=== PATIENT | female | born 1935 | race Caucasian/White ===

== ENCOUNTER 2016-11-07 12:49 | Emergency (ER) | payer OTHER, BC ==
[2016-11-07 13:05] VITALS: BMI 25.7
--- NOTE | 2016-11-07 13:07 | PDOC ---
[id number] No Limitations <Leo Gomez - Last Filed: 11/07/16 14:53> <Juli,Claudy - Last Filed: 11/12/16 16:20> - General Chief Complaint: Chest Pain Stated Complaint: CHEST PAIN Time Seen by Provider: 11/07/16 13:06 - History of Present Illness Initial Comments: 11/07/16 14:56 The patient is a 81 year old female presenting with family, with a significant past medical history of Colon CA (x2), GERD, gastritis, Colon polyp, HTN and HLD , who presents to the emergency department with chest pain for the past couple of days. She describes her chest pain as ranging from mild to moderate, with radiation to her upper back. She notes that the pain is exacerbated when she takes a deep breath. She states that she experienced the same kind of pain week or so ago while she was in [place] and was worked up by the ED there. She was given pain medication and sent home after improvement of symptoms. She states that she flew back to [place] and remained sedetary. Not getting up to use the bathroom or walk the aisles. The patient denies shortness of breath, headache and dizziness. Denies fever, chills, nausea, vomit, diarrhea and constipation. Denies dysuria, frequency, urgency and hematuria. Allergies: None Past surgical history: Colon resection, appendectomy Social history: No alcohol, tobacco or drug use reported (Leo Gomez) Past History <Leo Gomez - Last Filed: 11/07/16 14:53> - Past Medical History Anemia: No Asthma: No Cancer: Yes (COLON CA X 2) Cardiac Disorders: No CVA: No COPD: No CHF: No Dementia: No Diabetes: No GI Disorders: Yes (GERD, GASTRITIS, COLON POLYPS, GALLSTONE) Disorders: No HTN: Yes Hypercholesterolemia: Yes Liver Disease: No Seizures: No Thyroid Disease: Yes (HYPER?) - Surgical History Abdominal Surgery: Yes (colon resection x 2) Appendectomy: Yes Cardiac Surgery: No Cholecystectomy: No Lung Surgery: No Neurologic Surgery: No Orthopedic Surgery: No - Immunization History Immunization Up to Date: Yes - Psycho/Social/Smoking Cessation Hx Anxiety: No Suicidal Ideation: No Smoking Status: No Smoking History: Never smoked Have you smoked in the past 12 months: No Number of Cigarettes Smoked Daily: 0 Information on smoking cessation initiated: No Hx Alcohol Use: No Drug/Substance Use Hx: No Substance Use Type: None Hx Substance Use Treatment: No <Claudy Bustos - Last Filed: 11/12/16 16:20> - Past Medical History Allergies/Adverse Reactions: Allergies Allergy/AdvReac Type Severity Reaction Status Date / Time No Known Allergies Allergy Verified 11/07/16 13:00 Home Medications: Ambulatory Orders Amlodipine Besylate [Norvasc -] 2.5 mg PO DAILY 12/13/13 Calcium Carbonate [Calcium] 600 mg PO BID 12/13/13 Methimazole 5 mg PO DAILY 12/13/13 Escitalopram Oxalate [Lexapro -] 10 mg PO HS #0 12/16/13 Pitavastatin Calcium [Livalo] 1 mg PO DAILY 02/07/14 [place]-3 Fatty Acids [[place]-3] 1,830 mg PO DAILY 02/08/14 Multivit-Min/FA/Lycopen/Lutein [Centrum Silver Tablet] 1 each PO DAILY 04/14/16 Aspirin Coated [Ecotrin -] 81 mg PO DAILY #30 tablet.ec 04/15/16 Polyethylene Glycol 3350 [Miralax 255 gm Btl] 17 gm PO DAILY #1 bottle 04/15/16 Wheat Dextrin [Benefiber] 144 gm PO TID #0 powder 04/15/16 Cardiac Specific PMH - Complaint Specific PMHX Pacemaker: No <Claudy Bustos - Last Filed: 11/12/16 16:20> Review of Systems - Review of Systems Able to Perform ROS?: Yes <Leo Gomez - Last Filed: 11/07/16 14:53> <Claudy Bustos - Last Filed: 11/12/16 16:20> - Review of Systems Comments:: 11/07/16 14:56 CONSTITUTIONAL: No fever, no chills, no fatigue EYES: No visual changes ENT: No ear pain, no sore throat CARDIOVASCULAR: +Chest pain. No palpitations RESPIRATORY: No cough, no SOB GI: No abdominal pain, no nausea, no vomiting, no constipation, no diarrhea GENITOURINARY: No dysuria, no frequency, no hematuria MUSKULOSKELETAL: No backpain, no joint pain, no myalgias SKIN: No rash NEURO: No headache (Leo Gomez) *Physical Exam <Leo Gomez - Last Filed: 11/07/16 14:53> <Claudy Bustos - Last Filed: 11/12/16 16:20> - Vital Signs Last Vital Signs Temp Pulse Resp BP Pulse Ox 98.5 F 78 14 133/69 97 11/07/16 18:23 11/07/16 18:23 11/07/16 18:23 11/07/16 18:23 11/07/16 18:23 - Physical Exam Comments: 11/07/16 14:57 CONSTITUTIONAL: Well-appearing; well-nourished; in no apparent distress HEAD: Normocephalic; atraumatic EYES: PERRL; EOM intact ENMT: External appears normal; normal oropharynx NECK: Supple; non-tender; no cervical lymphadenopathy CARD: Normal S1, S2; no murmurs, rubs, or gallops RESP: Normal chest excursion with respiration; breath sounds clear and equal bilaterally; no wheezes, rhonchi, or rales ABD: Soft, non-distended; non-tender; no palpable organomegaly, no palpable hernias EXT: Normal ROM in all four extremities; non-tender to palpation; distal pulses intact SKIN: Warm, dry, no rash NEURO: No focal neurological deficiencies. (Leo Gomez) Heart Score/ECG Review #1 ECG reviewed & interpreted by me at: 14:09 <Leo Gomez - Last Filed: 11/07/16 14:53> <Claudy Bustos - Last Filed: 11/12/16 16:20> #1 11/07/16 14:09 Ventricular rate: 73 bpm Normal sinus rhythm Poor waves in V1, V2 and V3 (Leo Gomez) ED Treatment Course - LABORATORY CBC & Chemistry Diagram: 11/07/16 13:37 11/07/16 13:37 <Leo Gomez - Last Filed: 11/07/16 14:53> - LABORATORY CBC & Chemistry Diagram: 11/07/16 13:37 11/07/16 13:37 <Claudy Bustos - Last Filed: 11/12/16 16:20> - ADDITIONAL ORDERS Additional order review: 11/07/16 13:37 RBC 4.23 MCV 90.2 MCHC 34.1 RDW 13.3 MPV 7.0 L Neutrophils % 76.8 D Lymphocytes % 13.9 D Monocytes % 8.3 Eosinophils % 0.7 Basophils % 0.3 - RADIOLOGY Radiology Studies Ordered: Category Date Time Status CHEST X-RAY PORTABLE* [RAD] Stat Radiology 11/07/16 13:23 Completed Radiograph Interpretation: 11/07/16 14:09 Chest X-Ray Reviewed by: Dr. Frank Angel Impression; Large heart. No acute chest pathology. (Leo Gomez) - Medications Given in the ED: ED Medications Discontinued Medications Generic Name Dose Route Start Last Admin Trade Name Lucho PRN Reason Stop Dose Admin Acetaminophen 650 mg 11/07/16 15:15 11/07/16 15:26 Tylenol - PO 11/07/16 15:16 650 mg ONCE ONE Administration Al Hydroxide/Mg Hydroxide 30 ml 11/07/16 19:36 11/07/16 20:37 Mylanta Oral Suspension - PO 11/07/16 19:37 30 ml ONCE ONE Administration Famotidine/Sodium Chloride 50 mls @ 100 mls/hr 11/07/16 15:20 11/07/16 15:26 Pepcid 20 Mg Premixed Ivpb - IVPB 11/07/16 15:49 100 mls/hr ONCE ONE Administration Ibuprofen 400 mg 11/07/16 14:15 11/07/16 14:19 Motrin - PO 11/07/16 14:16 400 mg ONCE ONE Administration *DC/Admit/Observation/Transfer <Leo Gomez - Last Filed: 11/07/16 14:53> <Claudy Bustos - Last Filed: 11/12/16 16:20> Diagnosis at time of Disposition: Chest pain - Discharge Dispostion Disposition: HOME Condition at time of disposition: Stable - Referrals Referrals: Kiel Araya MD [Staff Physician] - Panda Dubois MD [Primary Care Provider] - - Patient Instructions Printed Discharge Instructions: DI for Chest Pain Additional Instructions: You have had two negative troponins. However, it is very very important that if your chest pain worsens, return to the ER. Please return to Dr. Araya's office on Wednesday. Feel better! - Attestations Scribe Attestion: 11/07/16 14:57 Documentation prepared by Leo Gomez, acting as ophthalmic medical technician for Claudy Bustos MD (Jason,Leo Floyd)
[2016-11-07 14:01] LABS: BASOPHIL 0.3 % (0-2.0); EOSINOPHIL 0.7 % (0-4.5); MCH 30.7 pg (25.7-33.7); MCHC 34.1 g/dl (32.0-36.0); MEAN CELL VOLUME 90.2 fl (80-96); NEUTROPHILS 76.8 % (42.8-82.8); PLATELET COUNT 138 K/MM3 (134-434); RDW 13.3 % (11.6-15.6); WHITE BLOOD COUNT 6.7 K/mm3 (4.0-10.0)
[2016-11-07] MEDS ORDERED: IBUPROFEN 400 MG TABLET (FP) PO ONE ×2 (14:13→14:15)
[2016-11-07 14:20] LABS: INR 1.13 (0.82-1.09); PROTHROMBIN TIME (PATIENT) 12.5 SEC (9.98-11.88)
[2016-11-07 14:25] LABS: ALBUMIN 4.1 g/dl (3.4-5.0); ANION GAP 9 (8-16); CALCIUM 9.8 mg/dL (8.5-10.1); CO2 29 mmol/L (21-32); CREATININE 0.9 mg/dL (0.55-1.02); GLUCOSE,RANDOM 94 mg/dL (74-106); SGOT/AST 22 U/L (15-37); SGPT/ALT 21 U/L (12-78)
[2016-11-07 14:28] LABS: ALK PHOS 74 U/L (45-117); BILIRUBIN,TOTAL 0.6 mg/dL (0.2-1.0); TOT PROT 7.3 g/dl (6.4-8.2); TROPONIN I < 0.02 ng/ml (0.00-0.05)
[2016-11-07] MEDS ORDERED: ACETAMINOPHEN 325 MG TABLET (FP) PO ONE (15:15)
[2016-11-07] MEDS ORDERED: ACETAMINOPHEN 325 MG TABLET (FP) ONE (15:19)
[2016-11-07] MEDS ORDERED: FAMOTIDINE 20 MG/50 ML IVPB 50 ML IVPB ONE ×2 (15:20)
[2016-11-07 18:26] VITALS: BP 133/69; PULSE 78; TEMP 98.5
[2016-11-07 19:21] LABS: TROPONIN I < 0.02 ng/ml (0.00-0.05)
[2016-11-07] MEDS ORDERED: MAG HYDROX/AL HYDROX/SIMETH 30 ML UNIT-DOSE CUP PO ONE (19:36)
[2016-11-07] MEDS ORDERED: MAG HYDROX/AL HYDROX/SIMETH 30 ML UNIT-DOSE CUP ONE (20:05)
--- NOTE | 2016-11-07 20:12 | PDOC ---
*Physical Exam - Vital Signs Last Vital Signs Temp Pulse Resp BP Pulse Ox 98.5 F 78 14 133/69 97 11/07/16 18:23 11/07/16 18:23 11/07/16 18:23 11/07/16 18:23 11/07/16 18:23 ED Treatment Course - LABORATORY CBC & Chemistry Diagram: 11/07/16 13:37 11/07/16 13:37 - ADDITIONAL ORDERS Additional order review: Laboratory Results 11/07/16 11/07/16 11/07/16 18:45 13:37 13:37 INR 1.13 D-Dimer 206 Sodium 140 Potassium 4.0 Chloride 102 Carbon Dioxide 29 Anion Gap 9 BUN 26 H D Creatinine 0.9 D Creat Clearance w eGFR > 60 Random Glucose 94 Calcium 9.8 Total Bilirubin 0.6 D AST 22 ALT 21 Alkaline Phosphatase 74 D Creatine Kinase 51 73 Troponin I < 0.02 < 0.02 Total Protein 7.3 Albumin 4.1 11/07/16 13:37 RBC 4.23 MCV 90.2 MCHC 34.1 RDW 13.3 MPV 7.0 L Neutrophils % 76.8 D Lymphocytes % 13.9 D Monocytes % 8.3 Eosinophils % 0.7 Basophils % 0.3 - Medications Given in the ED: ED Medications Discontinued Medications Generic Name Dose Route Start Last Admin Trade Name Lucho PRN Reason Stop Dose Admin Acetaminophen 650 mg 11/07/16 15:15 11/07/16 15:26 Tylenol - PO 11/07/16 15:16 650 mg ONCE ONE Administration Famotidine/Sodium Chloride 50 mls @ 100 mls/hr 11/07/16 15:20 11/07/16 15:26 Pepcid 20 Mg Premixed Ivpb - IVPB 11/07/16 15:49 100 mls/hr ONCE ONE Administration Ibuprofen 400 mg 11/07/16 14:15 11/07/16 14:19 Motrin - PO 11/07/16 14:16 400 mg ONCE ONE Administration Medical Decision Making - Medical Decision Making 11/07/16 20:12 CBC, BMP 11/07/16 13:37 11/07/16 13:37 CMP Sodium 140 mmol/L (136-145) 11/07/16 13:37 Potassium 4.0 mmol/L (3.5-5.1) 11/07/16 13:37 Chloride 102 mmol/L (98-107) 11/07/16 13:37 Carbon Dioxide 29 mmol/L (21-32) 11/07/16 13:37 Anion Gap 9 (8-16) 11/07/16 13:37 BUN 26 mg/dL (7-18) H D 11/07/16 13:37 Creatinine 0.9 mg/dL (0.55-1.02) D 11/07/16 13:37 Creat Clearance w eGFR > 60 (>60) 11/07/16 13:37 Random Glucose 94 mg/dL (74-106) 11/07/16 13:37 Calcium 9.8 mg/dL (8.5-10.1) 11/07/16 13:37 Total Bilirubin 0.6 mg/dL (0.2-1.0) D 11/07/16 13:37 AST 22 U/L (15-37) 11/07/16 13:37 ALT 21 U/L (12-78) 11/07/16 13:37 Alkaline Phosphatase 74 U/L (45-117) D 11/07/16 13:37 Creatine Kinase 51 IU/L (26-192) 11/07/16 18:45 Troponin I < 0.02 ng/ml (0.00-0.05) 11/07/16 18:45 Total Protein 7.3 g/dl (6.4-8.2) 11/07/16 13:37 Albumin 4.1 g/dl (3.4-5.0) 11/07/16 13:37 Patient has had two negative troponins. When I had re-examined the patient, the patient reported some improvement in her symptoms. She states that that she has had diarrhea in addition to feeling weak. She reports midsternal sharp chest pain, not always exertional. It does have some atypical components. I recommended admission to the hospital. I had also discussed the case with Dr. Eaton who also agrees if chest pain is not explained, that the patient would benefit from an admission. However, after talking with the patient and her son, the patient does not want to be admitted. States that she understands the risks and that there is risk of ACS. I explained that she does have atypical features, but given her age and medical history, I am unable to fully clear her from a cardiac perspective. After much discussion, the patient and her son decided to follow up with Dr. Araya in 2 days in his office. Pt is AAOx3 and has capacity. Return precautions given including worsening chest pain. I discussed the physical exam findings, ancillary test results and final diagnoses with the patient. I answered all of the patient's questions. The patient was satisfied with the care received and felt comfortable with the discharge plan and treatment plan. The patient will call their primary care physician within 24 hours to arrange follow-up and will return to the Emergency Department with any new, persistant or worsening symptoms. *DC/Admit/Observation/Transfer Diagnosis at time of Disposition: Chest pain Qualifiers: Chest pain type: unspecified Qualified Code(s): R07.9 - Chest pain, unspecified - Discharge Dispostion Disposition: HOME Condition at time of disposition: Stable Admit: No - Referrals Referrals: Panda Dubois MD [Primary Care Provider] - Kiel Araya MD [Staff Physician] - - Patient Instructions Printed Discharge Instructions: DI for Chest Pain Additional Instructions: You have had two negative troponins. However, it is very very important that if your chest pain worsens, return to the ER. Please return to Dr. Araya's office on Wednesday. Feel better! - Post Discharge Activity
--- NOTE | 2016-11-10 07:29 | EKG ---
Test Reason : Blood Pressure : / mmHG Vent. Rate : 093 BPM Atrial Rate : 093 BPM P-R Int : 198 ms QRS Dur : 080 ms QT Int : 366 ms P-R-T Axes : 062 -03 058 degrees QTc Int : 455 ms NORMAL SINUS RHYTHM SEPTAL INFARCT (CITED ON OR BEFORE 03-NOV-2011) INFERIOR INFARCT , POSSIBLY ACUTE ABNORMAL ECG WHEN COMPARED WITH ECG OF 07-NOV-2016 12:56, ST ELEVATION NOW PRESENT IN LATERAL LEADS Confirmed by ROJAS BRONSON MD ([id number]) on 11/10/2016 7:29:01 AM Referred By: Confirmed By:ROJAS BRONSON MD
--- NOTE | 2016-11-10 22:00 | EKG ---
Test Reason : Blood Pressure : / mmHG Vent. Rate : 073 BPM Atrial Rate : 073 BPM P-R Int : 204 ms QRS Dur : 086 ms QT Int : 398 ms P-R-T Axes : 011 -01 057 degrees QTc Int : 438 ms NORMAL SINUS RHYTHM POSSIBLE ANTERIOR INFARCT (CITED ON OR BEFORE 03-NOV-2011) ABNORMAL ECG WHEN COMPARED WITH ECG OF 13-DEC-2013 19:53, NO SIGNIFICANT CHANGE WAS FOUND Confirmed by AIYANA ALVAREZ, ROJAS (2016) on 11/10/2016 9:59:38 PM Referred By: Confirmed By:ROJAS BRONSON MD
== END 2016-11-07 20:38 | disposition home or self-care (01) ==
LOC: JER 12:49
PROC: 3E033GC Introduction of Other Therapeutic Substance into Peripheral Vein, Percutaneous Approach (ICD-10-PCS; principal; 2016-11-07)
DX: R07.9 Chest pain, unspecified (principal); I10 Essential (primary) hypertension; E78.00 Pure hypercholesterolemia, unspecified; K21.9 Gastro-esophageal reflux disease without esophagitis; K29.00 Acute gastritis without bleeding; Z85.038 Personal history of other malignant neoplasm of large intestine
CPT/HCPCS: 36415; 71010-TC; 80053; 82550; 84484; 85025; 85379; 85610; 93005; 93010; 96365; 99285-25

== ENCOUNTER 2016-11-08 08:51 | Emergency (ER) | payer OTHER, BC ==
[2016-11-08 08:57] VITALS: BMI 25.7
[2016-11-08] MEDS ORDERED: ASPIRIN 81 MG CHEWABLE TABLETS ONE (09:14)
[2016-11-08] MEDS ORDERED: SODIUM CHLORIDE 500 ML IV STA (09:16)
[2016-11-08] MEDS ORDERED: ASPIRIN 81 MG CHEWABLE TABLETS PO ONE (09:16)
[2016-11-08] MEDS ORDERED: NITROGLYCERIN SUBLINGUAL 1/150 0.4 MG TAB SL PRN (09:16)
--- NOTE | 2016-11-08 09:27 | PDOC ---
History of Present Illness <Berkley Quiros - Last Filed: 11/08/16 10:41> - History of Present Illness Initial Comments: 11/08/16 09:27 Patient seen immediately on arrival by me, documentation done later 81-year-old female with a past medical history of colon cancer, GERD, gastritis , colon polyps, hypertension, and hyperlipidemia She was in the emergency department yesterday with chest pain off and on for the past few days She describes her chest pain as mid to upper chest radiating to the neck and back, off and on She had 2 sets of negative cardiac enzymes yesterday, and signed out AGAINST MEDICAL ADVICE She states that she went to bed, and awakened this morning with more severe substernal and upper chest pain radiating to her neck and back She states the pain still is worse with deep inspiration She states that she was nauseated and vomited this morning She states that she had diaphoresis with the pain this morning She denies any shortness of breath She describes her chest pain is 8 on 10 at this time She has no prior history of CAD or stents Patient was seen immediately on arrival by me, as she is still actively having chest pain at this time 11/08/16 09:57 <Natalee Brito - Last Filed: 11/08/16 21:55> - General Chief Complaint: Lightheaded Stated Complaint: WEAKNESS, VOMITING Time Seen by Provider: 11/08/16 09:16 Past History <Berkley Quiros - Last Filed: 11/08/16 10:41> - Past Medical History Anemia: No Asthma: No Cancer: Yes (COLON CA X 2) Cardiac Disorders: No CVA: No COPD: No CHF: No Dementia: No Diabetes: No GI Disorders: Yes (GERD, GASTRITIS, COLON POLYPS, GALLSTONE) Disorders: No HTN: Yes Hypercholesterolemia: Yes Liver Disease: No Seizures: No Thyroid Disease: Yes (HYPER?) - Surgical History Abdominal Surgery: Yes (colon resection x 2) Appendectomy: Yes Cardiac Surgery: No Cholecystectomy: No Lung Surgery: No Neurologic Surgery: No Orthopedic Surgery: No - Immunization History Immunization Up to Date: Yes - Psycho/Social/Smoking Cessation Hx Anxiety: No Suicidal Ideation: No Smoking Status: No Smoking History: Never smoked Have you smoked in the past 12 months: No Number of Cigarettes Smoked Daily: 0 Information on smoking cessation initiated: No Hx Alcohol Use: No Drug/Substance Use Hx: No Substance Use Type: None Hx Substance Use Treatment: No <Natalee Brito - Last Filed: 11/08/16 21:55> - Past Medical History Allergies/Adverse Reactions: Allergies Allergy/AdvReac Type Severity Reaction Status Date / Time No Known Allergies Allergy Verified 11/08/16 08:53 Home Medications: Ambulatory Orders Amlodipine Besylate [Norvasc -] 2.5 mg PO DAILY 12/13/13 Calcium Carbonate [Calcium] 600 mg PO BID 12/13/13 Methimazole 5 mg PO DAILY 12/13/13 Escitalopram Oxalate [Lexapro -] 10 mg PO HS #0 12/16/13 Pitavastatin Calcium [Livalo] 1 mg PO DAILY 02/07/14 [place]-3 Fatty Acids [[place]-3] 1,830 mg PO DAILY 02/08/14 Multivit-Min/FA/Lycopen/Lutein [Centrum Silver Tablet] 1 each PO DAILY 04/14/16 Aspirin Coated [Ecotrin -] 81 mg PO DAILY #30 tablet.ec 04/15/16 Polyethylene Glycol 3350 [Miralax 255 gm Btl] 17 gm PO DAILY #1 bottle 04/15/16 Wheat Dextrin [Benefiber] 144 gm PO TID #0 powder 04/15/16 *Physical Exam - Vital Signs Last Vital Signs Temp Pulse Resp BP Pulse Ox 97.9 F 87 14 90/59 97 11/08/16 09:50 11/08/16 09:50 11/08/16 09:50 11/08/16 09:50 11/08/16 09:50 <Berkley Quiros - Last Filed: 11/08/16 10:41> - Vital Signs Last Vital Signs Temp Pulse Resp BP Pulse Ox 97.7 F 97 H 18 116/73 100 11/08/16 08:55 11/08/16 08:55 11/08/16 08:55 11/08/16 08:55 11/08/16 08:55 - Physical Exam Comments: 11/08/16 09:31 Physical exam Last Vital Signs Temp Pulse Resp BP Pulse Ox 97.7 F 97 H 18 116/73 100 11/08/16 08:55 11/08/16 08:55 11/08/16 08:55 11/08/16 09:21 11/08/16 08:55 GENERAL: The patient is awake, alert, and fully oriented, and in no apparent distress. HEAD: Normal with no signs of trauma. EYES: sclera anicteric, conjunctiva are normal. ENT: Moist mucous membranes. NECK: Normal range of motion, supple LUNGS: Breath sounds equal, clear to auscultation bilaterally. No wheezes, and no crackles. HEART: Regular rate and rhythm, normal S1 and S2 without murmur, rub or gallop. ABDOMEN: Soft, nontender, normoactive bowel sounds. No guarding, no rebound. No masses appreciated. EXTREMITIES: Normal range of motion, no edema. No clubbing or cyanosis. No cords, erythema, or tenderness. NEUROLOGICAL: Cranial nerves II through XII grossly intact. Normal speech, normal gait. PSYCH: Normal mood, normal affect. SKIN: Warm, Dry, normal turgor, no rashes or lesions noted. <Natalee Brito - Last Filed: 11/08/16 21:55> ED Treatment Course - LABORATORY CBC & Chemistry Diagram: 11/08/16 09:12 11/08/16 09:12 - ADDITIONAL ORDERS Additional order review: Laboratory Results 11/08/16 11/08/16 11/08/16 10:01 09:22 09:12 INR PTT (Actin FS) 34.2 D-Dimer 354 H Sodium Potassium Chloride Carbon Dioxide Anion Gap BUN Creatinine Creat Clearance w eGFR Random Glucose Calcium Magnesium Total Bilirubin AST ALT Alkaline Phosphatase Creatine Kinase Troponin I B-Natriuretic Peptide 412.87 Total Protein Albumin Triglycerides 78 D Cholesterol 113 D Total LDL Cholesterol 57 HDL Cholesterol 51 D 11/08/16 11/08/16 09:12 09:12 INR 1.37 H PTT (Actin FS) D-Dimer Sodium 138 Potassium 4.3 Chloride 101 Carbon Dioxide 25 Anion Gap 12 BUN 26 H Creatinine 1.0 Creat Clearance w eGFR 53.21 Random Glucose 196 H D Calcium 9.1 Magnesium 2.3 Total Bilirubin 1.0 D AST 36 D ALT 40 D Alkaline Phosphatase 68 Creatine Kinase 50 Troponin I < 0.02 B-Natriuretic Peptide Total Protein 7.0 Albumin 3.8 Triglycerides Cholesterol Total LDL Cholesterol HDL Cholesterol 11/08/16 09:12 RBC 4.20 MCV 92.3 MCHC 33.5 RDW 13.7 MPV 8.3 D Neutrophils % 79.0 Lymphocytes % 11.1 D Monocytes % 9.5 Eosinophils % 0.1 D Basophils % 0.3 - Medications Given in the ED: ED Medications Discontinued Medications Generic Name Dose Route Start Last Admin Trade Name Lucho PRN Reason Stop Dose Admin Aspirin 325 mg 11/08/16 09:16 11/08/16 09:20 Asa - PO 11/08/16 09:17 325 mg ONCE ONE Administration Atorvastatin Calcium 80 mg 11/08/16 09:45 11/08/16 10:22 Lipitor - PO 11/08/16 09:46 80 mg ONCE ONE Administration Clopidogrel Bisulfate 600 mg 11/08/16 09:45 11/08/16 10:22 Plavix - PO 11/08/16 09:46 600 mg ONCE ONE Administration Sodium Chloride 500 mls @ 500 mls/hr 11/08/16 09:16 11/08/16 09:21 Normal Saline - IV 11/08/16 10:15 500 mls/hr ASDIR STA Administration Metoprolol Tartrate 12.5 mg 11/08/16 09:45 11/08/16 10:22 Lopressor - PO 11/08/16 09:46 12.5 mg ONCE ONE Administration <Berkley Quiros - Last Filed: 11/08/16 10:41> - LABORATORY CBC & Chemistry Diagram: 11/08/16 09:12 11/08/16 09:12 - RADIOLOGY Radiology Studies Ordered: Category Date Time Status CHEST PA & LAT [RAD] Stat Radiology 11/08/16 09:16 Ordered <Natalee Brito - Last Filed: 11/08/16 21:55> Medical Decision Making - Medical Decision Making 11/08/16 10:41 Courtesy call placed to Dr. Panda Moscoso. Informed by service that Dr. Vitaly Mosley is covering. Dr. Kay Howard/Lupe Agudelo covers for Dr. Vitaly Mosley. <Berkley Quiros - Last Filed: 11/08/16 10:41> - Critical Care Time Total Critical Care Time (minutes): 45 Critical Care Statement: The care of this patient involved high complexity decision making to prevent further life threatening deterioration of the patient 's condition and/or to evalute & treat vital organ system(s) failure or risk of failure. - Medical Decision Making 11/08/16 09:31 Patient seen immediately on arrival by me documentation done later Pt with CP, STEMI on EKG EKG Normal sinus rhythm 93, left axis deviation There is ST elevation in the inferolateral leads 2, 3, F, V5, and V6 - STEMI Other nonspecific ST-T waves are noted When compared to the EKG of 11/07/16, yesterday afternoon There was a very subtle hint of possible ST elevation in the inferolateral leads , but it is certainly more pronounced on today's EKG Started with 325 of aspirin, and nitroglycerin Spoke to Dr. [id number]-she is on her way in and speaking to interventional cardiology at [facility] The EKG was sent to Dr. Beck by photograph + text message 11/08/16 09:55 EKG #2 There is slightly more pronounced ST elevation in the inferolateral leads, and now also in the septal leads of V3 V4 STEMI Patient is getting nitroglycerin drip at 3 mics per minute, heparin bolus and heparin drip, Plavix, Lipitor She states her chest pain is starting to improve, but still a 6 out of 10 Patient's son is with her, discussed potential Transfer to [facility] Dr. Beck is on the way in 11/08/16 10:12 Dr. 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 Beck, and she felt that at 4 cm, and unchanged from 201209/28/2014, that this was not an issue at this time 11/08/16 10:25 Transport team here to take patient to the cardiac Licensed Nuclear Control Room Operator at [facility] 11/08/16 10:33 Chest pain down to 3 out of 10 at time of transport First set cardiac enzymes negative Laboratory Results - last 24 hr 11/08/16 11/08/16 11/08/16 09:12 09:12 09:12 WBC 8.0 RBC 4.20 Hgb 13.0 Hct 38.8 MCV 92.3 MCHC 33.5 RDW 13.7 Plt Count 132 L MPV 8.3 D Neutrophils % 79.0 Lymphocytes % 11.1 D Monocytes % 9.5 Eosinophils % 0.1 D Basophils % 0.3 INR 1.37 H PTT (Actin FS) D-Dimer Sodium 138 Potassium 4.3 Chloride 101 Carbon Dioxide 25 Anion Gap 12 BUN 26 H Creatinine 1.0 Creat Clearance w eGFR 53.21 Random Glucose 196 H D Calcium 9.1 Magnesium 2.3 Total Bilirubin 1.0 D AST 36 D ALT 40 D Alkaline Phosphatase 68 Creatine Kinase 50 Troponin I < 0.02 B-Natriuretic Peptide Total Protein 7.0 Albumin 3.8 Triglycerides Cholesterol Total LDL Cholesterol HDL Cholesterol 11/08/16 11/08/16 11/08/16 09:12 09:22 10:01 WBC RBC Hgb Hct MCV MCHC RDW Plt Count MPV Neutrophils % Lymphocytes % Monocytes % Eosinophils % Basophils % INR PTT (Actin FS) 34.2 D-Dimer 354 H Sodium Potassium Chloride Carbon Dioxide Anion Gap BUN Creatinine Creat Clearance w eGFR Random Glucose Calcium Magnesium Total Bilirubin AST ALT Alkaline Phosphatase Creatine Kinase Troponin I B-Natriuretic Peptide 412.87 Total Protein Albumin Triglycerides 78 D Cholesterol 113 D Total LDL Cholesterol 57 HDL Cholesterol 51 D 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 Pillai Transfer comment: 11/08/16 10:34 Patient going directly to cardiac Licensed [facility] Control Room Operator at [facility] <Natalee Brito - Last Filed: 11/08/16 21:55> Diagnosis at time of Disposition: Acute VA, Chest pain, ST elevation myocardial infarction (STEMI) - Discharge Dispostion Disposition: TRANSFER ACUTE CARE/OTHER HOSP Condition at time of disposition: Fair - Referrals Referrals: Panda Dubois MD [Primary Care Provider] -
[2016-11-08] MEDS ORDERED: NITROGLYCERIN SUBLINGUAL 1/150 0.4 MG TAB ONE (09:28)
[2016-11-08] MEDS ORDERED: NITROGLYCERIN 25MG/D5W 250ML 250 ML IVPB ONE (09:28)
[2016-11-08] MEDS ORDERED: NITROGLYCERIN 25MG/D5W 250ML 250 ML IVPB SCH (09:30)
[2016-11-08 09:34] LABS: BASOPHIL 0.3 % (0-2.0); EOSINOPHIL 0.1 % (0-4.5); MCH 30.9 pg (25.7-33.7); MCHC 33.5 g/dl (32.0-36.0); MEAN CELL VOLUME 92.3 fl (80-96); MEAN PLT VOLUME 8.3 fl (7.5-11.1); PLATELET COUNT 132 K/MM3 (134-434); RDW 13.7 % (11.6-15.6)
[2016-11-08] MEDS ORDERED: HEPARIN NA (PORCINE) 5,000 UNITS/ML 1ML VIAL IVPUSH PRN (09:44)
[2016-11-08] MEDS ORDERED: CLOPIDOGREL BISULFATE 300 MG TABLET PO ONE (09:45)
[2016-11-08] MEDS ORDERED: METOPROLOL TARTRATE 25 MG TABLET (FP) PO ONE (09:45)
[2016-11-08] MEDS ORDERED: HEPARIN INFUSION - 500 ML IVPB SCH (09:45)
[2016-11-08] MEDS ORDERED: ATORVASTATIN CA 80 MG TABLET (FP) PO ONE (09:45)
[2016-11-08 09:48] LABS: INR 1.37 (0.82-1.09); PROTHROMBIN TIME (PATIENT) 15.2 SEC (9.98-11.88)
[2016-11-08] MEDS ORDERED: HEPARIN INFUSION - 500 ML IVPB ONE (10:03)
[2016-11-08] MEDS ORDERED: METOPROLOL TARTRATE 25 MG TABLET (FP) ONE (10:09)
[2016-11-08] MEDS ORDERED: CLOPIDOGREL BISULFATE 300 MG TABLET ONE (10:09)
[2016-11-08] MEDS ORDERED: ATORVASTATIN CA 80 MG TABLET (FP) ONE (10:09)
[2016-11-08 10:12] LABS: ALBUMIN 3.8 g/dl (3.4-5.0); ANION GAP 12 (8-16); CALCIUM 9.1 mg/dL (8.5-10.1); CO2 25 mmol/L (21-32); GLUCOSE,RANDOM 196 mg/dL (74-106); MAGNESIUM 2.3 mg/dL (1.8-2.4); SGOT/AST 36 U/L (15-37); SGPT/ALT 40 U/L (12-78)
[2016-11-08 10:16] LABS: ALK PHOS 68 U/L (45-117); TROPONIN I < 0.02 ng/ml (0.00-0.05)
[2016-11-08 10:41] VITALS: BP 111/70; TEMP 97.9
[2016-11-08 10:44] VITALS: PULSE 87
--- NOTE | 2016-11-10 07:36 | EKG ---
Test Reason : Blood Pressure : / mmHG Vent. Rate : 091 BPM Atrial Rate : 091 BPM P-R Int : 200 ms QRS Dur : 082 ms QT Int : 386 ms P-R-T Axes : 063 008 063 degrees QTc Int : 474 ms NORMAL SINUS RHYTHM WITH SINUS ARRHYTHMIA POSSIBLE ANTERIOR INFARCT (CITED ON OR BEFORE 03-NOV-2011) INFEROLATERAL INJURY PATTERN INFERIOR INFARCT , POSSIBLY ACUTE ABNORMAL ECG WHEN COMPARED WITH ECG OF 08-NOV-2016 09:03, NO SIGNIFICANT CHANGE WAS FOUND Confirmed by ROJAS BRONSON MD (2016) on 11/10/2016 7:35:46 AM Referred By: Confirmed By:ROJAS BRONSON MD
== END 2016-11-08 10:51 | disposition short-term general hospital (02) ==
LOC: JER 08:51
PROC: 3E0337Z Introduction of Electrolytic and Water Balance Substance into Peripheral Vein, Percutaneous Approach (ICD-10-PCS; principal; 2016-11-08)
PROC: 3E033GC Introduction of Other Therapeutic Substance into Peripheral Vein, Percutaneous Approach (ICD-10-PCS; 2016-11-08)
PROC: 3E033GC Introduction of Other Therapeutic Substance into Peripheral Vein, Percutaneous Approach (ICD-10-PCS; 2016-11-08)
DX: I21.19 ST elevation (STEMI) myocardial infarction involving other coronary artery of inferior wall (principal); I10 Essential (primary) hypertension; E78.00 Pure hypercholesterolemia, unspecified; E05.80 Other thyrotoxicosis without thyrotoxic crisis or storm; Z85.038 Personal history of other malignant neoplasm of large intestine
CPT/HCPCS: 36415; 71010-TC; 80053; 80061; 82550; 83721; 83735; 83880; 84484; 85025; 85379; 85610; 85730; 93005; 93010; 96361; 96365; 96367; 99285-25; J1644

== ENCOUNTER 2017-05-01 06:16 | Emergency (ER) | payer OTHER, BC ==
[2017-05-01] MEDS ORDERED: diphenhydrAMINE HCL 25 MG CAPSULE (FP) PO ONE ×2 (06:37→06:45)
[2017-05-01] MEDS ORDERED: predniSONE 20 MG TABLET (UD) PO ONE (06:37)
[2017-05-01 06:42] VITALS: BP 147/90; PULSE 79; TEMP 98.1; BMI 25.6
--- NOTE | 2017-05-01 06:43 | PDOC ---
History of Present Illness - General Stated Complaint: RASH Time Seen by Provider: 05/01/17 06:33 History Source: Patient, Family (Son) Exam Limitations: No Limitations - History of Present Illness Initial Comments: 05/01/17 06:37 81yo Female patient presents to ED with son c/o rash to hands, arm and face. Son state mother out in garden pulling up twigs yesterday and began developing a rash shortly after. Patient states rash worsened and she has been itching and scratching with no relief. Denies OTC medication use. Timing/Duration: reports: yesterday Severity: Yes: moderate Location: reports: extremities, face, hands Respiratory Risk Factors: reports: other Modifying Factors: improves with: scratching Associated Symptoms: reports: blisters, change in skin texture Past History - Travel Traveled outside of the country in the last 30 days: No Close contact w/someone who was outside of country & ill: No - Past Medical History Allergies/Adverse Reactions: Allergies Allergy/AdvReac Type Severity Reaction Status Date / Time No Known Allergies Allergy Verified 11/08/16 08:53 Home Medications: Ambulatory Orders Amlodipine Besylate [Norvasc -] 2.5 mg PO DAILY 12/13/13 Calcium Carbonate [Calcium] 600 mg PO BID 12/13/13 Methimazole 5 mg PO DAILY 12/13/13 Escitalopram Oxalate [Lexapro -] 10 mg PO HS #0 12/16/13 Pitavastatin Calcium [Livalo] 1 mg PO DAILY 02/07/14 [place]-3 Fatty Acids [[place]-3] 1,830 mg PO DAILY 02/08/14 Multivit-Min/FA/Lycopen/Lutein [Centrum Silver Tablet] 1 each PO DAILY 04/14/16 Aspirin Coated [Ecotrin -] 81 mg PO DAILY #30 tablet.ec 04/15/16 Polyethylene Glycol 3350 [Miralax 255 gm Btl] 17 gm PO DAILY #1 bottle 04/15/16 Wheat Dextrin [Benefiber] 144 gm PO TID #0 powder 04/15/16 Diphenhydramine HCl [Benadryl -] 25 mg PO Q8H PRN #21 capsule 05/01/17 Famotidine [Pepcid -] 20 mg PO BID #20 tablet 05/01/17 Prednisone [Deltasone -] 10 mg PO ASDIR #16 tab 05/01/17 Anemia: No Asthma: No Cancer: Yes (COLON CA X 2) Cardiac Disorders: No CVA: No COPD: No CHF: No Dementia: No Diabetes: No GI Disorders: Yes (GERD, GASTRITIS, COLON POLYPS, GALLSTONE) Disorders: No HTN: Yes Hypercholesterolemia: Yes Liver Disease: No Seizures: No Thyroid Disease: Yes (HYPER?) - Surgical History Abdominal Surgery: Yes (colon resection x 2) Appendectomy: Yes Cardiac Surgery: No Cholecystectomy: No Lung Surgery: No Neurologic Surgery: No Orthopedic Surgery: No - Immunization History Immunization Up to Date: Yes - Suicide/Smoking/Psychosocial Hx Smoking Status: No Smoking History: Never smoked Have you smoked in the past 12 months: No Number of Cigarettes Smoked Daily: 0 Hx Alcohol Use: No Drug/Substance Use Hx: No Substance Use Type: None Hx Substance Use Treatment: No Review of Systems - Review of Systems Able to Perform ROS?: Yes Is the patient limited Slovak proficient: No Integumentary: Yes: Rash All Other Systems: Reviewed and Negative *Physical Exam - Physical Exam General Appearance: Yes: Nourished, Appropriately Dressed, Mild Distress. No: Apparent Distress, Moderate Distress, Severe Distress HEENT: positive: EOMI, STEPHEN, Normal ENT Inspection, Normal Voice, Symmetrical, TMs Normal, Pharynx Normal. negative: Tonsillar Exudate, Tonsillar Erythema, Nasal Congestion, Hearing Grossly Normal, TM Bulging, TM Dull, TM Erythema Neck: positive: Trachea midline, Supple. negative: Lymphadenopathy (R), Lymphadenopathy (L) Respiratory/Chest: positive: Lungs Clear, Normal Breath Sounds. negative: Chest Tender, Respiratory Distress, Accessory Muscle Use, Labored Respiration, Rapid RR Cardiovascular: positive: Regular Rhythm, Regular Rate Gastrointestinal/Abdominal: positive: Normal Bowel Sounds, Soft. negative: Distended, Guarding, Rebound Musculoskeletal: positive: Normal Inspection. negative: CVA Tenderness, Vertebral Tenderness Extremity: positive: Normal Capillary Refill, Normal Inspection, Normal Range of Motion, Other (See Skin examination) Integumentary: positive: Normal Color, Dry, Warm, Erythema, Rash (Bilateral upper extremities, hands and face. 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, Fully Oriented, Alert, Normal Mood/ Affect, Normal Response, Motor Strength 5/5 *DC/Admit/Observation/Transfer Diagnosis at time of Disposition: Contact dermatitis Qualifiers: Contact dermatitis type: irritant Contact dermatitis trigger: non-food plants Qualified Code(s): L24.7 - Irritant contact dermatitis due to plants, except food - Discharge Dispostion Disposition: HOME Condition at time of disposition: Stable Admit: No - Prescriptions Prescriptions: Diphenhydramine HCl [Benadryl -] 25 mg PO Q8H PRN #21 capsule PRN Reason: Itching Prednisone [Deltasone -] 10 mg PO ASDIR #16 tab Famotidine [Pepcid -] 20 mg PO BID #20 tablet - Patient Instructions Printed Discharge Instructions: DI for General Allergic Reactions, DI for Contact Dermatitis Additional Instructions: Take medications as prescribed. Follow up with your primary care provider for further evaluation. Return if symptoms worsen or any concerns for further evaluation. Print Language: JAMAICAN
[2017-05-01] MEDS ORDERED: predniSONE 20 MG TABLET (UD) ONE (06:45)
== END 2017-05-01 06:52 | disposition home or self-care (01) ==
LOC: JER 06:16
DX: L24.7 Irritant contact dermatitis due to plants, except food (principal); I10 Essential (primary) hypertension; E78.00 Pure hypercholesterolemia, unspecified; E05.90 Thyrotoxicosis, unspecified without thyrotoxic crisis or storm; Z87.19 Personal history of other diseases of the digestive system; Z85.038 Personal history of other malignant neoplasm of large intestine
CPT/HCPCS: 99281-25

== ENCOUNTER 2018-05-31 02:38 | Inpatient (IN) | payer OTHER, BC ==
[2018-05-31 03:36] LABS: URINE APPEARANCE CLEAR; URINE BILIRUBIN NEGATIVE (<2.0 mg/dL); URINE COLOR YELLOW; URINE GLUCOSE (UA) NEGATIVE (NEGATIVE); URINE KETONE NEGATIVE (NEGATIVE); URINE LEUK ESTERASE 2+ (NEGATIVE); URINE NITRITE NEGATIVE (NEGATIVE); URINE PROTEIN NEGATIVE (NEGATIVE); URINE UROBILINOGEN NEGATIVE mg/dL (0.2-1.0)
[2018-05-31 03:45] LABS: EPI CELLS RARE /HPF (FEW); URINE BACTERIA FEW /hpf (NONE SEEN); URINE MUCUS RARE
--- NOTE | 2018-05-31 03:54 | PDOC ---
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 Pt states the pain is intermittent, and lasts a few seconds. The pain woke her from sleep, and is associated with nausea, but no vomiting. Pt has had regular BMs and flatulence, no blood in BM, and has been eating and drinking without difficulty. She takes "a glass" of miralax every night for constipation, which she says has helped with regular BMs. She denies any fevers , chills, headache, LOC, chest pain, reflux, SOB, urinary symptoms, diarrhea, flank pain, or joint pain. She also had a dental appointment the day of presentation at noon, and the dentist noticed more blood than usual. The pt takes 1 baby aspirin per day. She denies smoking or alcohol use. 05/31/18 04:56 Past History - Travel Traveled outside of the country in the last 30 days: No Close contact w/someone who was outside of country & ill: No - Past Medical History Allergies/Adverse Reactions: Allergies Allergy/AdvReac Type Severity Reaction Status Date / Time No Known Allergies Allergy Verified 05/31/18 03:10 Home Medications: Ambulatory Orders Amlodipine Besylate [Norvasc -] 2.5 mg PO DAILY 12/13/13 Calcium Carbonate [Calcium] 600 mg PO BID 12/13/13 Escitalopram Oxalate [Lexapro -] 10 mg PO HS #0 12/16/13 Pitavastatin Calcium [Livalo] 1 mg PO DAILY 02/07/14 [place]-3 Fatty Acids [[place]-3] 1,830 mg PO DAILY 02/08/14 Multivit-Min/FA/Lycopen/Lutein [Centrum Silver Tablet] 1 each PO DAILY 04/14/16 Aspirin Coated [Ecotrin -] 81 mg PO DAILY #30 tablet.ec 04/15/16 Diphenhydramine HCl [Benadryl -] 25 mg PO Q8H PRN #21 capsule 05/01/17 Famotidine [Pepcid -] 20 mg PO BID #20 tablet 05/01/17 Anemia: No Asthma: No Cancer: Yes (COLON CA X 2) Cardiac Disorders: No CVA: No COPD: No CHF: No Dementia: No Diabetes: No GI Disorders: Yes (GERD, GASTRITIS, COLON POLYPS, GALLSTONE) Disorders: No HTN: Yes Hypercholesterolemia: Yes Liver Disease: No Seizures: No Thyroid Disease: Yes (HYPER?) - Surgical History Abdominal Surgery: Yes (colon resection x 2) Appendectomy: Yes Cardiac Surgery: No Cholecystectomy: No Lung Surgery: No Neurologic Surgery: No Orthopedic Surgery: No - Reproductive History Is Patient Now?: No Therapeutic (s) & number: No - Immunization History Immunization Up to Date: Yes - Suicide/Smoking/Psychosocial Hx Smoking Status: No Smoking History: Never smoked Have you smoked in the past 12 months: No Number of Cigarettes Smoked Daily: 0 Information on smoking cessation initiated: No Hx Alcohol Use: No Drug/Substance Use Hx: No Substance Use Type: None Hx Substance Use Treatment: No Review of Systems - Review of Systems Able to Perform ROS?: Yes Is the patient limited Lithuanian proficient: No Constitutional: Yes: Weight Stable. No: Chills, Diaphoresis, Fever, Loss of Appetite, Night Sweats, Weakness HEENTM: No: Blurred Vision, Recent change in vision, Throat Pain, Difficulty Swallowing Respiratory: No: Cough, Orthopnea, Shortness of Breath Cardiac (ROS): No: Chest Pain, Edema, Irregular Heart Rate, Lightheadedness, Palpitations, Syncope, Chest Tightness ABD/GI: Yes: Nausea, Poor Fluid Intake ("never drinks enough water"), Abdominal cramping. No: Abdominal Distended, Constipated, Diarrhea, Difficulty Swallowing , Poor Appetite, Rectal Bleeding, Vomiting, Indigestion : Yes: Incontinence (mild night-time incontinence). No: Burning, Dysuria, Frequency, Flank Pain, Pain, Urgency Musculoskeletal: No: Back Pain, Joint Pain, Muscle Pain Integumentary: No: Bruising, Rash Neurological: No: Headache, Seizure, Weakness Psychiatric: No: Sleep Pattern Change, Change in Appetite Endocrine: No: Increased Urine, Change in Weight Hematologic/Lymphatic: No: Blood Clots, Easy Bleeding, Easy Bruising All Other Systems: Reviewed and Negative *Physical Exam - Vital Signs Last Vital Signs Temp Pulse Resp BP Pulse Ox 97.5 F L 82 20 164/91 98 05/31/18 02:40 05/31/18 02:40 05/31/18 02:40 05/31/18 02:40 05/31/18 02:40 - Physical Exam General Appearance: Yes: Nourished, Appropriately Dressed, Moderate Distress ( Pt able to lie comfortably, but has severe intermittent abdominal pain. ) HEENT: positive: EOMI, STEPHEN, Normal ENT Inspection, Normal Voice, Symmetrical, Pharynx Normal, Hearing Grossly Normal. negative: Scleral Icterus (R), Scleral Icterus (L), Tonsillar Exudate, Tonsillar Erythema Neck: positive: Trachea midline, Normal Thyroid, Supple. negative: Tender, Rigid, Lymphadenopathy (R), Lymphadenopathy (L) Respiratory/Chest: positive: Lungs Clear, Normal Breath Sounds. negative: Chest Tender, Respiratory Distress, Accessory Muscle Use Cardiovascular: positive: Regular Rhythm, Regular Rate, S1, S2. negative: Edema , JVD, Murmur Vascular Pulses: Carotid (R): 4+, Carotid (L): 4+ Gastrointestinal/Abdominal: positive: Tender (diffuse lower quadrant tenderness) , Flat, Soft, Increased Bowel Sounds. negative: Normal Bowel Sounds, Organomegaly, Pulsatile Mass, Distended, Guarding, Rebound Rectal Exam: positive: deferred Lymphatic: negative: Adenopathy, Tenderness Musculoskeletal: positive: Normal Inspection. negative: CVA Tenderness Extremity: positive: Normal Capillary Refill, Normal Inspection, Normal Range of Motion, Pelvis Stable, Other (decreased skin turgor). negative: Tender, Pedal Edema Integumentary: positive: Normal Color, Dry, Warm. 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 NML intact, Fully Oriented, Alert, Normal Mood/ Affect, Normal Response, Motor Strength 5/5 ED Treatment Course - LABORATORY CBC & Chemistry Diagram: 05/31/18 04:16 05/31/18 04:16 - ADDITIONAL ORDERS Additional order review: Laboratory Results 05/31/18 03:12 Urine Color Yellow Urine Appearance Clear Urine pH 8.0 Ur Specific [place] 1.013 Urine Protein Negative Urine Glucose (UA) Negative Urine Ketones Negative Urine Blood Negative Urine Nitrite Negative Urine Bilirubin Negative Urine Urobilinogen Negative Ur Leukocyte Esterase 2+ H Urine WBC (Auto) 16 Urine RBC (Auto) 4 Ur Epithelial Cells Rare Urine Bacteria Few Urine Mucus Rare Medical Decision Making - Medical Decision Making Pt seen at bedside, also seen by Dr. Miller. Pt presents with lower abdominal pain, intermittent, and lasts a few seconds. Pain woke her from sleep, and is associated with nausea, but no vomiting. Pt has PMH of colon CA, HTN, HLD, and volvulus that required surgical intervention in 2007. Pt has had regular BMs and flatulence, no blood in BM, and has been eating and drinking without difficulty. PE showed diffuse lower abdominal tenderness, no rebound, no guarding, with hyperactive bowel sounds. Pt appeared dry (decreased skin turgor , dry oral membranes). Considering volvulus vs UTI vs ischemic bowel. Ordered CBC, CMP, lipase, Mg, Phos, lactic acid, coags, type & screen (in case of surgical abdomen), ECG, troponin (r/o ACS), UA and urine culture. Pt provided 4 mg IV morphine for pain, 4 mg IV zofran for nausea, and 1 L NS. 05/31/18 04:47 CBC WNL. UA showed leuk est 2+, WBC 16, RBC 4. Will proceed with CT to r/o obstruction or volvulus considering pt history. Pending further labs. 05/31/18 04:55 CMP generally WNL. Lipase 48, lactic 2.5, trop <.02. Awaiting CT scan. 05/31/18 05:16 Pt states abdominal pain is improved, limited to RLQ. Hyperactive bowel sounds auscultated. Awaiting CT scan. 05/31/18 05:[address] scan. Ordered 2nd lactic to be done when pt returns from CT, alerted nurse. 05/31/18 06:15 Dr. Miller has read CT as SBO. Paged admitting team. Also calling [facility] for evaluation of pt. Answering service paged Dr. Woods. 05/31/18 06:41 Pt signed out to Dr. Knight. Awaiting pages from admitting team and Dr. Woods. Pt made aware of plan and she is understanding. Repeat lactic acid sent to lab. 05/31/18 07:04 *DC/Admit/Observation/Transfer Diagnosis at time of Disposition: SBO (small bowel obstruction) - Discharge Dispostion Condition at time of disposition: Stable Decision to Admit order: Yes - Referrals Referrals: Panda Dubois MD [Primary Care Provider] - - Patient Instructions - Post Discharge Activity
[2018-05-31] MEDS ORDERED: SODIUM CHLORIDE 1,000 ML IV STA ×2 (04:12→06:45)
[2018-05-31] MEDS ORDERED: morphine CARPU-JECT 4 MG/1 ML DISP.SYRIN IVPUSH ONE (04:12)
[2018-05-31] MEDS ORDERED: ONDANSETRON 4 MG/2 ML VIAL IVPUSH ONE (04:29)
[2018-05-31] MEDS ORDERED: morphine SULFATE 4 MG/ML VIAL ONE (04:30)
[2018-05-31] MEDS ORDERED: ONDANSETRON 4 MG/2 ML VIAL ONE (04:30)
[2018-05-31 04:34] LABS: BASO % 0.3 % (0-2.0); EOS % 0.9 % (0-4.5); HEMATOCRIT 42.2 % (32.4-45.2); HEMOGLOBIN 14.4 GM/dL (10.7-15.3); MCH 31.4 pg (25.7-33.7); MCHC 34.1 g/dl (32.0-36.0); MEAN CELL VOLUME 92.2 fl (80-96); MEAN PLT VOLUME 7.2 fl (7.5-11.1); MONO % 7.9 % (3.8-10.2); NEUT % 73.9 % (42.8-82.8); PLATELET COUNT 168 K/MM3 (134-434); RBC 4.58 M/mm3 (3.60-5.2); RDW 12.9 % (11.6-15.6); WHITE BLOOD COUNT 7.2 K/mm3 (4.0-10.0)
[2018-05-31 04:47] LABS: INR 1.05 (0.83-1.09); PROTHROMBIN TIME (PATIENT) 12.4 SEC (9.7-13.0)
[2018-05-31 04:49] LABS: ACTIVATED PTT 30.2 SECONDS (25.2-36.5)
[2018-05-31 04:58] LABS: ALBUMIN 4.2 g/dl (3.4-5.0); ALK PHOS 73 U/L (45-117); ANION GAP 8 MMOL/L (8-16); BILIRUBIN,TOTAL 0.7 mg/dL (0.2-1); BLOOD UREA NITROGEN 22 mg/dL (7-18); CALCIUM 9.5 mg/dL (8.5-10.1); CHLORIDE 104 mmol/L (98-107); CO2 26 mmol/L (21-32); CREATININE 0.9 mg/dL (0.55-1.3); GLUCOSE,RANDOM 124 mg/dL (74-106); LIPASE 48 U/L (73-393); MAGNESIUM 2.3 mg/dL (1.8-2.4); PHOSPHOROUS 3.1 mg/dL (2.5-4.9); POTASSIUM 4.5 mmol/L (3.5-5.1); SGOT/AST 22 U/L (15-37); SGPT/ALT 19 U/L (13-61); SODIUM 138 mmol/L (136-145); TOT PROT 7.6 g/dl (6.4-8.2)
--- NOTE | 2018-05-31 05:27 | PDOC ---
Attending Attestation - Resident Resident Name: Herminia Merino - ED Attending Attestation I have performed the following: I have examined & evaluated the patient, The case was reviewed & discussed with the resident, I agree w/resident's findings & plan, Exceptions are as noted - HPI HPI: 05/31/18 05:24 82yo F hx "intestinal twisting" s/p surgery 2007, colon ca s/p R hemicoloectomy , HTN, HL, CAD s/p stent 2017 presents with lower abd pain since yesterday morning a/w nausea, but no vomiting. Describes pain in band like distribution from LLQ to RLQ. Pain comes and goes and lasts a few seconds, then dissipates. Nothing makes pain better or worse. Last BM today was normal, with no blood. No fevers, chills, vomiting, urinary sxs. Denies headache, weakness/numbness, cp, sob, palpitations, dizziness. No treatments tried. +dysuria. - Physicial Exam PE: 05/31/18 05:59 GENERAL: Awake, alert, and fully oriented, in no acute distress EYES: Sclera anicteric, conjunctiva clear ENT: Oropharynx clear without exudates. Moist mucosa NECK: Normal ROM, supple, no lymphadenopathy, JVD, or masses LUNGS: Breath sounds equal, clear to auscultation bilaterally. No wheezes, and no crackles HEART: Regular rate and rhythm, normal S1 and S2, no murmurs, rubs or gallops ABDOMEN: Soft, with diffuse voluntary guarding. No distention. TTP along the lower abdomen, especially over the suprapubic area EXTREMITIES: Normal range of motion, no edema. NNo cords, erythema, or tenderness NEUROLOGICAL: Normal speech, cranial nerves intact, 5/5 strength in all 4 extremities, normal sensation to light touch in all 4 extremities SKIN: Abdominal midline vertical scar clean/dry/intact. Otherwise skin is warm, Dry, normal turgor, no rashes or lesions noted. - Medical Decision Making 05/31/18 06:09 82yo F hx colon ca s/p resection, obstruction s/p surgical intervention p/w lower abd pain and nausea. Vitals unremarkable. Exam with voluntary guarding, non focal lower abd ttp. DDx includes but not limited to obstruction vs appendicitis vs UTI vs colitis vs diverticulitis. 10/23/18 06:42 CTAP reveals SBO surgery c/s sent out will admit NPO IVF Heart Score/ECG Review #1 05/31/18 06:06 Twelve-lead EKG was performed and reviewed by me. Sinus rhythm, rate 82. Normal axis. No ST elevations. Q waves in anterior and inferior leads. Compared to EKG from 11/2016, there is resolution of diffuse WANDA's
--- NOTE | 2018-05-31 07:23 | PDOC ---
*Physical Exam - Vital Signs Last Vital Signs Temp Pulse Resp BP Pulse Ox 97.5 F L 77 20 148/95 99 05/31/18 02:40 05/31/18 07:04 05/31/18 07:04 05/31/18 07:04 05/31/18 07:04 - Physical Exam Comments: 05/31/18 07:29 GENERAL: Awake, alert, and fully oriented, in no acute distress HEAD: No signs of trauma, normocephalic, atraumatic EYES: EOMI, sclera anicteric, conjunctiva clear ENT: oropharynx clear without exudates. Moist mucosa NECK: Normal ROM, supple LUNGS: No distress, speaks full sentences, clear to auscultation bilaterally HEART: Regular rate and rhythm, normal S1 and S2, no murmurs, rubs or gallops, peripheral pulses normal and equal bilaterally. ABDOMEN: Soft, RLQ tenderness, hypoactive bowel sounds, normoactive bowel sounds. No guarding, no rebound. No masses EXTREMITIES : Normal inspection, Normal range of motion, no edema. No clubbing or cyanosis. NEUROLOGICAL: Cranial nerves II through XII grossly intact. Normal speech, no focal sensorimotor deficits SKIN: Warm, Dry, normal turgor, no rashes or lesions noted ED Treatment Course - LABORATORY CBC & Chemistry Diagram: 05/31/18 04:16 05/31/18 04:16 - ADDITIONAL ORDERS Additional order review: Laboratory Results 05/31/18 05/31/18 05/31/18 04:16 04:16 04:16 PT with INR INR PTT (Actin FS) Sodium 138 Potassium 4.5 Chloride 104 Carbon Dioxide 26 Anion Gap 8 BUN 22 H Creatinine 0.9 Creat Clearance w eGFR 59.94 Random Glucose 124 H Lactic Acid 2.5 H* Calcium 9.5 Phosphorus 3.1 Magnesium 2.3 Total Bilirubin 0.7 AST 22 ALT 19 Alkaline Phosphatase 73 Troponin I < 0.02 Total Protein 7.6 Albumin 4.2 Lipase 48 L Urine Color Urine Appearance Urine pH Ur Specific [place] Urine Protein Urine Glucose (UA) Urine Ketones Urine Blood Urine Nitrite Urine Bilirubin Urine Urobilinogen Ur Leukocyte Esterase Urine WBC (Auto) Urine RBC (Auto) Ur Epithelial Cells Urine Bacteria Urine Mucus Blood Type O POSITIVE Antibody Screen Negative 05/31/18 05/31/18 04:16 03:12 PT with INR 12.40 INR 1.05 PTT (Actin FS) 30.2 Sodium Potassium Chloride Carbon Dioxide Anion Gap BUN Creatinine Creat Clearance w eGFR Random Glucose Lactic Acid Calcium Phosphorus Magnesium Total Bilirubin AST ALT Alkaline Phosphatase Troponin I Total Protein Albumin Lipase Urine Color Yellow Urine Appearance Clear Urine pH 8.0 Ur Specific [place] 1.013 Urine Protein Negative Urine Glucose (UA) Negative Urine Ketones Negative Urine Blood Negative Urine Nitrite Negative Urine Bilirubin Negative Urine Urobilinogen Negative Ur Leukocyte Esterase 2+ H Urine WBC (Auto) 16 Urine RBC (Auto) 4 Ur Epithelial Cells Rare Urine Bacteria Few Urine Mucus Rare Blood Type Antibody Screen 05/31/18 04:16 RBC 4.58 MCV 92.2 MCHC 34.1 RDW 12.9 MPV 7.2 L Neutrophils % 73.9 D Lymphocytes % 17.0 D Monocytes % 7.9 Eosinophils % 0.9 Basophils % 0.3 - Medications Given in the ED: ED Medications Discontinued Medications Generic Name Dose Route Start Last Admin Trade Name Freq PRN Reason Stop Dose Admin Sodium Chloride 1,000 mls @ 1,000 mls/hr 05/31/18 04:12 05/31/18 04:34 Normal Saline - IV 05/31/18 05:11 1,000 mls/hr ASDIR STA Administration Morphine Sulfate 4 mg 05/31/18 04:12 05/31/18 04:34 Morphine Injection - IVPUSH 05/31/18 04:13 4 mg ONCE ONE Administration Ondansetron HCl 4 mg 05/31/18 04:29 05/31/18 04:34 Zofran Injection IVPUSH 05/31/18 04:30 4 mg ONCE ONE Administration Medical Decision Making - Medical Decision Making 05/31/18 07:23 Pt signed out by Dr. Merino. In short this is a patient with a history of colon CA (s/p hemicolectomy), HTN, HLD, cardiac stent (2017), and possible SBO who presents with lower abdominal pain since 0 yesterday. Pain is intermittent associated with nausea and wakes her up from sleep. Patient has had 5 prior abdominal surgeries and is passing flatus. ED Course: Surgery paged. Pending call back. 05/31/18 07:36 Dr. Woods (surgery) contacted. Will come see patient. 05/31/18 10:13 Patient feels somewhat improved, still complains of abdominal pain. 05/31/18 10:[address]: R sided partial SBO, cholelithiasis. Medicine team contacted. Pending admission. *DC/Admit/Observation/Transfer Diagnosis at time of Disposition: SBO (small bowel obstruction) - Discharge Dispostion Condition at time of disposition: Stable - Referrals Referrals: Panda Dubois MD [Primary Care Provider] - - Patient Instructions - Post Discharge Activity
[2018-05-31] MEDS: SODIUM CHLORIDE 1,000 ML IV SCH (08:40)
[2018-05-31 08:50] LABS: INR 1.08 (0.83-1.09); PROTHROMBIN TIME (PATIENT) 12.8 SEC (9.7-13.0)
[2018-05-31 08:53] LABS: ACTIVATED PTT 31.7 SECONDS (25.2-36.5)
--- NOTE | 2018-05-31 10:00 | CON.CARD ---
Consult Consult Specialty:: Cardiology Referred by:: Pepe Reason for Consultation:: CAD - History of Present Illness Chief Complaint: abd pain History of Present Illness: 82M h/o colon CA s/p hemicolectomy, HTN, HLD, CAD s/p stent 2017, pericarditis, prior abd surgeries p/w abd pain, nausea. CT abd showed SBO. trop neg x 1. Pain started a couple of days ago and had been getting worse, improved now. Prior to coming to ER no chest pain, dyspnea, palps, dizziness, lightheadedness. Walks often and does work around the house including climbing up and down two flights of stairs a few times a day to do laundry. Sees Dr. Araya in clinic. - History Source History Provided By: Patient Limitations to Obtaining History: No Limitations - Past Medical History Cardio/Vascular: Yes: HTN, Hyperlipdemia Gastrointestinal: Yes: Cancer (Hx of colon CA) ...: No Psych: Yes: Depression Endocrine: Yes: Hyperthyroidism - Past Surgical History Past Surgical History: Yes: Colectomy - Alcohol/Substance Use Hx Alcohol Use: No - Smoking History Smoking history: Never smoked Have you smoked in the past 12 months: No Aproximately how many cigarettes per day: 0 Home Medications - Allergies Allergies/Adverse Reactions: Allergies Allergy/AdvReac Type Severity Reaction Status Date / Time No Known Allergies Allergy Verified 05/31/18 03:10 - Home Medications Home Medications: Ambulatory Orders Amlodipine Besylate [Norvasc -] 2.5 mg PO DAILY 12/13/13 Calcium Carbonate [Calcium] 600 mg PO BID 12/13/13 Escitalopram Oxalate [Lexapro -] 10 mg PO HS #0 12/16/13 Pitavastatin Calcium [Livalo] 1 mg PO DAILY 02/07/14 [place]-3 Fatty Acids [[place]-3] 1,830 mg PO DAILY 02/08/14 Multivit-Min/FA/Lycopen/Lutein [Centrum Silver Tablet] 1 each PO DAILY 04/14/16 Aspirin Coated [Ecotrin -] 81 mg PO DAILY #30 tablet.ec 04/15/16 Diphenhydramine HCl [Benadryl -] 25 mg PO Q8H PRN #21 capsule 05/01/17 Famotidine [Pepcid -] 20 mg PO BID #20 tablet 05/01/17 Family Disease History - Family Disease History Family History: Unremarkable Review of Systems - Review of Systems Constitutional: reports: No Symptoms Eyes: reports: No Symptoms HENT: reports: No Symptoms Neck: reports: No Symptoms Cardiovascular: reports: No Symptoms Respiratory: reports: No Symptoms Gastrointestinal: reports: Abdominal Pain Genitourinary: reports: No Symptoms Integumentary: reports: No Symptoms Neurological: reports: No Symptoms Endocrine: reports: No Symptoms Hematology/Lymphatic: reports: No Symptoms Psychiatric: reports: No Symptoms Vital Signs: Vital Signs Temperature 98.2 F 05/31/18 07:38 Pulse Rate 77 05/31/18 07:04 Respiratory Rate 20 05/31/18 07:04 Blood Pressure 148/95 05/31/18 07:04 O2 Sat by Pulse Oximetry (%) 98 05/31/18 07:29 Constitutional: Yes: No Distress, Calm Eyes: Yes: Conjunctiva Clear, EOM Intact HENT: Yes: Atraumatic, Normocephalic Neck: Yes: Supple, Trachea Midline Respiratory: Yes: Regular, CTA Bilaterally Gastrointestinal: Yes: Normal Bowel Sounds, Soft, Tenderness Renal/: Yes: WNL Cardiovascular: Yes: Regular Rate and Rhythm JVD: No Carotid Bruit: No PMI: Non-Displaced Heart Sounds: Yes: S1, S2 Musculoskeletal: No: Muscle Weakness Extremities: No: Cyanosis Edema: No Peripheral Pulses WNL: Yes Peripheral Pulses: 2+ Left Doralis Pedis, 2+ Right Dorsalis Pedis Integumentary: No: Jaundice Neurological: Yes: Alert, Oriented ...Motor Strength: WNL Psychiatric: Yes: Alert, Oriented - Other Data Labs, Other Data: CBC, BMP 05/31/18 04:16 05/31/18 04:16 INR, PTT INR 1.08 (0.83-1.09) 05/31/18 07:48 Troponin, BNP 05/31/18 04:16 Troponin I < 0.02 Troponin, BNP 05/31/18 04:16 Troponin I < 0.02 Assessment/Plan [facility] 11/23: 70-80% mRCA--Xience; 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 Normal BP response. No chest pain. No STs. MIBI 08/23: 4:24min; no ischemia or scar; nl EF Echo 12/24: 1. The left ventricular size is normal. 2. Overall left ventricular systolic function is normal with, an EF between 65 - 70 %. 3. LA pressure is uncertain. 4. The right ventricle is normal in size and function. 5. Left atrium is normal size by volume. 6. The aortic valve was not well visualized; leaflets are heavily thickened/ calcified with at least moderately reduced mobility. 7. There is mild aortic regurgitation. 8. Moderate to severe aortic stenosis with peak/mean pressure gradient of 45 / 27 mmHg, and aortic valve area by continuity equation of 0.9 cm2. (SV index = 47 cm/m2.) 9. The ascending aorta is mildly dilated measuring up to 3.8 cm within visualized portions. 82M h/o colon CA s/p hemicolectomy, HTN, HLD, CAD s/p stent 2017, pericarditis, prior abd surgeries p/w abd pain, nausea, partial SBO Abd pain, partial SBO - surgery consulted - patient is stable from cardiac perspective, may proceed with surgery if necessary without further cardiac workup CAD - s/p MERI to mRCA 11/2016 - stable, asymptomatic - continue aspirin, statin; intolerant to bb, REYNALDO, ARB h/o pericarditis with transient pAfib - afib noted <48 hours in hospital with acute pericarditis 2017, not on AC due to reversible cause - most recent echo 12/2017 no effusion - no chest pain aneurysm ascending aorta - stable, outpatient monitoring aortic stenosis - moderate to severe on echo 12/2017, stable HLD - not on statin due to fatigue, stopped livalo 3 weeks ago and feels better HTN - stable, h/o white coat hypertension - continue amlodipine
[2018-05-31] MEDS ORDERED: MORPHINE SULFATE 2 MG/ML VIAL IVPUSH PRN (11:19)
[2018-05-31] MEDS ORDERED: ONDANSETRON 4 MG/2 ML VIAL IVPUSH PRN (11:19)
--- NOTE | 2018-05-31 11:29 | HP ---
Admitting History and Physical - Primary Care Physician PCP: Panda Dubois - Admission Chief Complaint: I have pain in my belly History of Present Illness: Ms Randhawa is a very pleasant 82 year old female who comes in with abdominal pain. She has a history of surgery and bowel obstruction with her last one occurring 10 years prior requiring lysis of adhesions. After that she has been on miralax and has multiple small bowel movements daily. She says that has not changed and her last bowel movement was early this morning. She was doing well yesterday and tolerating her diet, however around 11pm she started to develop abdominal pain. She says at first it was in her RLQ but when she turned it shifted to her LLQ. She says as the night went on the pain became a ring around her abdomen. It is a crampy like pain and at its worst it was 10/10. She says the pain came and went but does not know what exacerbated it or caused relief, even though she says she had some chamomile tea last night and it may have made it worse. Because of the pain she came in, she received morphine and now she says she is feeling better but is tired. She denies fevers, chills, lightheadedness, dizziness, passing out, chest pain or pressure, shortness of breath, nausea, vomiting, difficulty or pain on urination, or leg swelling. History Source: Patient Limitations to Obtaining History: No Limitations - Past Medical History Cardiovascular: Yes: HTN, Hyperlipdemia Gastrointestinal: Yes: Cancer (Hx of colon CA) ...: No Psych: Yes: Depression Endocrine: Yes: Hyperthyroidism - Past Surgical History Past Surgical History: Yes: Colectomy - Smoking History Smoking history: Never smoked Have you smoked in the past 12 months: No Aproximately how many cigarettes per day: 0 - Alcohol/Substance Use Hx Alcohol Use: No History of Substance Use: reports: None - Social History ADL: Independent History of Recent Travel: No Home Medications - Allergies Allergies/Adverse Reactions: Allergies Allergy/AdvReac Type Severity Reaction Status Date / Time No Known Allergies Allergy Verified 05/31/18 03:10 - Home Medications Home Medications: Ambulatory Orders Amlodipine Besylate [Norvasc -] 2.5 mg PO DAILY 12/13/13 Calcium Carbonate [Calcium] 600 mg PO BID 12/13/13 Escitalopram Oxalate [Lexapro -] 10 mg PO HS #0 12/16/13 Pitavastatin Calcium [Livalo] 1 mg PO DAILY 02/07/14 [place]-3 Fatty Acids [[place]-3] 1,830 mg PO DAILY 02/08/14 Multivit-Min/FA/Lycopen/Lutein [Centrum Silver Tablet] 1 each PO DAILY 04/14/16 Aspirin Coated [Ecotrin -] 81 mg PO DAILY #30 tablet.ec 04/15/16 Diphenhydramine HCl [Benadryl -] 25 mg PO Q8H PRN #21 capsule 05/01/17 Famotidine [Pepcid -] 20 mg PO BID #20 tablet 05/01/17 Family Disease History - Family Disease History Family Disease History: Heart Disease: Father, Other: Mother (old age) Review of Systems Findings/Remarks: Full review of systems obtained, as per HPI and otherwise negative Physical Examination Vital Signs: Vital Signs Temperature 36.8 C 05/31/18 07:38 Pulse Rate 77 05/31/18 07:04 Respiratory Rate 20 05/31/18 07:04 Blood Pressure 148/95 05/31/18 07:04 O2 Sat by Pulse Oximetry (%) 98 05/31/18 07:29 Constitutional: Yes: Well Nourished, No Distress, Calm Eyes: Yes: Conjunctiva Clear, EOM Intact, PERRL HENT: Yes: Atraumatic, Normocephalic Cardiovascular: Yes: Regular Rate and Rhythm. No: Gallop, Murmur, Rub Respiratory: Yes: Regular, CTA Bilaterally. No: Rales, Rhonchi, Wheezes Gastrointestinal: Yes: Normal Bowel Sounds, Soft, Tenderness. No: Distention, Tenderness, Rebound Extremities: Yes: WNL Edema: No Labs: CBC, BMP 05/31/18 04:16 05/31/18 04:16 Imaging - Results Cat Scan: Report Reviewed, Image Reviewed Problem List - Problems (1) SBO (small bowel obstruction) Assessment/Plan: -patient with bowel sounds -general surgery consult -npo -IVF -pain control -monitor for flatus and bm -advance diet when stable from surgical standpoint Code(s): K56.69 - OTHER INTESTINAL OBSTRUCTION * DO NOT USE * (2) CAD (coronary artery disease) Assessment/Plan: -quiescent -case d/w cardiology -cleared for surgery if needed Code(s): I25.10 - ATHSCL HEART DISEASE OF [place] CORONARY ARTERY W/O ANG PCTRS (3) Depression Assessment/Plan: -can hold lexapro while npo Code(s): F32.9 - MAJOR DEPRESSIVE DISORDER, SINGLE EPISODE, UNSPECIFIED (4) HTN (hypertension) Assessment/Plan: -hold norvasc at this time Code(s): I10 - ESSENTIAL (PRIMARY) HYPERTENSION (5) Hyperlipidemia Assessment/Plan: -patient on lipitor now per Dr Dubois -can hold while npo -restart on discharge Code(s): E78.5 - HYPERLIPIDEMIA, UNSPECIFIED
[2018-05-31] MEDS ORDERED: SODIUM CHLORIDE 1,000 ML IV SCH (11:30)
--- NOTE | 2018-05-31 12:49 | EKG ---
Test Reason : Blood Pressure : / mmHG Vent. Rate : 082 BPM Atrial Rate : 082 BPM P-R Int : 214 ms QRS Dur : 090 ms QT Int : 394 ms P-R-T Axes : 044 -03 053 degrees QTc Int : 460 ms SINUS RHYTHM WITH 1ST DEGREE A-V BLOCK POSSIBLE INFERIOR INFARCT , AGE UNDETERMINED ANTERIOR INFARCT (CITED ON OR BEFORE 03-NOV-2011) ABNORMAL ECG Confirmed by MD REBA, DUTCH ([id number]) on 05/31/2018 12:49:03 PM Referred By: Confirmed By:DUTCH BRITTON MD
--- NOTE | 2018-05-31 15:08 | CONSULT ---
Consult Consult Specialty:: General Surgery Reason for Consultation:: SBO - History of Present Illness Chief Complaint: abdominal pain History of Present Illness: 82 yo female PMH Colon cancer, s/p primary resection and and bowel obstruction with her last one occurring 10 years prior requiring lysis of adhesions. After that she has been on miralax and has multiple small bowel movements daily. She says that has not changed and her last bowel movement was early this morning. She was doing well yesterday and tolerating her diet, however around 11pm she started to develop abdominal pain. She says at first it was in her RLQ but when she turned it shifted to her LLQ. She says as the night went on the pain became a ring around her abdomen. It is a crampy like pain and at its worst it was 10/ 10. She says the pain came and went but does not know what exacerbated it or caused relief, even though she says she had some chamomile tea last night and it may have made it worse. Because of the pain she came in, she received morphine and now she says she is feeling better but is tired. She denies fevers , chills, lightheadedness, dizziness, passing out, chest pain or pressure, shortness of breath, nausea, vomiting, difficulty or pain on urination, or leg swelling. We were called to assess based on CT scan findings. - History Source History Provided By: Patient, Medical Record Limitations to Obtaining History: No Limitations - Past Medical History Cardio/Vascular: Yes: HTN, Hyperlipdemia Gastrointestinal: Yes: Cancer (Hx of colon CA) ...: No Psych: Yes: Depression Endocrine: Yes: Hyperthyroidism - Past Surgical History Past Surgical History: Yes: Colectomy - Alcohol/Substance Use Hx Alcohol Use: No History of Substance Use: reports: None - Smoking History Smoking history: Never smoked Have you smoked in the past 12 months: No Aproximately how many cigarettes per day: 0 - Social History ADL: Independent History of Recent Travel: No Home Medications - Allergies Allergies/Adverse Reactions: Allergies Allergy/AdvReac Type Severity Reaction Status Date / Time No Known Allergies Allergy Verified 05/31/18 03:10 - Home Medications Home Medications: Ambulatory Orders Amlodipine Besylate [Norvasc -] 2.5 mg PO DAILY 12/13/13 Calcium Carbonate [Calcium] 600 mg PO BID 12/13/13 Escitalopram Oxalate [Lexapro -] 10 mg PO HS #0 12/16/13 Pitavastatin Calcium [Livalo] 1 mg PO DAILY 02/07/14 [place]-3 Fatty Acids [[place]-3] 1,830 mg PO DAILY 02/08/14 Multivit-Min/FA/Lycopen/Lutein [Centrum Silver Tablet] 1 each PO DAILY 04/14/16 Aspirin Coated [Ecotrin -] 81 mg PO DAILY #30 tablet.ec 04/15/16 Diphenhydramine HCl [Benadryl -] 25 mg PO Q8H PRN #21 capsule 05/01/17 Famotidine [Pepcid -] 20 mg PO BID #20 tablet 05/01/17 Family Disease History - Family Disease History Family Disease History: Heart Disease: Father, Other: Mother (old age) Review of Systems - Review of Systems Constitutional: denies: Chills, Fever Eyes: denies: Blind Spots, Recent Change in Vision HENT: denies: Difficult Swallowing, Throat Pain Neck: denies: Decreased ROM, Pain on Movement, Tenderness Cardiovascular: denies: Chest Pain, Palpitations Respiratory: denies: Cough, SOB Gastrointestinal: reports: Abdominal Pain, Bloating. denies: Constipation, Diarrhea Genitourinary: denies: Discharge, Dysuria Musculoskeletal: denies: Muscle Pain, Muscle Weakness Integumentary: denies: Erythema, Lesions, Rash Neurological: denies: Seizure, Syncope Endocrine: denies: Unexplained Weight Gain, Unexplained Weight Loss Hematology/Lymphatic: denies: Easily Bruised, Excessive Bleeding Psychiatric: denies: Anxiety, Depression Physical Exam Vital Signs: Vital Signs Temperature 98.7 F 05/31/18 12:47 Pulse Rate 74 05/31/18 12:47 Respiratory Rate 18 05/31/18 12:47 Blood Pressure 128/65 05/31/18 12:47 O2 Sat by Pulse Oximetry (%) 96 05/31/18 12:47 Vital Signs Period Temp Pulse Resp BP Sys/Martin Pulse Ox Last 24 Hr 97.4 F-98.4 F 57-72 18-22 122-145/51-80 95 Constitutional: Yes: No Distress, Calm, Thin Eyes: Yes: Conjunctiva Clear, EOM Intact HENT: Yes: Atraumatic, Normocephalic Neck: Yes: Supple, Trachea Midline Cardiovascular: Yes: Regular Rate and Rhythm, S1, S2 Respiratory: Yes: Regular, CTA Bilaterally Gastrointestinal: Yes: Normal Bowel Sounds, Soft. No: Distention, Tenderness, Tenderness, Epigastrium, Tenderness, Rebound ...Rectal Exam: Yes: Sphincter Tone Normal. No: Hemorrhoids/External, Mass Renal/: No: CVA Tenderness - Left, CVA Tenderness - Right Extremities: No: Cool, Cyanosis Edema: No Peripheral Pulses WNL: No Integumentary: No: Incision, Jaundice, Laceration Neurological: Yes: Alert, Oriented Psychiatric: Yes: Alert, Oriented Labs: CBC, BMP 05/31/18 04:16 05/31/18 04:16 Imaging - Results Cat Scan: Report Reviewed, Image Reviewed (CT scan with SBO pattern) Problem List - Problems (1) SBO (small bowel obstruction) Assessment/Plan: 82yo female MMP with a history of multiple abdominal surgeries. She is having BM and flatus. No signs of peritonitis, no indication for acute surgical intervention. Advance diet as tolerated NGT decompression as needed repeat abdominal xray discharge at the discretion of the primary team Thank you for the opportunity to participate in the care of this patient. Code(s): K56.69 - OTHER INTESTINAL OBSTRUCTION * DO NOT USE * (2) CAD (coronary artery disease) Code(s): I25.10 - ATHSCL HEART DISEASE OF [place] CORONARY ARTERY W/O ANG PCTRS (3) Depression Code(s): F32.9 - MAJOR DEPRESSIVE DISORDER, SINGLE EPISODE, UNSPECIFIED (4) HTN (hypertension) Code(s): I10 - ESSENTIAL (PRIMARY) HYPERTENSION (5) Hyperlipidemia Code(s): E78.5 - HYPERLIPIDEMIA, UNSPECIFIED (6) Hyperthyroidism Code(s): E05.90 - THYROTOXICOSIS, UNSP WITHOUT THYROTOXIC CRISIS OR STORM
[2018-06-01 08:00] LABS: BASO % 0.4 % (0-2.0); EOS % 2.6 % (0-4.5); HEMATOCRIT 39.1 % (32.4-45.2); LYMPH % 25.4 % (8-40); MCH 30.7 pg (25.7-33.7); MCHC 33.1 g/dl (32.0-36.0); MEAN CELL VOLUME 92.7 fl (80-96); MEAN PLT VOLUME 6.9 fl (7.5-11.1); MONO % 9.3 % (3.8-10.2); NEUT % 62.3 % (42.8-82.8); PLATELET COUNT 120 K/MM3 (134-434); RBC 4.22 M/mm3 (3.60-5.2); RDW 12.9 % (11.6-15.6); WHITE BLOOD COUNT 3.3 K/mm3 (4.0-10.0)
[2018-06-01 08:24] LABS: ANION GAP 7 MMOL/L (8-16); BLOOD UREA NITROGEN 13 mg/dL (7-18); CALCIUM 8.3 mg/dL (8.5-10.1); CHLORIDE 107 mmol/L (98-107); CO2 27 mmol/L (21-32); CREATININE 0.8 mg/dL (0.55-1.3); GLUCOSE,RANDOM 82 mg/dL (74-106); MAGNESIUM 2.3 mg/dL (1.8-2.4); POTASSIUM 3.9 mmol/L (3.5-5.1); SODIUM 142 mmol/L (136-145)
[2018-06-01] MEDS: SODIUM CHLORIDE 1,000 ML IV SCH (10:19)
[2018-06-01] MEDS: ENOXAPARIN NA (PORCINE) 40 MG/0.4 ML DISP.SYRIN SQ SCH (10:20)
--- NOTE | 2018-06-01 11:41 | PN ---
Progress Note, Physician Chief Complaint: Ms Randhawa says the pain is resolved but her stomach is still sore. She says she is beginning to feel hungry. Not recorded but she states she had a bowel movement. Denies cp, sob, n/v. - Current Medication List Current Medications: Active Medications Enoxaparin Sodium (Lovenox -) 40 mg SQ DAILY [facility] Last Admin: 06/01/18 10:20 Dose: 40 mg Sodium Chloride (Normal Saline -) 1,000 mls @ 0 mls/hr IV ASDIR [facility] Last Admin: 06/01/18 10:19 Dose: Not Given Morphine Sulfate (Morphine Sulfate) 1 mg IVPUSH Q4H PRN PRN Reason: PAIN LEVEL 6-10 Ondansetron HCl (Zofran Injection) 4 mg IVPUSH Q6H PRN PRN Reason: NAUSEA - Objective Vital Signs: Vital Signs Temperature 36.7 C 06/01/18 10:00 Pulse Rate 72 06/01/18 10:00 Respiratory Rate 20 06/01/18 10:00 Blood Pressure 132/80 06/01/18 10:00 O2 Sat by Pulse Oximetry (%) 93 L 05/31/18 21:00 Constitutional: Yes: Well Nourished, No Distress, Calm Cardiovascular: Yes: Regular Rate and Rhythm. No: Gallop, Murmur, Rub Respiratory: Yes: Regular, CTA Bilaterally. No: Rales, Rhonchi, Wheezes Gastrointestinal: Yes: Normal Bowel Sounds, Soft, Tenderness (slight). No: Distention Extremities: Yes: WNL Edema: No Labs: CBC, BMP 06/01/18 07:30 06/01/18 07:30 INR, PTT INR 1.08 (0.83-1.09) 05/31/18 07:48 Problem List - Problems (1) SBO (small bowel obstruction) Code(s): K56.69 - OTHER INTESTINAL OBSTRUCTION * DO NOT USE * (2) CAD (coronary artery disease) Code(s): I25.10 - ATHSCL HEART DISEASE OF [place] CORONARY ARTERY W/O ANG PCTRS (3) Depression Code(s): F32.9 - MAJOR DEPRESSIVE DISORDER, SINGLE EPISODE, UNSPECIFIED (4) HTN (hypertension) Code(s): I10 - ESSENTIAL (PRIMARY) HYPERTENSION (5) Hyperlipidemia Code(s): E78.5 - HYPERLIPIDEMIA, UNSPECIFIED Assessment/Plan (1) SBO (small bowel obstruction) Assessment/Plan: -patient improving -will trial clear liquid diet -general surgery following Code(s): K56.69 - OTHER INTESTINAL OBSTRUCTION * DO NOT USE * (2) CAD (coronary artery disease) Assessment/Plan: -quiescent -doubt will need surgery Code(s): I25.10 - ATHSCL HEART DISEASE OF [place] CORONARY ARTERY W/O ANG PCTRS (3) Depression Assessment/Plan: -ok to hold lexapro -restart when on a solid diet Code(s): F32.9 - MAJOR DEPRESSIVE DISORDER, SINGLE EPISODE, UNSPECIFIED (4) HTN (hypertension) Assessment/Plan: -ok to hold norvasc -restart when on a solid diet Code(s): I10 - ESSENTIAL (PRIMARY) HYPERTENSION (5) Hyperlipidemia Assessment/Plan: -patient on lipitor now per Dr Dubois -can hold while npo -restart on discharge Code(s): E78.5 - HYPERLIPIDEMIA, UNSPECIFIED
--- NOTE | 2018-06-01 16:35 | PN ---
Progress Note (short form) - Note Progress Note: s: no cp sob palps dizzy o: Vital Signs Period Temp Pulse Resp BP Sys/Martin Pulse Ox Last 24 Hr 97.4 F-99.1 F 65-72 20-22 116-145/58-80 93-95 Constitutional: Yes: No Distress, Calm Eyes: Yes: Conjunctiva Clear HENT: Yes: Atraumatic, Normocephalic Respiratory: Yes: Regular, CTA Bilaterally Gastrointestinal: Yes: Normal Bowel Sounds, Soft, Tenderness Cardiovascular: Yes: Regular Rate and Rhythm JVD: No Heart Sounds: Yes: S1, S2 Musculoskeletal: No: Muscle Weakness Extremities: No: Cyanosis Edema: No Peripheral Pulses: 2+ Left Doralis Pedis, 2+ Right Dorsalis Pedis Integumentary: No: Jaundice Psychiatric: Yes: Alert, Oriented Current Medications Generic Name Dose Route Start Last Admin Trade Name Freq PRN Reason Stop Dose Admin Enoxaparin Sodium 40 mg 06/01/18 10:00 06/01/18 10:20 Lovenox - SQ 40 mg DAILY KEVIN Administration Sodium Chloride 1,000 mls @ 0 mls/hr 05/31/18 08:15 06/01/18 10:19 Normal Saline - IV Not Given ASDIR KEVIN Wide Open Morphine Sulfate 1 mg 05/31/18 11:19 Morphine Sulfate IVPU SH Q4H PRN PAIN LEVEL 6-10 Ondansetron HCl 4 mg 05/31/18 11:19 Zofran Injection IVPUSH Q6H PRN NAUSEA CBC, BMP 06/01/18 07:30 06/01/18 07:30 Assessment/Plan [facility] 11/23: 70-80% mRCA--Xience; 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 Normal BP response. No chest pain. No STs. MIBI 08/23: 4:24min; no ischemia or scar; nl EF Echo 12/24: 1. The left ventricular size is normal. 2. Overall left ventricular systolic function is normal with, an EF between 65 - 70 %. 3. LA pressure is uncertain. 4. The right ventricle is normal in size and function. 5. Left atrium is normal size by volume. 6. The aortic valve was not well visualized; leaflets are heavily thickened/ calcified with at least moderately reduced mobility. 7. There is mild aortic regurgitation. 8. Moderate to severe aortic stenosis with peak/mean pressure gradient of 45 / 27 mmHg, and aortic valve area by continuity equation of 0.9 cm2. (SV index = 47 cm/m2.) 9. The ascending aorta is mildly dilated measuring up to 3.8 cm within visualized portions. 82M h/o colon CA s/p hemicolectomy, HTN, HLD, CAD s/p stent 2017, pericarditis, prior abd surgeries p/w abd pain, nausea, partial SBO Abd pain, partial SBO - surgery following - sxs improving - patient is stable from cardiac perspective, may proceed with surgery if necessary without further cardiac workup CAD - s/p MERI to mRCA 11/2016 - stable, asymptomatic - continue aspirin, statin; intolerant to bb, REYNALDO, ARB h/o pericarditis with transient pAfib - afib noted <48 hours in hospital with acute pericarditis 2017, not on AC due to reversible cause - most recent echo 12/2017 no effusion - no chest pain aneurysm ascending aorta - stable, outpatient monitoring aortic stenosis - moderate to severe on echo 12/2017, stable HLD - not on statin due to fatigue, stopped livalo 3 weeks ago and feels better HTN - stable, h/o white coat hypertension - continue amlodipine
[2018-06-01 20:21] LABS: URINE APPEARANCE CLEAR; URINE BILIRUBIN NEGATIVE (<2.0 mg/dL); URINE COLOR STRAW; URINE GLUCOSE (UA) NEGATIVE (NEGATIVE); URINE KETONE NEGATIVE (NEGATIVE); URINE LEUK ESTERASE NEGATIVE (NEGATIVE); URINE NITRITE NEGATIVE (NEGATIVE); URINE PROTEIN NEGATIVE (NEGATIVE); URINE UROBILINOGEN NEGATIVE mg/dL (0.2-1.0)
[2018-06-02 08:28] LABS: BASO % 0.3 % (0-2.0); EOS % 3.1 % (0-4.5); HEMATOCRIT 38.2 % (32.4-45.2); HEMOGLOBIN 12.9 GM/dL (10.7-15.3); LYMPH % 29.5 % (8-40); MCH 31.4 pg (25.7-33.7); MCHC 33.8 g/dl (32.0-36.0); MEAN CELL VOLUME 92.9 fl (80-96); MONO % 10.4 % (3.8-10.2); NEUT % 56.7 % (42.8-82.8); PLATELET COUNT 127 K/MM3 (134-434); RBC 4.11 M/mm3 (3.60-5.2); RDW 12.8 % (11.6-15.6); WHITE BLOOD COUNT 2.6 K/mm3 (4.0-10.0)
[2018-06-02 09:09] LABS: ANION GAP 6 MMOL/L (8-16); BLOOD UREA NITROGEN 9 mg/dL (7-18); CALCIUM 8.6 mg/dL (8.5-10.1); CHLORIDE 108 mmol/L (98-107); CO2 29 mmol/L (21-32); CREATININE 0.7 mg/dL (0.55-1.3); GLUCOSE,RANDOM 95 mg/dL (74-106); MAGNESIUM 2.4 mg/dL (1.8-2.4); PHOSPHOROUS 3.3 mg/dL (2.5-4.9); POTASSIUM 3.8 mmol/L (3.5-5.1); SODIUM 143 mmol/L (136-145)
[2018-06-02] MEDS: ENOXAPARIN NA (PORCINE) 40 MG/0.4 ML DISP.SYRIN SQ SCH (09:14)
--- NOTE | 2018-06-02 12:11 | PN ---
Progress Note, Physician Chief Complaint: Ms Randhawa says she is feeling better, wants a regular diet. No cp, sob, n/v. - Current Medication List Current Medications: Active Medications Enoxaparin Sodium (Lovenox -) 40 mg SQ DAILY KEVIN Last Admin: 06/02/18 09:14 Dose: 40 mg Morphine Sulfate (Morphine Sulfate) 1 mg IVPUSH Q4H PRN PRN Reason: PAIN LEVEL 6-10 Ondansetron HCl (Zofran Injection) 4 mg IVPUSH Q6H PRN PRN Reason: NAUSEA - Objective Vital Signs: Vital Signs Temperature 36.6 C 06/02/18 09:43 Pulse Rate 78 06/02/18 09:43 Respiratory Rate 18 06/02/18 09:43 Blood Pressure 133/77 06/02/18 09:43 O2 Sat by Pulse Oximetry (%) 95 06/01/18 21:00 Constitutional: Yes: Well Nourished, No Distress, Calm Cardiovascular: Yes: Regular Rate and Rhythm. No: Gallop, Murmur, Rub Respiratory: Yes: Regular, CTA Bilaterally. No: Rales, Rhonchi, Wheezes Gastrointestinal: Yes: Normal Bowel Sounds, Soft. No: Distention, Tenderness Extremities: Yes: WNL Edema: No Labs: CBC, BMP 06/02/18 06:00 06/02/18 06:00 INR, PTT INR 1.08 (0.83-1.09) 05/31/18 07:48 Problem List - Problems (1) SBO (small bowel obstruction) Code(s): K56.69 - OTHER INTESTINAL OBSTRUCTION * DO NOT USE * (2) CAD (coronary artery disease) Code(s): I25.10 - ATHSCL HEART DISEASE OF [place] CORONARY ARTERY W/O ANG PCTRS (3) Depression Code(s): F32.9 - MAJOR DEPRESSIVE DISORDER, SINGLE EPISODE, UNSPECIFIED (4) HTN (hypertension) Code(s): I10 - ESSENTIAL (PRIMARY) HYPERTENSION (5) Hyperlipidemia Code(s): E78.5 - HYPERLIPIDEMIA, UNSPECIFIED (6) Lactic acidosis Code(s): E87.2 - ACIDOSIS Assessment/Plan (1) SBO (small bowel obstruction) Assessment/Plan: -resolved -will place on regular diet -if tolerates, discharge tomorrow Code(s): K56.69 - OTHER INTESTINAL OBSTRUCTION * DO NOT USE * (2) CAD (coronary artery disease) Assessment/Plan: -quiescent -appreciate cardiology assistance Code(s): I25.10 - ATHSCL HEART DISEASE OF [place] CORONARY ARTERY W/O ANG PCTRS (3) Depression Assessment/Plan: -holding lexapro -restart tomorrow if tolerates diet Code(s): F32.9 - MAJOR DEPRESSIVE DISORDER, SINGLE EPISODE, UNSPECIFIED (4) HTN (hypertension) Assessment/Plan: -blood pressure controlled Code(s): I10 - ESSENTIAL (PRIMARY) HYPERTENSION (5) Hyperlipidemia Assessment/Plan: -patient on lipitor now per Dr Dubois -can hold while npo -restart on discharge Code(s): E78.5 - HYPERLIPIDEMIA, UNSPECIFIED
[2018-06-02 15:53] VITALS: BMI 26.6
--- NOTE | 2018-06-02 16:12 | PN ---
Progress Note (short form) - Note Progress Note: Progress Note: s: no cp sob palps dizzy. able to tolerate drinking, abd pain better o: Vital Signs Period Temp Pulse Resp BP Sys/Martin Pulse Ox Last 24 Hr 97.8 F-98.5 F 53-78 18-20 122-138/51-77 95-96 Constitutional: Yes: No Distress, Calm Eyes: Yes: Conjunctiva Clear HENT: Yes: Atraumatic, Normocephalic Respiratory: Yes: Regular, CTA Bilaterally Gastrointestinal: Yes: Normal Bowel Sounds, Soft, Tenderness Cardiovascular: Yes: Regular Rate and Rhythm JVD: No Heart Sounds: Yes: S1, S2 Musculoskeletal: No: Muscle Weakness Extremities: No: Cyanosis Edema: No Peripheral Pulses: 2+ Left Doralis Pedis, 2+ Right Dorsalis Pedis Integumentary: No: Jaundice Psychiatric: Yes: Alert, Oriented Current Medications Enoxaparin Sodium (Lovenox -) 40 mg SQ DAILY KEVIN Last Admin: 06/02/18 09:14 Dose: 40 mg Morphine Sulfate (Morphine Sulfate) 1 mg IVPUSH Q4H PRN PRN Reason: PAIN LEVEL 6-10 Ondansetron HCl (Zofran Injection) 4 mg IVPUSH Q6H PRN PRN Reason: NAUSEA Assessment/Plan LHC 11/23: 70-80% mRCA--Xience; BAIL ATTACHER of AV continuation branch; 30-50% mLAD, <30% D1; EDP 15, nl EF/no RWMAs; CCS 06/21: 1151, 94th %ile (fairly equal 3 vessel distribution); 4cm asc aorta ETT 01/24: 2:40 min-->modified due to leg weakness, total of 5:59 (4.6 METs). Normal BP response. No chest pain. No STs. MIBI 08/23: 4:24min; no ischemia or scar; nl EF Echo 12/24: 1. The left ventricular size is normal. 2. Overall left ventricular systolic function is normal with, an EF between 65 - 70 %. 3. LA pressure is uncertain. 4. The right ventricle is normal in size and function. 5. Left atrium is normal size by volume. 6. The aortic valve was not well visualized; leaflets are heavily thickened/ calcified with at least moderately reduced mobility. 7. There is mild aortic regurgitation. 8. Moderate to severe aortic stenosis with peak/mean pressure gradient of 45 / 27 mmHg, and aortic valve area by continuity equation of 0.9 cm2. (SV index = 47 cm/m2.) 9. The ascending aorta is mildly dilated measuring up to 3.8 cm within visualized portions. 82M h/o colon CA s/p hemicolectomy, HTN, HLD, CAD s/p stent 2017, pericarditis, prior abd surgeries p/w abd pain, nausea, partial SBO Abd pain, partial SBO - surgery following - sxs improving, unlikely to need surgical intervention - patient is stable from cardiac perspective, may proceed with surgery if necessary without further cardiac workup CAD - s/p MERI to mRCA 11/2016 - stable, asymptomatic - continue aspirin, statin; intolerant to bb, REYNALDO, ARB h/o pericarditis with transient pAfib - afib noted <48 hours in hospital with acute pericarditis 2017, not on AC due to reversible cause - most recent echo 12/2017 no effusion - no chest pain aneurysm ascending aorta - stable, outpatient monitoring aortic stenosis - moderate to severe on echo 12/2017, stable HLD - not on statin due to fatigue, stopped livalo 3 weeks ago and feels better HTN - stable, h/o white coat hypertension - continue amlodipine stable from cardiac perspective
[2018-06-03 07:26] VITALS: TEMP 98.2
[2018-06-03 08:17] LABS: BASO % 0.6 % (0-2.0); EOS % 3.1 % (0-4.5); HEMATOCRIT 38.6 % (32.4-45.2); HEMOGLOBIN 13.1 GM/dL (10.7-15.3); LYMPH % 33.1 % (8-40); MCH 31.9 pg (25.7-33.7); MEAN CELL VOLUME 93.9 fl (80-96); MEAN PLT VOLUME 7.1 fl (7.5-11.1); MONO % 10.4 % (3.8-10.2); NEUT % 52.8 % (42.8-82.8); PLATELET COUNT 133 K/MM3 (134-434); RBC 4.11 M/mm3 (3.60-5.2); RDW 12.8 % (11.6-15.6); WHITE BLOOD COUNT 2.9 K/mm3 (4.0-10.0)
[2018-06-03 08:31] LABS: ANION GAP 7 MMOL/L (8-16); BLOOD UREA NITROGEN 14 mg/dL (7-18); CALCIUM 8.4 mg/dL (8.5-10.1); CHLORIDE 107 mmol/L (98-107); CO2 28 mmol/L (21-32); CREATININE 0.7 mg/dL (0.55-1.3); GLUCOSE,RANDOM 97 mg/dL (74-106); MAGNESIUM 2.2 mg/dL (1.8-2.4); PHOSPHOROUS 3.5 mg/dL (2.5-4.9); POTASSIUM 3.8 mmol/L (3.5-5.1); SODIUM 141 mmol/L (136-145)
[2018-06-03] MEDS: ENOXAPARIN NA (PORCINE) 40 MG/0.4 ML DISP.SYRIN SQ SCH (09:18)
[2018-06-03 10:05] VITALS: BP 146/76; PULSE 64
--- NOTE | 2018-06-03 12:08 | DS ---
Physical Examination Vital Signs: Vital Signs Temperature 36.8 C 06/03/18 10:03 Pulse Rate 64 06/03/18 10:03 Respiratory Rate 18 06/03/18 10:03 Blood Pressure 146/76 06/03/18 10:03 O2 Sat by Pulse Oximetry (%) 96 06/03/18 09:00 Constitutional: Yes: Well Nourished, No Distress, Calm Cardiovascular: Yes: Regular Rate and Rhythm. No: Gallop, Murmur, Rub Respiratory: Yes: Regular, CTA Bilaterally. No: Rales, Rhonchi, Wheezes Gastrointestinal: Yes: Normal Bowel Sounds, Soft. No: Distention, Tenderness Extremities: Yes: WNL Edema: No Labs: CBC, BMP 06/03/18 07:00 06/03/18 07:00 Discharge Summary Reason For Visit: SMALL BOWEL OBSTRUCTION Current Active Problems CAD (coronary artery disease) (Acute) Lactic acidosis (Acute) SBO (small bowel obstruction) (Acute) Hospital Course: (1) SBO (small bowel obstruction) Code(s): K56.69 - OTHER INTESTINAL OBSTRUCTION * DO NOT USE * (2) CAD (coronary artery disease) Code(s): I25.10 - ATHSCL HEART DISEASE OF [place] CORONARY ARTERY W/O ANG PCTRS (3) Depression Code(s): F32.9 - MAJOR DEPRESSIVE DISORDER, SINGLE EPISODE, UNSPECIFIED (4) HTN (hypertension) Code(s): I10 - ESSENTIAL (PRIMARY) HYPERTENSION (5) Hyperlipidemia Code(s): E78.5 - HYPERLIPIDEMIA, UNSPECIFIED (6) Lactic acidosis Code(s): E87.2 - ACIDOSIS Ms Randhawa is a very pleasant 82 year old female who comes in with partial small bowel obstruction. She was found to have lactic acidosis that resolved with IVF. She was admitted to the hospital and seen by general surgery. She did not require intervention. She was originally made npo and within 24 hours she had flatus and bowel sounds. She was increased to a clear liquid diet which she tolerated well. She was successfully transitioned to a regular diet without problems. She is currently 24 hours eating solid food and obstruction has not recurred. She had questions about her medications and these were answered. She is currently safe for discharge home. 32 minutes spent in preparation of this discharge Condition: Good - Instructions Diet, Activity, Other Instructions: resume previous diet and activity. resume lipitor and synthroid at previous dose. Referrals: Kiel Araya MD [Staff Physician] - Panda Dubois MD [Primary Care Provider] - 1 Week Disposition: HOME - Home Medications Comprehensive Discharge Medication List: Ambulatory Orders Amlodipine Besylate [Norvasc -] 2.5 mg PO DAILY 12/13/13 Calcium Carbonate [Calcium] 600 mg PO BID 12/13/13 Escitalopram Oxalate [Lexapro -] 10 mg PO HS #0 12/16/13 [place]-3 Fatty Acids [[place]int-3] 1,830 mg PO DAILY 02/08/14 Multivit-Min/FA/Lycopen/Lutein [Centrum Silver Tablet] 1 each PO DAILY 04/14/16 Aspirin Coated [Ecotrin -] 81 mg PO DAILY #30 tablet.ec 04/15/16 Famotidine [Pepcid -] 20 mg PO BID #20 tablet 05/01/17
== END 2018-06-03 12:57 | disposition home or self-care (01) | DRG 389 ==
LOC: JER 02:38 → JERBED 07:07 → J5S 13:37
PROVIDERS: ADMIT Internal Medicine; ATTEND Internal Medicine
DX: K56.609 Unspecified intestinal obstruction, unspecified as to partial versus complete obstruction (principal); E87.2 Acidosis; C18.9 Malignant neoplasm of colon, unspecified; I25.10 Atherosclerotic heart disease of native coronary artery without angina pectoris; F32.9 Major depressive disorder, single episode, unspecified; I10 Essential (primary) hypertension; E78.5 Hyperlipidemia, unspecified; I35.0 Nonrheumatic aortic (valve) stenosis; Z98.61 Coronary angioplasty status; I71.2 Thoracic aortic aneurysm, without rupture
CPT/HCPCS: 36415; 74019-TC-FY; 74177-TC; 80048; 80053; 81003; 81015; 83605; 83690; 83735; 84100; 84484; 85025; 85610; 85730; 86850; 86900; 86901; 87086; 93005; 93010; 97116-GP; 97161-GP; 99285-25; J7030

== ENCOUNTER 2019-07-23 17:04 | Inpatient (IN) | payer OTHER, BC ==
--- NOTE | 2019-07-23 18:29 | PDOC ---
History of Present Illness <Shakila Mahajan - Last Filed: 07/23/19 22:58> - General History Source: Patient Exam Limitations: No Limitations - History of Present Illness Initial Comments: 07/23/19 21:59 83 yo F with a hx of HLD, colon CA (hx of right and left anastamosis with last surveillance 3 years ago which was within normal limits), appendectomy, hyperthyroidism, and CAD (s/p bovine AV replacement within the last year) presents to the emergency department with abdominal pain that began today in the afternoon. Per the patient, she states it is occurring throughout the abdomen most notably in the samuel-umbilical region and RLQ. The patient states she has associated chills. Her last BM was this morning and per the patient is still passing gas. She denies the following: fever, chest pain, nausea, vomiting , chest pain, shortness of breath, dysuria, hematuria, and leg pain/swelling. Per the patient, she had a similar episode in May 2018 that did not require surgical intervention. Allergies: NKDA <Ricardo Encinas - Last Filed: 07/26/19 09:54> - General Chief Complaint: Pain Stated Complaint: ABD PAIN Past History <Shakila Mahajan - Last Filed: 07/23/19 22:58> - Past Medical History Anemia: No Asthma: No Cancer: Yes (COLON CA X 2) Cardiac Disorders: Yes (CAD, Pericarditis, stable aortic aneurysm) CVA: No COPD: Yes CHF: No Dementia: No Diabetes: No GI Disorders: Yes (GERD, GASTRITIS, COLON POLYPS, GALLSTONE) Disorders: No HTN: Yes Hypercholesterolemia: Yes Liver Disease: No Seizures: No Thyroid Disease: Yes Other medical history: AORTIC VALVE REPLACEMENT - Surgical History Abdominal Surgery: Yes (INTESTINAL BLOCKAGE COLON TWISTED) Appendectomy: Yes Cardiac Surgery: No Cholecystectomy: No Lung Surgery: No Neurologic Surgery: No Orthopedic Surgery: No - Reproductive History Therapeutic (s) & number: No - Immunization History Immunization Up to Date: Yes - Psycho Social/Smoking Cessation Hx Smoking Status: No Smoking History: Never smoked Have you smoked in the past 12 months: No Number of Cigarettes Smoked Daily: 0 Hx Alcohol Use: No Drug/Substance Use Hx: No Substance Use Type: None Hx Substance Use Treatment: No <Ricardo Encinas - Last Filed: 07/26/19 09:54> - Past Medical History Allergies/Adverse Reactions: Allergies Allergy/AdvReac Type Severity Reaction Status Date / Time No Known Allergies Allergy Verified 07/23/19 17:09 Home Medications: Ambulatory Orders Amlodipine Besylate [Norvasc -] 2.5 mg PO DAILY 12/13/13 Escitalopram Oxalate [Lexapro -] 10 mg PO HS #0 12/16/13 Aspirin [Aspirin EC] 81 mg PO DAILY 07/24/19 Clopidogrel Bisulfate [Plavix] 75 mg PO DAILY 07/24/19 Methimazole 5 mg PO DAILY 07/24/19 Review of Systems - Review of Systems Able to Perform ROS?: Yes Is the patient limited Latvian proficient: No Constitutional: Yes: Chills. No: Diaphoresis, Fever, Weakness HEENTM: No: Eye Pain, Ear Pain, Nose Pain, Throat Pain, Mouth Pain Respiratory: No: Cough, Shortness of Breath, Hemoptysis Cardiac (ROS): No: Chest Pain, Lightheadedness, Palpitations, Chest Tightness ABD/GI: Yes: Abdominal cramping. No: Constipated, Diarrhea, Nausea, Rectal Bleeding, Vomiting, Tarry Stools : No: Burning, Dysuria, Hematuria Musculoskeletal: No: Back Pain, Joint Pain, Neck Pain Integumentary: No: Bruising, Erythema, Rash Neurological: No: Headache, Tremors, Ataxia Psychiatric: No: Change in Appetite Endocrine: No: Unexplained Weight Loss Hematologic/Lymphatic: No: Anemia <Ricardo Encinas - Last Filed: 07/26/19 09:54> *Physical Exam - Vital Signs Last Vital Signs Temp Pulse Resp BP Pulse Ox 97.5 F L 80 18 181/82 H 99 07/23/19 17:05 07/23/19 17:05 07/23/19 17:05 07/23/19 17:05 07/23/19 17:05 <Shakila Mahajan - Last Filed: 07/23/19 22:58> - Vital Signs Last Vital Signs Temp Pulse Resp BP Pulse Ox 97.5 F L 80 18 181/82 H 99 07/23/19 17:05 07/23/19 17:05 07/23/19 17:05 07/23/19 17:05 07/23/19 17:05 - Physical Exam General Appearance: Yes: Nourished, Appropriately Dressed. No: Apparent Distress, Intoxicated HEENT: positive: EOMI, STEPHEN, Normal Voice, Symmetrical, Pharynx Normal, Hearing Grossly Normal. negative: Pale Conjunctivae, Scleral Icterus (R), Scleral Icterus (L), Muffled/Hoarse voice, Pharyngeal Erythema, Tonsillar Exudate, Tonsillar Erythema, Nasal Congestion, Rhinorrhea, Sinus Tenderness, Excessive drooling Neck: positive: Trachea midline, Supple. negative: Tender, Lymphadenopathy (R) , Lymphadenopathy (L), Tender lateral, Tender midline Respiratory/Chest: positive: Lungs Clear, Normal Breath Sounds. negative: Chest Tender, Respiratory Distress, Accessory Muscle Use, Rhonchi, Stridor, Wheezing Cardiovascular: positive: Regular Rhythm, Regular Rate, S1, S2. negative: Systolic Murmur Gastrointestinal/Abdominal: positive: Normal Bowel Sounds, Tender (RLQ, periumbilical region), Flat, Soft. negative: Distended, Guarding, Rebound Lymphatic: negative: Adenopathy Musculoskeletal: positive: Normal Inspection. negative: CVA Tenderness, Vertebral Tenderness Extremity: positive: Normal Capillary Refill, Normal Inspection, Normal Range of Motion. negative: Tender Integumentary: positive: Normal Color, Dry, Warm. 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 NML intact, Fully Oriented, Alert, Normal Mood/ Affect <Ricardo Encinas - Last Filed: 07/26/19 09:54> ED Treatment Course - LABORATORY CBC & Chemistry Diagram: 07/23/19 19:10 07/23/19 19:10 - ADDITIONAL ORDERS Additional order review: Laboratory Results 07/23/19 07/23/19 07/23/19 19:10 19:10 19:10 PT with INR 12.10 INR 1.03 PTT (Actin FS) 34.1 Sodium Potassium Chloride Carbon Dioxide Anion Gap BUN Creatinine Est GFR (CKD-EPI)AfAm Est GFR (CKD-EPI)NonAf Random Glucose Lactic Acid Calcium Magnesium Total Bilirubin AST ALT Alkaline Phosphatase Creatine Kinase Troponin I Total Protein Albumin Urine Color Yellow Urine Appearance Clear Urine pH 8.5 H D Ur Specific [place] 1.006 L Urine Protein Negative Urine Glucose (UA) Negative Urine Ketones Negative Urine Blood Negative Urine Nitrite Negative Urine Bilirubin Negative Urine Urobilinogen 0.2 Ur Leukocyte Esterase 1+ H Urine WBC (Auto) 8 Urine RBC (Auto) 0 Urine Casts (Auto) 0 U Epithel Cells (Auto) 0.7 Urine Bacteria (Auto) 2.6 Blood Type O POSITIVE Antibody Screen Negative 07/23/19 07/23/19 07/23/19 19:10 19:10 19:10 PT with INR INR PTT (Actin FS) Sodium 139 Potassium 3.6 Chloride 101 Carbon Dioxide 30 Anion Gap 8 BUN 23.4 H Creatinine 1.1 Est GFR (CKD-EPI)AfAm 53.77 Est GFR (CKD-EPI)NonAf 46.39 Random Glucose 132 H Lactic Acid 1.9 Calcium 9.7 Magnesium 2.2 Total Bilirubin 0.6 AST 20 ALT 21 Alkaline Phosphatase 81 Creatine Kinase 62 Troponin I < 0.02 Total Protein 7.6 Albumin 4.4 Urine Color Urine Appearance Urine pH Ur Specific [place] Urine Protein Urine Glucose (UA) Urine Ketones Urine Blood Urine Nitrite Urine Bilirubin Urine Urobilinogen Ur Leukocyte Esterase Urine WBC (Auto) Urine RBC (Auto) Urine Casts (Auto) U Epithel Cells (Auto) Urine Bacteria (Auto) Blood Type Antibody Screen 07/23/19 19:10 RBC 4.41 MCV 92.3 MCHC 34.7 RDW 13.9 MPV 7.9 D Neutrophils % 74.2 D Lymphocytes % 16.7 D Monocytes % 7.5 Eosinophils % 1.3 Basophils % 0.3 - Medications Given in the ED: ED Medications Discontinued Medications Generic Name Dose Route Start Last Admin Trade Name Rockq PRN Reason Stop Dose Admin Acetaminophen 1,000 mg 07/23/19 18:50 07/23/19 20:19 Ofirmev Injection - IVPB 07/23/19 18:51 1,000 mg ONCE ONE Administration Ondansetron HCl 4 mg 07/23/19 18:50 07/23/19 20:19 Zofran Injection IVPUSH 07/23/19 18:51 4 mg ONCE ONE Administration <Shakila Mahajan - Last Filed: 07/23/19 22:58> - LABORATORY CBC & Chemistry Diagram: 07/25/19 07:07 07/26/19 07:45 <Ricardo Encinas - Last Filed: 07/26/19 09:54> Medical Decision Making - Medical Decision Making 83 yo F with a hx of HLD, colon CA (hx of right and left anastamosis with last surveillance 3 years ago which was within normal limits), appendectomy, hyperthyroidism, and CAD (s/p bovine AV replacement within the last year) presents to the emergency department with abdominal pain that began today in the afternoon. Initial vitals: Initial Vital Signs Temp Pulse Resp BP Pulse Ox 97.5 F L 80 18 181/82 H 99 07/23/19 17:05 07/23/19 17:05 07/23/19 17:05 07/23/19 17:05 07/23/19 17:05 Work up: suspect SBO. The patient is complaining of RLQ pain. unlikely to be appendicitis given surgical history but colitis in the differential. patient has a hx of colon cancer, thus possible recurrence of cancer. will obtain labs and abdomen and pelvis CT with oral and IV contrast Laboratory Tests 07/23/19 07/23/19 07/23/19 19:10 19:10 19:10 WBC 6.3 RBC 4.41 Hgb 14.1 Hct 40.7 MCV 92.3 MCH 32.0 MCHC 34.7 RDW 13.9 Plt Count 165 D MPV 7.9 D Absolute Neuts (auto) 4.7 Neutrophils % 74.2 D Lymphocytes % 16.7 D Monocytes % 7.5 Eosinophils % 1.3 Basophils % 0.3 Nucleated RBC % 0 PT with INR INR PTT (Actin FS) Sodium 139 Potassium 3.6 Chloride 101 Carbon Dioxide 30 Anion Gap 8 BUN 23.4 H Creatinine 1.1 Est GFR (CKD-EPI)AfAm 53.77 Est GFR (CKD-EPI)NonAf 46.39 Random Glucose 132 H Lactic Acid Calcium 9.7 Magnesium 2.2 Total Bilirubin 0.6 AST 20 ALT 21 Alkaline Phosphatase 81 Creatine Kinase 62 Troponin I < 0.02 Total Protein 7.6 Albumin 4.4 Urine Color Urine Appearance Urine pH Ur Specific [place] Urine Protein Urine Glucose (UA) Urine Ketones Urine Blood Urine Nitrite Urine Bilirubin Urine Urobilinogen Ur Leukocyte Esterase Urine WBC (Auto) Urine RBC (Auto) Urine Casts (Auto) U Epithel Cells (Auto) Urine Bacteria (Auto) Blood Type Antibody Screen 07/23/19 07/23/19 07/23/19 19:10 19:10 19:10 WBC RBC Hgb Hct MCV MCH MCHC RDW Plt Count MPV Absolute Neuts (auto) Neutrophils % Lymphocytes % Monocytes % Eosinophils % Basophils % Nucleated RBC % PT with INR 12.10 INR 1.03 PTT (Actin FS) 34.1 Sodium Potassium Chloride Carbon Dioxide Anion Gap BUN Creatinine Est GFR (CKD-EPI)AfAm Est GFR (CKD-EPI)NonAf Random Glucose Lactic Acid 1.9 Calcium Magnesium Total Bilirubin AST ALT Alkaline Phosphatase Creatine Kinase Troponin I Total Protein Albumin Urine Color Yellow Urine Appearance Clear Urine pH 8.5 H D Ur Specific [place] 1.006 L Urine Protein Negative Urine Glucose (UA) Negative Urine Ketones Negative Urine Blood Negative Urine Nitrite Negative Urine Bilirubin Negative Urine Urobilinogen 0.2 Ur Leukocyte Esterase 1+ H Urine WBC (Auto) 8 Urine RBC (Auto) 0 Urine Casts (Auto) 0 U Epithel Cells (Auto) 0.7 Urine Bacteria (Auto) 2.6 Blood Type Antibody Screen 07/23/19 19:10 WBC RBC Hgb Hct MCV MCH MCHC RDW Plt Count MPV Absolute Neuts (auto) Neutrophils % Lymphocytes % Monocytes % Eosinophils % Basophils % Nucleated RBC % PT with INR INR PTT (Actin FS) Sodium Potassium Chloride Carbon Dioxide Anion Gap BUN Creatinine Est GFR (CKD-EPI)AfAm Est GFR (CKD-EPI)NonAf Random Glucose Lactic Acid Calcium Magnesium Total Bilirubin AST ALT Alkaline Phosphatase Creatine Kinase Troponin I Total Protein Albumin Urine Color Urine Appearance Urine pH Ur Specific [place] Urine Protein Urine Glucose (UA) Urine Ketones Urine Blood Urine Nitrite Urine Bilirubin Urine Urobilinogen Ur Leukocyte Esterase Urine WBC (Auto) Urine RBC (Auto) Urine Casts (Auto) U Epithel Cells (Auto) Urine Bacteria (Auto) Blood Type O POSITIVE Antibody Screen Negative lactic acid negative no leukocytosis Abdomen and pelvis CT shows partial obstruction within the right to mid lower abdomen. distended thick walled SB loop. Possibly IBD vs post op adhesions. Patient was started on a NG tube and maintenance fluids Dr. Guzman was consulted and the patient was endorsed to hospitalist for partial SBO. <Ricardo Encinas - Last Filed: 07/26/19 09:54> Discharge - Discharge Information Problems reviewed: Yes - Admission Yes <Shakila Mahajan - Last Filed: 07/23/19 22:58> - Discharge Information Problems reviewed: Yes <Ricardo Encinas - Last Filed: 07/26/19 09:54> - Discharge Information Clinical Impression/Diagnosis: SBO (small bowel obstruction) Condition: Guarded
[2019-07-23] MEDS ORDERED: ONDANSETRON 4 MG/2 ML VIAL IVPUSH ONE (18:50)
[2019-07-23] MEDS ORDERED: ACETAMINOPHEN 1000 MG/100 ML VIAL (NON FORMULARY) IVPB ONE (18:50)
[2019-07-23 19:21] LABS: BASO % 0.3 % (0-2.0); EOS % 1.3 % (0-4.5); HEMATOCRIT 40.7 % (32.4-45.2); HEMOGLOBIN 14.1 GM/dL (10.7-15.3); LYMPH % 16.7 % (8-40); MCHC 34.7 g/dl (32.0-36.0); MEAN CELL VOLUME 92.3 fl (80-96); MEAN PLT VOLUME 7.9 fl (7.5-11.1); MONO % 7.5 % (3.8-10.2); NEUT % 74.2 % (42.8-82.8); PLATELET COUNT 165 K/MM3 (134-434); RBC 4.41 M/mm3 (3.60-5.2); RDW 13.9 % (11.6-15.6); WHITE BLOOD COUNT 6.3 K/mm3 (4.0-10.0)
[2019-07-23 19:24] LABS: EPI CELLS 0.7 /HPF (0-5/HPF); HYALINE CASTS 0 /lpf (0-8); PH,URINE 8.5 (5.0-8.0); URINE APPEARANCE CLEAR; URINE BACTERIA 2.6 /hpf (NEGATIVE); URINE BILIRUBIN NEGATIVE (NEGATIVE); URINE COLOR YELLOW; URINE GLUCOSE (UA) NEGATIVE (NEGATIVE); URINE KETONE NEGATIVE (NEGATIVE); URINE LEUK ESTERASE 1+ (NEGATIVE); URINE NITRITE NEGATIVE (NEGATIVE); URINE PROTEIN NEGATIVE (NEGATIVE); URINE RBC 0 /hpf (0-4); URINE UROBILINOGEN 0.2 mg/dL (0.2-1.0); URINE WBC 8 /hpf (0-5)
[2019-07-23 19:36] LABS: INR 1.03 (0.83-1.09); PROTHROMBIN TIME (PATIENT) 12.1 SEC (9.7-13.0)
[2019-07-23 19:38] LABS: ACTIVATED PTT 34.1 SECONDS (25.2-36.5)
[2019-07-23 19:51] LABS: ALBUMIN 4.4 g/dl (3.4-5.0); BILIRUBIN,TOTAL 0.6 mg/dL (0.2-1); BLOOD UREA NITROGEN 23.4 mg/dL (7-18); CALCIUM 9.7 mg/dL (8.5-10.1); CREATININE 1.1 mg/dL (0.55-1.3); MAGNESIUM 2.2 mg/dL (1.8-2.4); POTASSIUM 3.6 mmol/L (3.5-5.1); TOT PROT 7.6 g/dl (6.4-8.2)
--- NOTE | 2019-07-23 19:55 | PDOC ---
Attending Attestation - Resident Resident Name: Ricardo Encinas - ED Attending Attestation I have performed the following: I have examined & evaluated the patient, The case was reviewed & discussed with the resident, I agree w/resident's findings & plan - HPI HPI: 07/23/19 19:56 Pt comes with abdominal pain that began earlier in the day. She has been having bowel movements that are sparse and thin diameter (which is her usual - pt is overdue tor a colonoscopy, which had been put on hold for her aortic valve repair) Pt states that the pain is diffuse and that she feels burning in the central abdomen and that she has bloating now. Afebrile. - Physicial Exam PE: 07/23/19 23:59 Agree with resident exam. Pt has gassy distended abdomen with increased bowel sounds. She has no flank pain. Afebrile otherwise well appearing A+Ox3 answering quesitons no pitting edema Neuro intact - Medical Decision Making 07/23/19 21:55 Labs are normal; Pt is prerenal and slightly dehydrated. She has clear urine. Pt is afebrile. CT scan result is pending. 07/23/19 22:11 Patient Name: SHIN LIN THIS IS A PRELIMINARY REPORT FROM [facility] EXAM: CT Abdomen \T\ Pelvis w IMAGES: [id number] EXAM DATE AND TIME: 2019-07-23 20:29:01 HISTORY: 83 year old woman: Right lower quadrant pain. COMPARISON: None. TECHNIQUE: CT Abdomen \T\ Pelvis with I.V. and oral contrast: Post contrast axial images were obtained following the administration of i.v. iodinated contrast. Coronal and sagittal images were also generated. FINDINGS: The patient has undergone a partial colectomy in the past, with resection of the ascending and proximal transverse colonic segments. Colonic anastomoses are noted at the distal descending colon and distal transverse colonic segments. Multiple small bowel loops have shifted into the right paracolic gutter. There is extensive mucosal wall thickening within these segments of small bowel in the right lower quadrant, suggesting inflammatory bowel disease. Best appreciated on the coronal images. There are infiltrative inflammatory changes in the surrounding mesenteric adipose tissues and ascites fluid extending up to the mesenteric root. Proximal to these inflamed loops, there is dilatation of the contrast opacified small bowel suggesting a partial obstruction. There is no evidence of free air. The lung bases are otherwise clear without evidence of infiltrate, pleural effusion or pulmonary nodule. There is a moderate cardiomegaly. There is an aortic valve prosthesis. The lower thoracic and abdominal aorta, and the iliac arteries, exhibit scattered calcified atherosclerotic mural plaques but otherwise are normal in diameter and wall thickness, without evidence of aneurysm or dissection. Multiple calcified gallstones are noted within the contracted gallbladder. The liver, portal vein, common bile duct, pancreatic tissues, spleen, adrenal glands, kidneys, the ureters and urinary bladder appear unremarkable. Patient has undergone a hysterectomy in the past. No evidence of abdominal or pelvic adenopathy. Osseous structures exhibit grossly normal mineralization without evidence of lytic or sclerotic lesions. The thoracic and lumbar vertebral body heights and alignments are maintained. IMPRESSION: Partial colectomy in the past, with resection of the ascending and proximal transverse colonic segments. Colonic anastomoses are noted at the distal descending colon and distal transverse colonic segments. Multiple small bowel loops have shifted into the right paracolic gutter. Extensive mucosal wall thickening within these segments of small bowel in the right lower quadrant, suggesting inflammatory bowel disease, best appreciated on the coronal images. Infiltrative inflammatory changes in the surrounding mesenteric adipose tissues and ascites fluid extending up to the mesenteric root. Proximal to these inflamed loops, there is dilatation of the contrast opacified small bowel suggesting a partial obstruction. No evidence of free air. Multiple calcified gallstones are noted within the contracted gallbladder. Hysterectomy in the past. Aortic valve prosthesis. Moderate cardiomegaly 07/23/19 22:11 Gen surg is aware of the patient; they will see her in the AM 07/23/19 22:58 Pt has been seen and accepted by the hospitalists. 07/24/19 00:00 Procedures - NG Lavage NG Lavage: negative (NGT to suction with lavage; food removed)
[2019-07-23] MEDS ORDERED: ONDANSETRON 4 MG/2 ML VIAL ONE ×2 (20:06→20:08)
[2019-07-23] MEDS ORDERED: ACETAMINOPHEN INJECTION 100 ML IVPB ONE (20:06)
[2019-07-23] MEDS ORDERED: SODIUM CHLORIDE 0.9% 500 ML INFUS.BAG IV ONE (21:38)
[2019-07-23] MEDS ORDERED: SODIUM CHLORIDE 500 ML IV STA (22:23)
[2019-07-23] MEDS ORDERED: SODIUM CHLORIDE 1,000 ML IV SCH (22:30)
[2019-07-23] MEDS ORDERED: LIDOCAINE VISCOUS 2% ORAL/TOP 100 ML BOTTLE MM ONE (22:32)
[2019-07-23] MEDS ORDERED: LIDOCAINE VISCOUS 2% ORAL/TOP 20 ML UNIT-DOSE CUP ONE (22:45)
[2019-07-23] MEDS ORDERED: morphine CARPU-JECT 2 MG/1 ML DISP.SYRIN IVPUSH ONE (23:31)
[2019-07-23] MEDS ORDERED: MORPHINE SULFATE 2 MG/ML VIAL ONE (23:32)
--- NOTE | 2019-07-23 23:34 | HP ---
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 Pt notes its associated with chills and feeling of being bloated. She passed flatus yesterday. She admits to having thin calibur stool 2X/day and that has not changed even during this episode. Denies fever, nausea, vomiting, cp, sob, back pain, bowel/bladder complaints. She had a similar episode in requiring IVF but no NG tube or surgery. Pt had a partial colon resection 10 yrs ago. No IBS/IBD hx. She normally gets a colonoscopy yearly however the last one was delayed due to aortic valve replacement and AC requirements after. Once pt is off the asa and plavix, she will undergo colonoscopy. ER course was notable for: (1) UA- pH 8.5, Sp [place]- 1.006, NG tube placed draining bilious thick fluid (2) IVNS 105mL/hr and morphine 2mg, tylenol (3) CT abd pelvis- s/p partial colectomy, dilation of contrast opacified Recent Travel: denies PAST MEDICAL HISTORY: PAST SURGICAL HISTORY: appendectomy, hysertectomy, not including other surgeries in HPI. Social History: Smoking:denies Alcohol:denies Drugs: denies Allergies No Known Allergies Allergy (Verified 07/23/19 17:09) HOME MEDICATIONS: Home Medications Medication Instructions Recorded Amlodipine Besylate [Norvasc -] 2.5 mg PO DAILY 12/13/13 Calcium Carbonate [Calcium] 600 mg PO BID 12/13/13 Escitalopram Oxalate [Lexapro -] 10 mg PO HS #0 12/16/13 [place]-3 Fatty Acids [[place]-3] 1,830 mg PO DAILY 02/08/14 Multivit-Min/FA/Lycopen/Lutein 1 each PO DAILY 04/14/16 [Centrum Silver Tablet] Aspirin Coated [Ecotrin -] 81 mg PO DAILY #30 tablet.ec 04/15/16 Famotidine [Pepcid -] 20 mg PO BID #20 tablet 05/01/17 REVIEW OF SYSTEMS CONSTITUTIONAL: Negative except per HPI PHYSICAL EXAMINATION Vital Signs - 24 hr 07/23/19 17:05 Temperature 97.5 F L Pulse Rate 80 Respiratory 18 Rate Blood Pressure 181/82 H O2 Sat by Pulse 99 Oximetry (%) GENERAL: Awake, alert, and fully oriented, in no acute distress. LUNGS: Breath sounds equal, clear to auscultation bilaterally. No wheezes, and no crackles. No accessory muscle use. HEART: Regular rate and rhythm, normal S1 and S2 without murmur, rub or gallop. ABDOMEN: Soft, mild ttp in mid to lower epigastrium, not distended, hyperactive bowel sounds, minimal guarding, no rebound, no masses. LOWER EXTREMITIES: 2+ pulses, warm, well-perfused. No calf tenderness. No peripheral edema. Laboratory Results - last 24 hr 07/23/19 07/23/19 07/23/19 19:10 19:10 19:10 WBC RBC Hgb Hct MCV MCH MCHC RDW Plt Count MPV Absolute Neuts (auto) Neutrophils % Lymphocytes % Monocytes % Eosinophils % Basophils % Nucleated RBC % PT with INR 12.10 INR 1.03 PTT (Actin FS) 34.1 Sodium Potassium Chloride Carbon Dioxide Anion Gap BUN Creatinine Est GFR (CKD-EPI)AfAm Est GFR (CKD-EPI)NonAf Random Glucose Lactic Acid 1.9 Calcium Magnesium Total Bilirubin AST ALT Alkaline Phosphatase Creatine Kinase Troponin I Total Protein Albumin Urine Color Yellow Urine Appearance Clear Urine pH 8.5 H D Ur Specific [place] 1.006 L Urine Protein Negative Urine Glucose (UA) Negative Urine Ketones Negative Urine Blood Negative Urine Nitrite Negative Urine Bilirubin Negative Urine Urobilinogen 0.2 Ur Leukocyte Esterase 1+ H Urine WBC (Auto) 8 Urine RBC (Auto) 0 Urine Casts (Auto) 0 U Epithel Cells (Auto) 0.7 Urine Bacteria (Auto) 2.6 Blood Type Antibody Screen Images: CT abd pelvis: s/p resection of the ascending and proximal transverse colonic segments. Colonic anastomoses are noted at the distal descending colon and distal transverse colonic segments. Multiple small bowel loops have shifted into the right paracolic gutter. Extensive mucosal wall thickening within these segments of small bowel in the right lower quadrant, suggesting inflammatory bowel disease, best appreciated on the coronal images. Infiltrative inflammatory changes in the surrounding mesenteric adipose tissues and ascites fluid extending up to the mesenteric root. Proximal to these inflamed loops, there is dilatation of the contrast opacified small bowel suggesting a partial obstruction. No evidence of free air. Multiple calcified gallstones are noted within the contracted gallbladder. Moderate cardiomegaly ASSESSMENT/PLAN: This is a 83 y/o F with a PMHx of 2 episodes of colon CA (hx of right and left anastamosis with last surveillance 2 yrs ago which was within normal limits), hyperthyroidism, and CAD (s/p bovine AV replacement within the last year) presents to the emergency department with mid to lower 10/10 sharp abdominal pain that began this afternoon. #Partial SBO - CT abd pelvis: partial SBO, without free air. - likely 2/2 adhesions - Surgery (Dr. Guzman) consulted for possible lysis of adhesions vs medical management recs. - IVLR 100cc/hr - keep NPO - Morphine for pain - Tylenol for temps >100.4 - NG tube set to suction - draining bilious fluid #HTN - Hold oral antihypertensives at this time #Hyperthyroidism - TSH pending - hold methimazole at this time DVT ppx: Heparin 5K TID Visit type - Emergency Visit Emergency Visit: Yes ED Registration Date: 07/23/19 Care time: The patient presented to the Emergency Department on the above date and was hospitalized for further evaluation of their emergent condition. - New Patient This patient is new to me today: Yes Date on this admission: 07/24/19 - Critical Care Critical Care patient: No ATTENDING PHYSICIAN STATEMENT I saw and evaluated the patient. I reviewed the resident's note and discussed the case with the resident. I agree with the resident's findings and plan as documented. SUBJECTIVE: OBJECTIVE: ASSESSMENT AND PLAN:
--- NOTE | 2019-07-24 00:47 | PN ---
Teaching Attending Note Name of Resident: Kendrick Bond ATTENDING PHYSICIAN STATEMENT I saw and evaluated the patient. I reviewed the resident's note and discussed the case with the resident. I agree with the resident's findings and plan as documented. SUBJECTIVE: 83yo F h/o colon CA s/p hemicolectomy, HTN, HLD, CAD s/p stent 2017, pericarditis, prior abd surgeries presenting complaining of abdominal pain X1 day. Patient has been having bowel movements which are thin and sparse in diameter however this is believed to be her baseline. She was found to have positive bowel sounds in all 4 quadrants on exam. OBJECTIVE: Last Vital Signs Temp Pulse Resp BP Pulse Ox 97.5 F L 80 18 181/82 H 99 07/23/19 17:05 07/23/19 17:05 07/23/19 17:05 07/23/19 17:05 07/23/19 17:05 GENERAL: Well developed, well nourished. Awake and alert. No acute distress. HEENT: Normocephalic, atraumatic. PERRLA, EOMI. No conjunctival pallor. Sclera are non- icteric. Moist mucous membranes. Oropharynx is clear.NG tube in place NECK: Supple. Full ROM. No JVD. Carotid pulses 2+ and symmetric, without bruits. No thyromegaly. No lymphadenopathy. CARDIOVASCULAR: Regular rate and rhythm. No murmurs, rubs, or gallops. Distal pulses are 2+ and symmetric. PULMONARY: No evidence of respiratory distress. Lungs clear to auscultation bilaterally. No wheezing, rales or rhonchi. ABDOMINAL: Soft. Non-tender. Non-distended. No rebound or guarding. No organomegaly. Normoactive bowel sounds. MUSCULOSKELETAL Normal range of motion at all joints. No bony deformities or tenderness. No CVA tenderness. EXTREMITIES: No cyanosis. No clubbing. No edema. No calf tenderness. SKIN: Warm and dry. Normal capillary refill. No rashes. No jaundice. PSYCHIATRIC: Cooperative. Good eye contact. Appropriate mood and affect. Abnormal Lab Results 07/23/19 07/23/19 19:10 19:10 BUN 23.4 H Random Glucose 132 H Urine pH 8.5 H D Ur Specific [place] 1.006 L Ur Leukocyte Esterase 1+ H Imaging studies reviewed CT of abdomen pelvis with IV and oral contrast reviewed. Patient has undergone a partial colectomy in the past, with resection of the ascending and proximal transverse colonic segments. Colonic anastomosis are noted in the distal descending colon and distal transverse colonic segments. There is extensive mucosal wall thickening within the segments of small bowel in the right lower quadrant, suggesting inflammatory bowel disease. Proximal to these inflamed loops, there is a dilated [place] of the contrast opacified small bowel suggesting a partial obstruction. ASSESSMENT AND PLAN: 83-year-old woman status post multiple abdominal surgeries and partial colectomy presented with abdominal pain with CT of abdomen pelvis suggesting possible partial small bowel obstruction. However, patient is having positive bowel sounds in 4 quadrants and passing stool so clinically does not appear so. Surgery was consulted from the emergency room for evaluation. Admit to [facility] Surgery consult Pain control Check electrolytes and replete PRN IV fluid hydration NG tube with intermittent suction Avoid any agents which would slow bowel motility DVT prophylaxis with heparin subcutaneously
[2019-07-24] MEDS ORDERED: HEPARIN NA (PORCINE) 5,000 UNITS/ML 1ML VIAL ONE (02:07)
[2019-07-24] MEDS: HEPARIN NA (PORCINE) 5,000 UNITS/ML 1ML VIAL SQ SCH ×4 (02:14→22:45)
[2019-07-24] MEDS: LACTATED RINGERS SOLUTION 1,000 ML/1,000 ML INFUS.BAG IV SCH (04:03)
[2019-07-24 04:32] VITALS: BMI 27.4
[2019-07-24 08:14] LABS: ALBUMIN 3.5 g/dl (3.4-5.0); BILIRUBIN,TOTAL 0.8 mg/dL (0.2-1); BLOOD UREA NITROGEN 21.5 mg/dL (7-18); CALCIUM 8.4 mg/dL (8.5-10.1); MAGNESIUM 2.1 mg/dL (1.8-2.4); PHOSPHOROUS 4.2 mg/dL (2.5-4.9); POTASSIUM 3.9 mmol/L (3.5-5.1); TOT PROT 6.7 g/dl (6.4-8.2)
[2019-07-24 08:28] LABS: BASO % 0.4 % (0-2.0); EOS % 1.1 % (0-4.5); HEMATOCRIT 37.7 % (32.4-45.2); LYMPH % 21.6 % (8-40); MCH 32.2 pg (25.7-33.7); MCHC 34.5 g/dl (32.0-36.0); MEAN CELL VOLUME 93.5 fl (80-96); MEAN PLT VOLUME 7.6 fl (7.5-11.1); MONO % 9.9 % (3.8-10.2); PLATELET COUNT 155 K/MM3 (134-434); RBC 4.04 M/mm3 (3.60-5.2); RDW 14.2 % (11.6-15.6); WHITE BLOOD COUNT 5.3 K/mm3 (4.0-10.0)
[2019-07-24] MEDS ORDERED: PT OWN MED DRAWER 7, Y5N ONE (12:23)
--- NOTE | 2019-07-24 15:01 | PN ---
Physical Exam: SUBJECTIVE: Patient seen and examined. States her pain has improved considerably since yesterday. She still endorses some tenderness in the RLQ with deep palpation. Patient is tolerating NG tube well. Pending surgery eval for further recommendations. OBJECTIVE: Vital Signs Period Temp Pulse Resp BP Sys/Martin Pulse Ox Last 24 Hr 97.5 F-98.3 F 75-85 17-18 147-181/79-95 95-99 GENERAL: The patient is awake, alert, and fully oriented, in no acute distress. HEAD: Normal with no signs of trauma. EYES: EOMI, no scleral icterus ENT: Moist mucous membranes NECK: Trachea midline, supple LUNGS: Breath sounds equal, clear to auscultation bilaterally, no wheezes, no crackles, no accessory muscle use. HEART: Regular rate and rhythm, S1, S2, systolic murmur noted ABDOMEN: Moderate tenderness to palpation with deep palpation of RLQ. Soft, nondistended, normoactive bowel sounds EXTREMITIES: 2+ pulses, warm, well-perfused. no edema NEUROLOGICAL: Normal speech, gait not observed PSYCH: appropriate mood and affect SKIN: Warm, dry, normal turgor Laboratory Results - last 24 hr 07/23/19 07/23/19 07/23/19 19:10 19:10 19:10 WBC 6.3 RBC 4.41 Hgb 14.1 Hct 40.7 MCV 92.3 MCH 32.0 MCHC 34.7 RDW 13.9 Plt Count 165 D MPV 7.9 D Absolute Neuts (auto) 4.7 Neutrophils % 74.2 D Lymphocytes % 16.7 D Monocytes % 7.5 Eosinophils % 1.3 Basophils % 0.3 Nucleated RBC % 0 PT with INR INR PTT (Actin FS) Sodium 139 Potassium 3.6 Chloride 101 Carbon Dioxide 30 Anion Gap 8 BUN 23.4 H Creatinine 1.1 Est GFR (CKD-EPI)AfAm 53.77 Est GFR (CKD-EPI)NonAf 46.39 Random Glucose 132 H Lactic Acid Calcium 9.7 Phosphorus Magnesium 2.2 Total Bilirubin 0.6 AST 20 ALT 21 Alkaline Phosphatase 81 Creatine Kinase 62 Troponin I < 0.02 C-Reactive Protein Total Protein 7.6 Albumin 4.4 TSH Urine Color Urine Appearance Urine pH Ur Specific [place] Urine Protein Urine Glucose (UA) Urine Ketones Urine Blood Urine Nitrite Urine Bilirubin Urine Urobilinogen Ur Leukocyte Esterase Urine WBC (Auto) Urine RBC (Auto) Urine Casts (Auto) U Epithel Cells (Auto) Urine Bacteria (Auto) Blood Type Antibody Screen 07/23/19 07/23/19 07/23/19 19:10 19:10 19:10 WBC RBC Hgb Hct MCV MCH MCHC RDW Plt Count MPV Absolute Neuts (auto) Neutrophils % Lymphocytes % Monocytes % Eosinophils % Basophils % Nucleated RBC % PT with INR 12.10 INR 1.03 PTT (Actin FS) 34.1 Sodium Potassium Chloride Carbon Dioxide Anion Gap BUN Creatinine Est GFR (CKD-EPI)AfAm Est GFR (CKD-EPI)NonAf Random Glucose Lactic Acid 1.9 Calcium Phosphorus Magnesium Total Bilirubin AST ALT Alkaline Phosphatase Creatine Kinase Troponin I C-Reactive Protein Total Protein Albumin TSH Urine Color Yellow Urine Appearance Clear Urine pH 8.5 H D Ur Specific [place] 1.006 L Urine Protein Negative Urine Glucose (UA) Negative Urine Ketones Negative Urine Blood Negative Urine Nitrite Negative Urine Bilirubin Negative Urine Urobilinogen 0.2 Ur Leukocyte Esterase 1+ H Urine WBC (Auto) 8 Urine RBC (Auto) 0 Urine Casts (Auto) 0 U Epithel Cells (Auto) 0.7 Urine Bacteria (Auto) 2.6 Blood Type Antibody Screen 07/23/19 07/24/19 07/24/19 19:10 06:50 06:50 WBC 5.3 RBC 4.04 Hgb 13.0 Hct 37.7 MCV 93.5 MCH 32.2 MCHC 34.5 RDW 14.2 Plt Count 155 MPV 7.6 Absolute Neuts (auto) 3.6 Neutrophils % 67.0 Lymphocytes % 21.6 D Monocytes % 9.9 Eosinophils % 1.1 Basophils % 0.4 Nucleated RBC % 0 PT with INR INR PTT (Actin FS) Sodium 142 Potassium 3.9 Chloride 107 Carbon Dioxide 28 Anion Gap 7 L BUN 21.5 H Creatinine 1.0 Est GFR (CKD-EPI)AfAm 60.33 Est GFR (CKD-EPI)NonAf 52.06 Random Glucose 127 H Lactic Acid Calcium 8.4 L Phosphorus 4.2 Magnesium 2.1 Total Bilirubin 0.8 AST 16 ALT 17 Alkaline Phosphatase 70 Creatine Kinase Troponin I C-Reactive Protein Total Protein 6.7 Albumin 3.5 TSH Urine Color Urine Appearance Urine pH Ur Specific [place] Urine Protein Urine Glucose (UA) Urine Ketones Urine Blood Urine Nitrite Urine Bilirubin Urine Urobilinogen Ur Leukocyte Esterase Urine WBC (Auto) Urine RBC (Auto) Urine Casts (Auto) U Epithel Cells (Auto) Urine Bacteria (Auto) Blood Type O POSITIVE Antibody Screen Negative 07/24/19 06:50 WBC RBC Hgb Hct MCV MCH MCHC RDW Plt Count MPV Absolute Neuts (auto) Neutrophils % Lymphocytes % Monocytes % Eosinophils % Basophils % Nucleated RBC % PT with INR INR PTT (Actin FS) Sodium Potassium Chloride Carbon Dioxide Anion Gap BUN Creatinine Est GFR (CKD-EPI)AfAm Est GFR (CKD-EPI)NonAf Random Glucose Lactic Acid Calcium Phosphorus Magnesium Total Bilirubin AST ALT Alkaline Phosphatase Creatine Kinase Troponin I C-Reactive Protein 0.6 H Total Protein Albumin TSH 2.58 Urine Color Urine Appearance Urine pH Ur Specific [place] Urine Protein Urine Glucose (UA) Urine Ketones Urine Blood Urine Nitrite Urine Bilirubin Urine Urobilinogen Ur Leukocyte Esterase Urine WBC (Auto) Urine RBC (Auto) Urine Casts (Auto) U Epithel Cells (Auto) Urine Bacteria (Auto) Blood Type Antibody Screen Active Medications Generic Name Dose Route Start Last Admin Trade Name Freq PRN Reason Stop Dose Admin Heparin Sodium (Porcine) 5,000 unit 07/23/19 23:45 07/24/19 14:09 Heparin - SQ 5,000 unit TID KEVIN Administration Lactated Ringer's 1,000 ml in 1,000 mls @ 75 mls/hr 07/24/19 01:00 07/24/19 04:03 Lactated Ringers Solution IV 75 mls/hr ASDIR KEVIN Administration ASSESSMENT/PLAN: 83 y/o/f with a PMHx of 2 episodes of colon CA (hx of right and left anastamosis with last surveillance 2 yrs ago which was within normal limits), hyperthyroidism, and CAD (s/p bovine AV replacement within the last year) presents to the emergency department with mid to lower 10/10 sharp abdominal pain that began this afternoon. #Abdominal pain 2/2 Partial SBO - CT abd pelvis: partial SBO, without free air. - likely 2/2 adhesions due to previous abd surgeries - Surgery (Dr. Guzman) consulted for possible lysis of adhesions vs medical management. awaiting recs. - Abdominal pain improved with decompression with NG tube - keep NPO until cleared by surgery and then advance diet as tolerated - Tylenol for temps >100.4 - NG tube set to suction until cleared for removal by surgery - draining minimal amount of bilious fluid #HTN - Hold oral antihypertensives at this time #Hyperthyroidism - TSH within normal limits - hold methimazole at this time. can continue once NPO #Prophylaxis - Heparin #FEN - monitor and replete lytes as needed - LR at 75mls/hr #Disposition - admitted to [facility] surg floors - pending evaluation by surgery for further management recommendations Visit type - Emergency Visit Emergency Visit: Yes ED Registration Date: 07/23/19 Care time: The patient presented to the Emergency Department on the above date and was hospitalized for further evaluation of their emergent condition. - New Patient This patient is new to me today: Yes Date on this admission: 07/24/19 - Critical Care Critical Care patient: No ATTENDING PHYSICIAN STATEMENT I saw and evaluated the patient. I reviewed the resident's note and discussed the case with the resident. I agree with the resident's findings and plan as documented. SUBJECTIVE: OBJECTIVE: ASSESSMENT AND PLAN:
--- NOTE | 2019-07-24 15:55 | PN ---
Teaching Attending Note Name of Resident: Raf Celestin ATTENDING PHYSICIAN STATEMENT I saw and evaluated the patient. I reviewed the resident's note and discussed the case with the resident. I agree with the resident's findings and plan as documented. SUBJECTIVE: Abdominal pain improved with NG gastric decompression. Flatus, last BM yesterday. No melena/hematochezia. No fever, chills. OBJECTIVE: Afebrile, Hemodynamically Stable. Last Vital Signs Temp Pulse Resp BP Pulse Ox 97.1 F L 82 17 140/86 98 07/24/19 15:14 07/24/19 15:14 07/24/19 10:31 07/24/19 15:14 07/24/19 09:00 HEENT - Atraumatic, Normocephalic. NG tube in situ draining bilious material. Heart - S1, S2, soft SM Lungs - clear to auscultation Abdomen - Soft, RLQ tenderness. Bowel Sounds normal. Extremities - no edema, no calf tenderness. Laboratory Results - last 24 hr 07/23/19 07/23/19 07/23/19 19:10 19:10 19:10 WBC 6.3 RBC 4.41 Hgb 14.1 Hct 40.7 MCV 92.3 MCH 32.0 MCHC 34.7 RDW 13.9 Plt Count 165 D MPV 7.9 D Absolute Neuts (auto) 4.7 Neutrophils % 74.2 D Lymphocytes % 16.7 D Monocytes % 7.5 Eosinophils % 1.3 Basophils % 0.3 Nucleated RBC % 0 PT with INR INR PTT (Actin FS) Sodium 139 Potassium 3.6 Chloride 101 Carbon Dioxide 30 Anion Gap 8 BUN 23.4 H Creatinine 1.1 Est GFR (CKD-EPI)AfAm 53.77 Est GFR (CKD-EPI)NonAf 46.39 Random Glucose 132 H Lactic Acid Calcium 9.7 Phosphorus Magnesium 2.2 Total Bilirubin 0.6 AST 20 ALT 21 Alkaline Phosphatase 81 Creatine Kinase 62 Troponin I < 0.02 C-Reactive Protein Total Protein 7.6 Albumin 4.4 TSH Urine Color Urine Appearance Urine pH Ur Specific Strang Urine Protein Urine Glucose (UA) Urine Ketones Urine Blood Urine Nitrite Urine Bilirubin Urine Urobilinogen Ur Leukocyte Esterase Urine WBC (Auto) Urine RBC (Auto) Urine Casts (Auto) U Epithel Cells (Auto) Urine Bacteria (Auto) Blood Type Antibody Screen 07/23/19 07/23/19 07/23/19 19:10 19:10 19:10 WBC RBC Hgb Hct MCV MCH MCHC RDW Plt Count MPV Absolute Neuts (auto) Neutrophils % Lymphocytes % Monocytes % Eosinophils % Basophils % Nucleated RBC % PT with INR 12.10 INR 1.03 PTT (Actin FS) 34.1 Sodium Potassium Chloride Carbon Dioxide Anion Gap BUN Creatinine Est GFR (CKD-EPI)AfAm Est GFR (CKD-EPI)NonAf Random Glucose Lactic Acid 1.9 Calcium Phosphorus Magnesium Total Bilirubin AST ALT Alkaline Phosphatase Creatine Kinase Troponin I C-Reactive Protein Total Protein Albumin TSH Urine Color Yellow Urine Appearance Clear Urine pH 8.5 H D Ur Specific Strang 1.006 L Urine Protein Negative Urine Glucose (UA) Negative Urine Ketones Negative Urine Blood Negative Urine Nitrite Negative Urine Bilirubin Negative Urine Urobilinogen 0.2 Ur Leukocyte Esterase 1+ H Urine WBC (Auto) 8 Urine RBC (Auto) 0 Urine Casts (Auto) 0 U Epithel Cells (Auto) 0.7 Urine Bacteria (Auto) 2.6 Blood Type Antibody Screen 07/23/19 07/24/19 07/24/19 19:10 06:50 06:50 WBC 5.3 RBC 4.04 Hgb 13.0 Hct 37.7 MCV 93.5 MCH 32.2 MCHC 34.5 RDW 14.2 Plt Count 155 MPV 7.6 Absolute Neuts (auto) 3.6 Neutrophils % 67.0 Lymphocytes % 21.6 D Monocytes % 9.9 Eosinophils % 1.1 Basophils % 0.4 Nucleated RBC % 0 PT with INR INR PTT (Actin FS) Sodium 142 Potassium 3.9 Chloride 107 Carbon Dioxide 28 Anion Gap 7 L BUN 21.5 H Creatinine 1.0 Est GFR (CKD-EPI)AfAm 60.33 Est GFR (CKD-EPI)NonAf 52.06 Random Glucose 127 H Lactic Acid Calcium 8.4 L Phosphorus 4.2 Magnesium 2.1 Total Bilirubin 0.8 AST 16 ALT 17 Alkaline Phosphatase 70 Creatine Kinase Troponin I C-Reactive Protein Total Protein 6.7 Albumin 3.5 TSH Urine Color Urine Appearance Urine pH Ur Specific Strang Urine Protein Urine Glucose (UA) Urine Ketones Urine Blood Urine Nitrite Urine Bilirubin Urine Urobilinogen Ur Leukocyte Esterase Urine WBC (Auto) Urine RBC (Auto) Urine Casts (Auto) U Epithel Cells (Auto) Urine Bacteria (Auto) Blood Type O POSITIVE Antibody Screen Negative 07/24/19 06:50 WBC RBC Hgb Hct MCV MCH MCHC RDW Plt Count MPV Absolute Neuts (auto) Neutrophils % Lymphocytes % Monocytes % Eosinophils % Basophils % Nucleated RBC % PT with INR INR PTT (Actin FS) Sodium Potassium Chloride Carbon Dioxide Anion Gap BUN Creatinine Est GFR (CKD-EPI)AfAm Est GFR (CKD-EPI)NonAf Random Glucose Lactic Acid Calcium Phosphorus Magnesium Total Bilirubin AST ALT Alkaline Phosphatase Creatine Kinase Troponin I C-Reactive Protein 0.6 H Total Protein Albumin TSH 2.58 Urine Color Urine Appearance Urine pH Ur Specific Strang Urine Protein Urine Glucose (UA) Urine Ketones Urine Blood Urine Nitrite Urine Bilirubin Urine Urobilinogen Ur Leukocyte Esterase Urine WBC (Auto) Urine RBC (Auto) Urine Casts (Auto) U Epithel Cells (Auto) Urine Bacteria (Auto) Blood Type Antibody Screen Current Medications Generic Name Dose Route Start Last Admin Trade Name Freq PRN Reason Stop Dose Admin Heparin Sodium (Porcine) 5,000 unit 07/23/19 23:45 07/24/19 14:09 Heparin - SQ 5,000 unit TID KEVIN Administration Lactated Ringer's 1,000 ml in 1,000 mls @ 75 mls/hr 07/24/19 01:00 07/24/19 04:03 Lactated Ringers Solution IV 75 mls/hr ASDIR KEVIN Administration Home Medications Medication Instructions Recorded Amlodipine Besylate [Norvasc -] 2.5 mg PO DAILY 12/13/13 Escitalopram Oxalate [Lexapro -] 10 mg PO HS #0 12/16/13 Clopidogrel Bisulfate [Plavix] 75 mg PO DAILY 07/24/19 Methimazole 5 mg PO DAILY 07/24/19 ASSESSMENT AND PLAN: 83 year old female with history of Depression/Anxiety, Colon CA s/p hemicolectomy, HTN, HLD, Hyperthyroidism, CAD s/p stent 2017, pericarditis, prior abdominal surgeries admitted with partial SBO, improving with NG decompression, IV hydration. CT A/P - s/p partial colectomy (with resection of the ascending and proximal transverse colonic segments; colonic anastomosis are noted in the distal descending colon and distal transverse colonic segments). There is extensive mucosal wall thickening within the segments of small bowel in the right lower quadrant, suggesting inflammatory bowel disease. Proximal to these inflamed loops, there are findings suggestive of partial SBO. 1. Acute Small Bowel Obstruction Improving with conservative management. NG tube in situ draining bilious material - to low intermittent suction. Continue NPO status/IV hydration pending Surgery evaluation. Daily labs/chemistry/electrolytes. 2. HTN - Continue Norvasc once po intake improves. 3. Depression/Anxiety - continue Lexapro once PO intake resumes. 4. Hyperthyroidism - continue Methimazole. TSH 2.58 DVT Px - Heparin SQ
--- NOTE | 2019-07-24 20:34 | CONSULT ---
Consult Consult Specialty:: General Surgery Referred by:: Mitch Encinas/Davon Mahajan Reason for Consultation:: SBO - History of Present Illness Chief Complaint: RLQ pain with radiation centrally, bloating History of Present Illness: 83yo [place] F with multiple medical problems, including HTN, HLD, hyperthyroidism, colon CA x 2 in past with h/o resection x 2 and previous appendectomy, s/p hysterectomy for fibroids, last surveillance colonoscopy 3yrs ago (due in August, once asa/plavix can be held), s/p bovine AVR in February on asa /plavix, h/o SBO in past treated conservatively and without NGT, admitted through ER last night with RLQ pain beginning midday yesterday vaguely, becoming more significant and radiating around centrally, associated with bloating but no N/V, no F/C, no D/C, had last typical small, flat stool yesterday (goes 2-3 x daily), no urinary complaints. She had pasta and meatball meal after pain started. In ER, she had essentially normal labs except for mild dehydration (prerenal), and CT with oral and IV contrast showed probable partial SBO with inflamed/thickened SB loops in RLQ with some proximally dilated bowel and 2 colonic anastomoses, as well as stomach distended with contrast and retained food. She was made NPO and started on IV fluids, NGT was placed and lavaged with some food output, and surgery was asked to assess. She is seen and examined in bed with daughter present. She notes her pain is less since NGT, still a bit tender RLQ when she pushes on it, but not painful otherwise. She is passing gas today, but has not moved bowels yet. No N/V. NG output is clear, sumping at times and not others. She c/o throat discomfort from the tube, but is otherwise doing ok. Her PMD is Dr. Dubois, lube man is Dr. Araya, and GI is Dr. Wolfe. 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 - History Source History Provided By: Patient, Family Member (daughter) Limitations to Obtaining History: No Limitations - Past Medical History Cardio/Vascular: Yes: CAD, HTN, Hyperlipdemia, Other (pericarditis; bovine aortic valve replacement) Gastrointestinal: Yes: Cancer (Hx of colon CA x2, 15yrs apart with resections ( no stomas)) Reproductive: Yes: Fibroids, Postmenopausal Psych: Yes: Depression Rheumatology: Yes: Other (scleroderma remotely (legs/skin), in remission for many years) Endocrine: Yes: Hyperthyroidism Additional Medical History: bowel obstruction treated conservatively without NGT - Past Surgical History Past Surgical History: Yes: Appendectomy (at age 18), Colectomy (partial, x2 separately), Colonoscopy (last was 3 yrs ago, due after asa/plavix can be held in August), Hysterectomy, Stent (coronary x2), Valve Replacement (bovine aortic 02/24) - Alcohol/Substance Use Hx Alcohol Use: No History of Substance Use: reports: None - Smoking History Smoking history: Never smoked Have you smoked in the past 12 months: No - Social History ADL: Independent History of Recent Travel: No Home Medications - Allergies Allergies/Adverse Reactions: Allergies Allergy/AdvReac Type Severity Reaction Status Date / Time No Known Allergies Allergy Verified 07/23/19 17:09 - Home Medications Home Medications: Ambulatory Orders Amlodipine Besylate [Norvasc -] 2.5 mg PO DAILY 12/13/13 Escitalopram Oxalate [Lexapro -] 10 mg PO HS #0 12/16/13 Aspirin [Aspirin EC] 81 mg PO DAILY 07/24/19 Clopidogrel Bisulfate [Plavix] 75 mg PO DAILY 07/24/19 Methimazole 5 mg PO DAILY 07/24/19 Family Medical History Family History: Unremarkable (noncontributory to this episode) Review of Systems - Review of Systems Constitutional: denies: Chills, Fever, Loss of Appetite Eyes: denies: Blurred Vision, Recent Change in Vision HENT: denies: Difficult Swallowing, Throat Pain Neck: denies: Pain on Movement, Stiffness Cardiovascular: denies: Chest Pain, Palpitations Respiratory: denies: Cough, SOB Gastrointestinal: reports: Abdominal Pain (with hpi), Bloating (with hpi), Other (has 2-3 stools a day, narrow/flat). denies: Constipation, Diarrhea, Nausea, Vomiting Genitourinary: denies: Burning, Dysuria Musculoskeletal: denies: Back Pain, Joint Pain, Muscle Pain Integumentary: denies: Change in Color, Rash Neurological: denies: Dizziness, Headache Physical Exam Vital Signs: Vital Signs Temperature 97.1 F L 07/24/19 15:14 Pulse Rate 82 07/24/19 15:14 Respiratory Rate 17 07/24/19 10:31 Blood Pressure 140/86 07/24/19 15:14 O2 Sat by Pulse Oximetry (%) 98 07/24/19 09:00 Constitutional: Yes: Well Nourished, No Distress, Calm Eyes: Yes: EOM Intact. No: Conjunctiva Clear (yellow exudate in medial corners) HENT: Yes: Atraumatic, Normocephalic, Other (NGT in place, sumps with some clear fluid out, minimal output on floor) Neck: Yes: Supple, Trachea Midline Cardiovascular: Yes: Regular Rate and Rhythm, Murmur Respiratory: Yes: Regular, CTA Bilaterally Gastrointestinal: Yes: Soft, Abdomen, Obese, Hyperactive Bowel Sounds, Tenderness (RLQ without rebound or guarding), Other (well-healed midline and left lower paramedian scars, RLQ scar, pfannenstiel scar). No: Tenderness, Epigastrium, Tenderness, Rebound ...Rectal Exam: Yes: Deferred Renal/: No: CVA Tenderness - Left, CVA Tenderness - Right Musculoskeletal: No: Joint Stiffness, Joint Swelling Extremities: No: Cool, Cyanosis Edema: No Peripheral Pulses WNL: Yes Integumentary: No: Jaundice, Rash Neurological: Yes: Alert, Oriented Psychiatric: Yes: Alert, Oriented Labs: CBC, BMP 07/24/19 06:50 07/24/19 06:50 CMP Sodium 142 mmol/L (136-145) 07/24/19 06:50 Potassium 3.9 mmol/L (3.5-5.1) 07/24/19 06:50 Chloride 107 mmol/L (98-107) 07/24/19 06:50 Carbon Dioxide 28 mmol/L (21-32) 07/24/19 06:50 Anion Gap 7 MMOL/L (8-16) L 07/24/19 06:50 BUN 21.5 mg/dL (7-18) H 07/24/19 06:50 Creatinine 1.0 mg/dL (0.55-1.3) 07/24/19 06:50 Est GFR (CKD-EPI)AfAm 60.33 07/24/19 06:50 Est GFR (CKD-EPI)NonAf 52.06 07/24/19 06:50 Random Glucose 127 mg/dL (74-106) H 07/24/19 06:50 Lactic Acid 1.9 mmol/L (0.4-2.0) 07/23/19 19:10 Calcium 8.4 mg/dL (8.5-10.1) L 07/24/19 06:50 Phosphorus 4.2 mg/dL (2.5-4.9) 07/24/19 06:50 Magnesium 2.1 mg/dL (1.8-2.4) 07/24/19 06:50 Total Bilirubin 0.8 mg/dL (0.2-1) 07/24/19 06:50 AST 16 U/L (15-37) 07/24/19 06:50 ALT 17 U/L (13-61) 07/24/19 06:50 Alkaline Phosphatase 70 U/L (45-117) 07/24/19 06:50 Creatine Kinase 62 U/L (26-192) 07/23/19 19:10 Troponin I < 0.02 ng/ml (0.00-0.05) 07/23/19 19:10 C-Reactive Protein 0.6 MG/DL (0.00-0.3) H 07/24/19 06:50 Total Protein 6.7 g/dl (6.4-8.2) 07/24/19 06:50 Albumin 3.5 g/dl (3.4-5.0) 07/24/19 06:50 TSH 2.58 uIU/ml (0.358-3.74) 07/24/19 06:50 INR, PTT INR 1.03 (0.83-1.09) 07/23/19 19:10 Urine Test Results Urine Color Yellow 07/23/19 19:10 Urine Appearance Clear 07/23/19 19:10 Urine pH 8.5 (5.0-8.0) H D 07/23/19 19:10 Ur Specific Schurz 1.006 (1.010-1.035) L 07/23/19 19:10 Urine Protein Negative (NEGATIVE) 07/23/19 19:10 Urine Glucose (UA) Negative (NEGATIVE) 07/23/19 19:10 Urine Ketones Negative (NEGATIVE) 07/23/19 19:10 Urine Blood Negative (NEGATIVE) 07/23/19 19:10 Urine Nitrite Negative (NEGATIVE) 07/23/19 19:10 Urine Bilirubin Negative (NEGATIVE) 07/23/19 19:10 Ur Leukocyte Esterase 1+ (NEGATIVE) H 07/23/19 19:10 Imaging - Results X-ray: Pending Cat Scan: Report Reviewed, Image Reviewed (po contrast in small bowel, with inflamed/thickened SB loops in RLQ, mild dilation proximal to this; colonic anastomoses noted, stomach distended with contrast and retained food, no free air or fluid) Problem List - Problems (1) Partial small bowel obstruction Assessment/Plan: with SB thickening/inflammation of loops in RLQ ??inflammatory bowel disease? agree with NPO/IVF/NGT will get AXR to assess passage of oral contrast into colon pt passing flatus, no BM since yesterday pain is better since NGT placement HOLD ALL PO meds while NPO with NGT HOLD aspirin and plavix ? if remote h/o scleroderma could contribute to SB findings? given multiple surgical history, recent AVR and asa/plavix, would avoid surgical intervention if at all possible pt would like PMD Dr. Panda Dubois to know she is in the hospital will follow with you Code(s): K56.600 - PARTIAL INTESTINAL OBSTRUCTION, UNSPECIFIED TO CAUSE (2) RLQ abdominal pain Code(s): R10.31 - RIGHT LOWER QUADRANT PAIN (3) H/O malignant neoplasm of colon Assessment/Plan: pt known to Dr. Wolfe (formerly pt of Dr. Rivera) Code(s): Z85.038 - PERSONAL HISTORY OF MALIGNANT NEOPLASM OF LARGE INTESTINE (4) HTN (hypertension) Assessment/Plan: on amlodipine - HOLD while NPO with NGT IV meds prn Code(s): I10 - ESSENTIAL (PRIMARY) HYPERTENSION Qualifiers: Hypertension type: essential hypertension Qualified Code(s): I10 - Essential (primary) hypertension (5) Hyperlipidemia Code(s): E78.5 - HYPERLIPIDEMIA, UNSPECIFIED Qualifiers: Hyperlipidemia type: unspecified Qualified Code(s): E78.5 - Hyperlipidemia , unspecified (6) Hyperthyroidism Assessment/Plan: on methimazole - HOLD while NPO with NGT Code(s): E05.90 - THYROTOXICOSIS, UNSP WITHOUT THYROTOXIC CRISIS OR STORM (7) S/P aortic valve replacement Assessment/Plan: bovine, on asa/plavix until 08/19/19 being held currently pt known to Dr. Araya - consider consultation Code(s): Z95.2 - PRESENCE OF PROSTHETIC HEART VALVE
[2019-07-24] MEDS: ESCITALOPRAM OXALATE 10 MG TABLET (FP) PO SCH (22:38)
[2019-07-25] MEDS: LACTATED RINGERS SOLUTION 1,000 ML/1,000 ML INFUS.BAG IV SCH ×2 (05:00→12:28)
[2019-07-25] MEDS: HEPARIN NA (PORCINE) 5,000 UNITS/ML 1ML VIAL SQ SCH ×3 (06:15→21:44)
[2019-07-25 08:33] LABS: HEMATOCRIT 36.7 % (32.4-45.2); HEMOGLOBIN 12.7 GM/dL (10.7-15.3); MCH 32.7 pg (25.7-33.7); MCHC 34.7 g/dl (32.0-36.0); MEAN CELL VOLUME 94.2 fl (80-96); MEAN PLT VOLUME 7.7 fl (7.5-11.1); PLATELET COUNT 133 K/MM3 (134-434); RBC 3.89 M/mm3 (3.60-5.2); RDW 13.6 % (11.6-15.6); WHITE BLOOD COUNT 4.2 K/mm3 (4.0-10.0)
[2019-07-25 08:47] LABS: ALBUMIN 3.6 g/dl (3.4-5.0); BILIRUBIN,TOTAL 0.8 mg/dL (0.2-1); BLOOD UREA NITROGEN 14.8 mg/dL (7-18); CALCIUM 8.6 mg/dL (8.5-10.1); CREATININE 0.7 mg/dL (0.55-1.3); POTASSIUM 3.6 mmol/L (3.5-5.1); TOT PROT 6.6 g/dl (6.4-8.2)
--- NOTE | 2019-07-25 09:48 | EKG ---
Test Reason : Blood Pressure : / mmHG Vent. 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
--- NOTE | 2019-07-25 11:39 | PN ---
Teaching Attending Note Name of Resident: Raf Celestin ATTENDING PHYSICIAN STATEMENT I saw and evaluated the patient. I reviewed the resident's note and discussed the case with the resident. I agree with the resident's findings and plan as documented. SUBJECTIVE: Feeling better, less distended, BM last night. No melena/ hematochezia. No fever, chills. OBJECTIVE: Afebrile, Hemodynamically Stable. Last Vital Signs Temp Pulse Resp BP Pulse Ox 98.4 F 79 18 159/87 98 07/25/19 06:00 07/25/19 06:00 07/25/19 06:00 07/25/19 06:00 07/24/19 21:00 HEENT - Atraumatic, Normocephalic. NG tube in situ draining bilious material. Heart - S1, S2, soft SM Lungs - clear to auscultation Abdomen - Soft, RLQ tenderness. Bowel Sounds normal. Extremities - no edema, no calf tenderness. Laboratory Results - last 24 hr 07/25/19 07/25/19 07:07 07:07 WBC 4.2 RBC 3.89 Hgb 12.7 Hct 36.7 MCV 94.2 MCH 32.7 MCHC 34.7 RDW 13.6 Plt Count 133 L MPV 7.7 Sodium 142 Potassium 3.6 Chloride 106 Carbon Dioxide 30 Anion Gap 7 L BUN 14.8 Creatinine 0.7 Est GFR (CKD-EPI)AfAm 92.86 Est GFR (CKD-EPI)NonAf 80.12 Random Glucose 90 Calcium 8.6 Total Bilirubin 0.8 AST 19 ALT 14 Alkaline Phosphatase 63 Total Protein 6.6 Albumin 3.6 Current Medications Generic Name Dose Route Start Last Admin Trade Name Freq PRN Reason Stop Dose Admin Amlodipine Besylate 2.5 mg 07/25/19 10:00 Norvasc - PO DAILY KEVIN Escitalopram Oxalate 10 mg 07/24/19 22:00 07/24/19 22:38 Lexapro - PO Not Given HS KEVIN Heparin Sodium (Porcine) 5,000 unit 07/23/19 23:45 07/25/19 06:15 Heparin - SQ 5,000 unit TID KEVIN Administration Lactated Ringer's 1,000 ml in 1,000 mls @ 75 mls/hr 07/24/19 01:00 07/25/19 05:00 Lactated Ringers Solution IV Not Given ASDIR KEVIN Methimazole 5 mg 07/25/19 10:00 Tapazole - PO DAILY [facility] Home Medications Medication Instructions Recorded Amlodipine Besylate [Norvasc -] 2.5 mg PO DAILY 12/13/13 Escitalopram Oxalate [Lexapro -] 10 mg PO HS #0 12/16/13 Aspirin [Aspirin EC] 81 mg PO DAILY 07/24/19 Clopidogrel Bisulfate [Plavix] 75 mg PO DAILY 07/24/19 Methimazole 5 mg PO DAILY 07/24/19 ASSESSMENT AND PLAN: 83 year old female with history of Depression/Anxiety, Colon CA s/p hemicolectomy, HTN, HLD, Hyperthyroidism, CAD s/p stent 2016, s/p Bioprosthetic AV valave, Hx Pericarditis, prior abdominal surgeries admitted with partial SBO , improved with NG decompression, IV hydration. CT A/P - s/p partial colectomy (with resection of the ascending and proximal transverse colonic segments; colonic anastomosis are noted in the distal descending colon and distal transverse colonic segments). There is extensive mucosal wall thickening within the segments of small bowel in the right lower quadrant, suggesting inflammatory bowel disease. Proximal to these inflamed loops, there are findings suggestive of partial SBO. 1. Acute Small Bowel Obstruction Improving with conservative management. AXR shows resolution Remove NG tube and trial of clear liquids. Surgery following. 2. HTN - Continue Norvasc once po intake improves. 3. Depression/Anxiety - continue Lexapro once PO intake resumes. 4. Hyperthyroidism - continue Methimazole. TSH 2.58 5. CAD s/p stent 2016 - ASA/Plavix held for now. DVT Px - Heparin SQ
[2019-07-25] MEDS: METHIMAZOLE 5 MG TABLET (FP) PO SCH (12:02)
[2019-07-25] MEDS: amLODIPine BESYLATE 2.5 MG TABLET (FP) PO SCH (12:02)
--- NOTE | 2019-07-25 12:23 | PN ---
Physical Exam: SUBJECTIVE: Patient seen and examined. Patient had a BM this morning. Patient also with increased drainage from NG tube overnight. She states her pain has improved compared to yesterday. Denies any chest pain, fever, chills, SOB. OBJECTIVE: Vital Signs Period Temp Pulse Resp BP Sys/Martin Pulse Ox Last 24 Hr 97.1 F-98.4 F 79-82 18-19 140-159/80-87 98 GENERAL: The patient is awake, alert, and fully oriented, in no acute distress. HEAD: Normal with no signs of trauma. EYES: EOMI, no scleral icterus ENT: Moist mucous membranes. NG tube in place NECK: Trachea midline, supple LUNGS: Breath sounds equal, clear to auscultation bilaterally, no wheezes, no crackles, no accessory muscle use. HEART: Regular rate and rhythm, S1, S2, systolic murmur noted ABDOMEN: Mild tenderness to palpation with deep palpation of RLQ. Soft, nondistended, normoactive bowel sounds EXTREMITIES: 2+ pulses, warm, well-perfused. no edema NEUROLOGICAL: Normal speech, gait not observed PSYCH: appropriate mood and affect SKIN: Warm, dry, normal turgor Laboratory Results - last 24 hr 07/25/19 07/25/19 07:07 07:07 WBC 4.2 RBC 3.89 Hgb 12.7 Hct 36.7 MCV 94.2 MCH 32.7 MCHC 34.7 RDW 13.6 Plt Count 133 L MPV 7.7 Sodium 142 Potassium 3.6 Chloride 106 Carbon Dioxide 30 Anion Gap 7 L BUN 14.8 Creatinine 0.7 Est GFR (CKD-EPI)AfAm 92.86 Est GFR (CKD-EPI)NonAf 80.12 Random Glucose 90 Calcium 8.6 Total Bilirubin 0.8 AST 19 ALT 14 Alkaline Phosphatase 63 Total Protein 6.6 Albumin 3.6 Active Medications Generic Name Dose Route Start Last Admin Trade Name Freq PRN Reason Stop Dose Admin Amlodipine Besylate 2.5 mg 07/25/19 10:00 07/25/19 12:02 Norvasc - PO Not Given DAILY KEVIN Escitalopram Oxalate 10 mg 07/24/19 22:00 07/24/19 22:38 Lexapro - PO Not Given HS KEVIN Heparin Sodium (Porcine) 5,000 unit 07/23/19 23:45 07/25/19 06:15 Heparin - SQ 5,000 unit TID KEVIN Administration Lactated Ringer's 1,000 ml in 1,000 mls @ 75 mls/hr 07/24/19 01:00 07/25/19 05:00 Lactated Ringers Solution IV Not Given ASDIR KEVIN Methimazole 5 mg 07/25/19 10:00 07/25/19 12:02 Tapazole - PO Not Given DAILY KEVIN ASSESSMENT/PLAN: 83 y/o/f with a PMHx of 2 episodes of colon CA (hx of right and left anastamosis with last surveillance 2 yrs ago which was within normal limits), hyperthyroidism, and CAD (s/p bovine AV replacement within the last year) presents to the emergency department with mid to lower 10/10 sharp abdominal pain. #Abdominal pain 2/2 Partial SBO - CT abd pelvis: partial SBO, without free air. - Surgery on board, has seen patient. recommended conservative management at this time and will re-evaluate patient. -if patient tolerates PO no further indication for surgical follow up at this time - Remove NG tube and trial of clear liquids, advance diet as tolerated - Abdominal pain improved with conservative management so far #HTN - Continue home HTN meds once no longer NPO #Hyperthyroidism - TSH within normal limits - hold methimazole at this time. Continue once no longer NPO #Prophylaxis - Heparin #FEN - monitor and replete lytes as needed - LR at 75mls/hr #Disposition - admitted to med surg floors Visit type - Emergency Visit Emergency Visit: Yes ED Registration Date: 07/23/19 Care time: The patient presented to the Emergency Department on the above date and was hospitalized for further evaluation of their emergent condition. - New Patient This patient is new to me today: No - Critical Care Critical Care patient: No ATTENDING PHYSICIAN STATEMENT I saw and evaluated the patient. I reviewed the resident's note and discussed the case with the resident. I agree with the resident's findings and plan as documented. SUBJECTIVE: OBJECTIVE: ASSESSMENT AND PLAN:
--- NOTE | 2019-07-25 12:37 | PN ---
Progress Note, Physician History of Present Illness: Pt with partial SBO, inflammatory changes of SB loops in RLQ. H/O colon CA with 2 previous partial colon resections. AXR last night showed oral contrast in distal colon and rectum, NG in stomach. Output had been minimal after initial placement. She is seen and examined in bed. Feeling better - less bloated, still some RLQ pain/tenderness but less. Had BMs last night after AXR. NGT was just removed, and she will start on clear liquid trial. Discussed with Dr. Curtis. - Current Medication List Current Medications: Active Medications Amlodipine Besylate (Norvasc -) 2.5 mg PO DAILY [facility] Last Admin: 07/25/19 12:02 Dose: Not Given Escitalopram Oxalate (Lexapro -) 10 mg PO HS [facility] Last Admin: 07/24/19 22:38 Dose: Not Given Heparin Sodium (Porcine) (Heparin -) 5,000 unit SQ TID [facility] Last Admin: 07/25/19 06:15 Dose: 5,000 unit Lactated Ringer's (Lactated Ringers Solution) 1,000 ml in 1,000 mls @ 75 mls/ hr IV ASDIR [facility] Last Admin: 07/25/19 12:28 Dose: 75 mls/hr Methimazole (Tapazole -) 5 mg PO DAILY [facility] Last Admin: 07/25/19 12:02 Dose: Not Given - Objective Vital Signs: Vital Signs Temperature 98.0 F 07/25/19 10:00 Pulse Rate 77 07/25/19 10:00 Respiratory Rate 18 07/25/19 10:00 Blood Pressure 155/85 07/25/19 10:00 O2 Sat by Pulse Oximetry (%) 98 07/24/19 21:00 Constitutional: Yes: Well Nourished, No Distress, Calm Eyes: Yes: Conjunctiva Clear, EOM Intact HENT: Yes: Atraumatic, Normocephalic, Other (NGT out) Gastrointestinal: Yes: Soft, Hyperactive Bowel Sounds, Tenderness (RLQ, mild without rebound or guarding). No: Distention Extremities: No: Cool, Cyanosis Integumentary: No: Jaundice, Rash Neurological: Yes: Alert, Oriented Labs: CBC, BMP 07/25/19 07:07 07/25/19 07:07 CMP Sodium 142 mmol/L (136-145) 07/25/19 07:07 Potassium 3.6 mmol/L (3.5-5.1) 07/25/19 07:07 Chloride 106 mmol/L (98-107) 07/25/19 07:07 Carbon Dioxide 30 mmol/L (21-32) 07/25/19 07:07 Anion Gap 7 MMOL/L (8-16) L 07/25/19 07:07 BUN 14.8 mg/dL (7-18) 07/25/19 07:07 Creatinine 0.7 mg/dL (0.55-1.3) 07/25/19 07:07 Est GFR (CKD-EPI)AfAm 92.86 07/25/19 07:07 Est GFR (CKD-EPI)NonAf 80.12 07/25/19 07:07 Random Glucose 90 mg/dL (74-106) 07/25/19 07:07 Lactic Acid 1.9 mmol/L (0.4-2.0) 07/23/19 19:10 Calcium 8.6 mg/dL (8.5-10.1) 07/25/19 07:07 Phosphorus 4.2 mg/dL (2.5-4.9) 07/24/19 06:50 Magnesium 2.1 mg/dL (1.8-2.4) 07/24/19 06:50 Total Bilirubin 0.8 mg/dL (0.2-1) 07/25/19 07:07 AST 19 U/L (15-37) 07/25/19 07:07 ALT 14 U/L (13-61) 07/25/19 07:07 Alkaline Phosphatase 63 U/L (45-117) 07/25/19 07:07 Creatine Kinase 62 U/L (26-192) 07/23/19 19:10 Troponin I < 0.02 ng/ml (0.00-0.05) 07/23/19 19:10 C-Reactive Protein 0.6 MG/DL (0.00-0.3) H 07/24/19 06:50 Total Protein 6.6 g/dl (6.4-8.2) 07/25/19 07:07 Albumin 3.6 g/dl (3.4-5.0) 07/25/19 07:07 TSH 2.58 uIU/ml (0.358-3.74) 07/24/19 06:50 - ....Imaging X-ray: Report Reviewed (no signs obstruction), Image Reviewed (noted last night - contrast in distal colon and rectum) Problem List - Problems (1) Partial small bowel obstruction Assessment/Plan: with SB thickening/inflammation of loops in RLQ ??inflammatory bowel disease? ? if remote h/o scleroderma could contribute to SB findings? AXR showed passage of oral contrast into distal colon pt moved bowels last night, feeling better, less distended still with mild RLQ pain/tenderness but better agree with starting clear liquids, advance slowly as tolerated would hold aspirin and plavix today but could resume other home meds discussed with Dr. Curtis presuming tolerates po, no indication for further surgical followup will remain available as needed Problems reviewed: Yes Code(s): K56.600 - PARTIAL INTESTINAL OBSTRUCTION, UNSPECIFIED TO CAUSE (2) RLQ abdominal pain Assessment/Plan: improved Code(s): R10.31 - RIGHT LOWER QUADRANT PAIN (3) H/O malignant neoplasm of colon Assessment/Plan: pt known to Dr. Wolfe (formerly pt of Dr. Rivera) will need colonoscopy once safe to do so Code(s): Z85.038 - PERSONAL HISTORY OF MALIGNANT NEOPLASM OF LARGE INTESTINE (4) HTN (hypertension) Code(s): I10 - ESSENTIAL (PRIMARY) HYPERTENSION Qualifiers: Hypertension type: essential hypertension Qualified Code(s): I10 - Essential (primary) hypertension (5) Hyperlipidemia Code(s): E78.5 - HYPERLIPIDEMIA, UNSPECIFIED Qualifiers: Hyperlipidemia type: unspecified Qualified Code(s): E78.5 - Hyperlipidemia , unspecified (6) Hyperthyroidism Assessment/Plan: on methimazole, ok to resume Code(s): E05.90 - THYROTOXICOSIS, UNSP WITHOUT THYROTOXIC CRISIS OR STORM (7) S/P aortic valve replacement Assessment/Plan: bovine, on asa/plavix until at least 08/19/19 being held currently pt known to Dr. Araya Code(s): Z95.2 - PRESENCE OF PROSTHETIC HEART VALVE
[2019-07-25] MEDS ORDERED: amLODIPine BESYLATE 2.5 MG TABLET (FP) PO ONE (14:26)
[2019-07-25] MEDS: ESCITALOPRAM OXALATE 10 MG TABLET (FP) PO SCH (21:44)
[2019-07-26] MEDS: LACTATED RINGERS SOLUTION 1,000 ML/1,000 ML INFUS.BAG IV SCH (01:42)
[2019-07-26] MEDS: HEPARIN NA (PORCINE) 5,000 UNITS/ML 1ML VIAL SQ SCH ×2 (06:33→14:19)
[2019-07-26 08:41] LABS: ALBUMIN 3.5 g/dl (3.4-5.0); BILIRUBIN,TOTAL 0.7 mg/dL (0.2-1); CALCIUM 8.7 mg/dL (8.5-10.1); CREATININE 0.7 mg/dL (0.55-1.3); POTASSIUM 3.6 mmol/L (3.5-5.1); TOT PROT 6.7 g/dl (6.4-8.2)
[2019-07-26] MEDS: METHIMAZOLE 5 MG TABLET (FP) PO SCH (09:02)
[2019-07-26] MEDS: amLODIPine BESYLATE 2.5 MG TABLET (FP) PO SCH (09:02)
--- NOTE | 2019-07-26 14:24 | DS ---
Physical Exam: SUBJECTIVE: Patient seen and examined. States she has no pain today. She has been able to walk and eat without pain. She has been tolerating advances in her diet well. She denies any chest pain, N/V/D, constipation. OBJECTIVE: Vital Signs Period Temp Pulse Resp BP Sys/Martin Pulse Ox Last 24 Hr 97.8 F-98.0 F 67-75 20-20 144-171/82-84 PHYSICAL EXAM GENERAL: The patient is awake, alert, and fully oriented, in no acute distress. HEAD: Normal with no signs of trauma. EYES: EOMI, no scleral icterus, PERRL ENT: Moist mucous membranes NECK: Trachea midline, supple LUNGS: Breath sounds equal, clear to auscultation bilaterally, no wheezes, no crackles, no accessory muscle use. HEART: systolic murmur noted, Regular rate and rhythm, S1, S2 ABDOMEN: Soft, nondistended, nontender, normoactive bowel sounds. no guarding, no rebound EXTREMITIES: 2+ pulses, warm, well-perfused. no edema NEUROLOGICAL: Normal speech, gait not observed. sensation intact throughout PSYCH: appropriate mood and affect SKIN: Warm, dry, normal turgor LABS Laboratory Results - last 24 hr 07/26/19 07:45 Sodium 142 Potassium 3.6 Chloride 108 H Carbon Dioxide 29 Anion Gap 5 L BUN 11.0 Creatinine 0.7 Est GFR (CKD-EPI)AfAm 92.86 Est GFR (CKD-EPI)NonAf 80.12 Random Glucose 98 Calcium 8.7 Total Bilirubin 0.7 AST 23 ALT 16 Alkaline Phosphatase 61 Total Protein 6.7 Albumin 3.5 HOSPITAL COURSE: Date of Admission:07/23/19 Date of Discharge: 07/26/19 83 y/o/f with a PMHx of 2 episodes of colon CA (hx of right and left anastamosis with last surveillance 2 yrs ago which was within normal limits), hyperthyroidism, and CAD (s/p bovine AV replacement within the last year) presented to the emergency department with mid to lower 10/10 sharp abdominal pain. On CT abd/pelvis patient was found to have a partial SBO. Patient had an NG tube placed and was made NPO until her symptoms improved. Surgery was consulted and patient was seen by Dr. Guzman who agreed with conservative management. An abdominal xray was done which showed improvement of SBO. Patient' s NG tube was removed and she was started on clear liquid diet and her diet was advanced as tolerated. Patient's home medications were continued when she was able to tolerate PO intake. Patient stable for discharge at this time. Minutes to complete discharge: 36 Discharge Summary Problems reviewed: Yes Reason For Visit: SMALL BOWEL OBSTRUCTION Current Active Problems Partial small bowel obstruction (Acute) RLQ abdominal pain (Acute) SBO (small bowel obstruction) (Acute) H/O malignant neoplasm of colon (Chronic) S/P aortic valve replacement (Chronic) Condition: Improved - Instructions Diet, Activity, Other Instructions: You presented to the hospital with abdominal pain and were found to have a partial small bowel obstruction. You were seen by our surgery team, Dr. Guzman, and were found not to need any surgery at this time as your condition improved with medical management. You tolerated advancements in your diet well without any abdominal pain. No changes were made to your medications. Follow up with the following physicians: 1. Please follow up with your primary care provider in one week. Activity and Diet 1. You are being discharged home. Recommend daily exercise to strengthen your muscles. 2. Please continue to monitor your diet as you need to advance your diet slowly and as tolerated. Continue all your other medications as prescribed Please return to the ER if you have any signs or symptoms of chest pain, shortness of breath, uncontrollable fever, chills, nausea, vomiting, numbness, tingling, or weakness in any part of your body, changes in vision, or slurred speech. Please return to the ER if symptoms persist, worsen, or new symptoms arise. Referrals: Panda Dubois MD [Staff Physician] - Disposition: HOME - Home Medications Comprehensive Discharge Medication List: Ambulatory Orders Amlodipine Besylate [Norvasc -] 2.5 mg PO DAILY 12/13/13 Escitalopram Oxalate [Lexapro -] 10 mg PO HS #0 12/16/13 Aspirin [Aspirin EC] 81 mg PO DAILY 07/24/19 Clopidogrel Bisulfate [Plavix] 75 mg PO DAILY 07/24/19 Methimazole 5 mg PO DAILY 07/24/19 This patient is new to me today: No Emergency Visit: Yes ED Registration Date: 07/23/19 Care time: The patient presented to the Emergency Department on the above date and was hospitalized for further evaluation of their emergent condition. Critical Care patient: No - Discharge Referral Referred to [facility] No ATTENDING PHYSICIAN STATEMENT I saw and evaluated the patient. I reviewed the resident's note and discussed the case with the resident. I agree with the resident's findings and plan as documented. SUBJECTIVE: OBJECTIVE: ASSESSMENT AND PLAN:
[2019-07-26 14:50] VITALS: BP 140/82; PULSE 77; TEMP 98.3
--- NOTE | 2019-07-26 17:14 | PN ---
Teaching Attending Note Name of Resident: Frank Titus ATTENDING PHYSICIAN STATEMENT I saw and evaluated the patient. I reviewed the resident's note and discussed the case with the resident. I agree with the resident's findings and plan as documented. SUBJECTIVE: Feeling much improved. No further abdominal discomfort. No further nausea/vomiting. No fever/chills. OBJECTIVE: Afebrile, Hemodynamically Stable. Last Vital Signs Temp Pulse Resp BP Pulse Ox 98.3 F 77 20 140/82 98 07/26/19 14:49 07/26/19 14:49 07/26/19 09:58 07/26/19 14:49 07/25/19 09:00 Heart - S1, S2, soft SM Lungs - clear to auscultation Abdomen - Soft, tenderness resolved. Bowel Sounds normal. Extremities - no edema, no calf tenderness. Laboratory Results - last 24 hr 07/26/19 07:45 Sodium 142 Potassium 3.6 Chloride 108 H Carbon Dioxide 29 Anion Gap 5 L BUN 11.0 Creatinine 0.7 Est GFR (CKD-EPI)AfAm 92.86 Est GFR (CKD-EPI)NonAf 80.12 Random Glucose 98 Calcium 8.7 Total Bilirubin 0.7 AST 23 ALT 16 Alkaline Phosphatase 61 Total Protein 6.7 Albumin 3.5 Discharge Medications Medication Instructions Recorded Amlodipine Besylate [Norvasc -] 2.5 mg PO DAILY 12/13/13 Escitalopram Oxalate [Lexapro -] 10 mg PO HS #0 12/16/13 Aspirin [Aspirin EC] 81 mg PO DAILY 07/24/19 Clopidogrel Bisulfate [Plavix] 75 mg PO DAILY 07/24/19 Methimazole 5 mg PO DAILY 07/24/19 ASSESSMENT AND PLAN: 83 year old female with history of Depression/Anxiety, Colon CA s/p hemicolectomy, HTN, HLD, Hyperthyroidism, CAD s/p stent 2017, s/p Bioprosthetic AV valave, Hx Pericarditis, prior abdominal surgeries admitted with partial SBO , improved with NG decompression, IV hydration. CT A/P - s/p partial colectomy (with resection of the ascending and proximal transverse colonic segments; colonic anastomosis are noted in the distal descending colon and distal transverse colonic segments). There is extensive mucosal wall thickening within the segments of small bowel in the right lower quadrant, suggesting inflammatory bowel disease. Proximal to these inflamed loops, there are findings suggestive of partial SBO. 1. Acute Small Bowel Obstruction Improved with conservative management. AXR shows resolution Tolerating advanced diet. Medically and Surgically cleared for discharge. 2. HTN - Continue Norvasc. 3. Depression/Anxiety - continue Lexapro. 4. Hyperthyroidism - continue Methimazole. TSH 2.58 5. CAD s/p stent 2017 - resume ASA/Plavix.
== END 2019-07-26 16:31 | disposition home or self-care (01) | DRG 390 ==
LOC: JER 17:04 → JERBED 22:59 → J6S 07-24 02:55
PROVIDERS: ADMIT Internal Medicine
DX: K56.600 Partial intestinal obstruction, unspecified as to cause (principal); Z85.038 Personal history of other malignant neoplasm of large intestine; I10 Essential (primary) hypertension; E78.5 Hyperlipidemia, unspecified; E05.90 Thyrotoxicosis, unspecified without thyrotoxic crisis or storm; Z95.2 Presence of prosthetic heart valve; I25.10 Atherosclerotic heart disease of native coronary artery without angina pectoris; J44.9 Chronic obstructive pulmonary disease, unspecified; F41.8 Other specified anxiety disorders; Z98.61 Coronary angioplasty status; R10.31 Right lower quadrant pain
CPT/HCPCS: 36415; 74019-TC-FY; 74177-TC; 80053; 81003; 82550; 83605; 83735; 84100; 84443; 84484; 85025; 85027; 85610; 85730; 86140; 86850; 86900; 86901; 87086; 93005; 93010; 97116-GP; 97161-GP; 99283-25; J0131; J1644; J7030; Q9967

== ENCOUNTER 2019-08-22 07:15 | Day surgery (SDC) | payer OTHER, BC | END 2019-08-22 09:55 | disposition home or self-care (01) | LOC: JASU-ENDO 07:15 | PROC: 0DJD8ZZ Inspection of Lower Intestinal Tract, Via Natural or Artificial Opening Endoscopic (ICD-10-PCS; principal; 2019-08-22 08:15) ==

== ENCOUNTER 2019-08-29 12:12 | Day surgery (SDC) | payer OTHER, BC ==
[2019-08-25 12:28] VITALS: BMI 25.9
[2019-08-29 14:16] VITALS: TEMP 97.5
[2019-08-29 15:07] VITALS: BP 132/63; PULSE 74
--- NOTE | 2019-08-31 11:41 | PATH ---
Surgical Pathology Report Patient Name: SHIN LIN [facility]. Rec. #: [id number] /Age/Gender: 1935 (Age: 84) / F Account: [id number] Location: [facility]-ENDOSCOPY Taken: 08/29/2019 Received: 08/30/2019 Reported: 08/31/2019 Physicians: Tito Wolfe D.O. Specimen(s) Received STOMACH, BODY, EROSIONS Clinical History Abdominal pain, dyspepsia Postoperative diagnosis: Gastric erosion, gastritis Final Diagnosis STOMACH, BODY, EROSIONS, BIOPSY: GASTRIC BODY MUCOSA WITH MODERATE CHRONIC GASTRITIS, INTESTINAL METAPLASIA, AND MILD FOVEOLAR HYPERPLASIA. NO DYSPLASIA IDENTIFIED. IMMUNOHISTOCHEMICAL STAIN FOR H. PYLORI IS NEGATIVE. Electronically Signed Amberly Negrete M.D. Gross Description Received in formalin, labeled "biopsy erosion body of stomach" are 7 [place]ano, irregular portions of soft tissue ranging from 0.1-0.4 cm. in greatest dimension. The specimens are submitted in toto in one cassette. /08/30/2019 [facility]08/30/2019
== END 2019-08-29 15:17 | disposition home or self-care (01) ==
LOC: JASU-ENDO 12:12
PROVIDERS: ATTEND Internal Medicine Gastroenterology
PROC: 0DB68ZX Excision of Stomach, Via Natural or Artificial Opening Endoscopic, Diagnostic (ICD-10-PCS; principal; 2019-08-29 12:45)
DX: K29.50 Unspecified chronic gastritis without bleeding (principal)

== ENCOUNTER 2020-10-18 12:41 | Observation (INO) | payer OTHER, BC ==
[2020-10-18 13:07] VITALS: BMI 25.6
[2020-10-18 13:55] LABS: BASO % 0.4 % (0-2.0); EOS % 1.9 % (0-4.5); HEMATOCRIT 37.9 % (32.4-45.2); LYMPH % 24.4 % (8-40); MCH 31.7 pg (25.7-33.7); MCHC 34.3 g/dl (32.0-36.0); MEAN CELL VOLUME 92.5 fl (80-96); MONO % 7.8 % (3.8-10.2); NEUT % 65.5 % (42.8-82.8); PLATELET COUNT 143 K/MM3 (134-434); RBC 4.09 M/mm3 (3.60-5.2); WHITE BLOOD COUNT 4.4 K/mm3 (4.0-10.0)
[2020-10-18 14:06] LABS: INR 1.03 (0.83-1.09); PROTHROMBIN TIME (PATIENT) 12.5 SEC (9.7-13.0)
[2020-10-18 14:07] LABS: CHLORIDE 107 mmol/L (98-107); POTASSIUM 3.9 mmol/L (3.5-5.1); SODIUM 141 mmol/L (136-145)
[2020-10-18 14:09] LABS: ACTIVATED PTT 30.7 SECONDS (25.2-36.5); CALCIUM 9.6 mg/dL (8.5-10.1)
[2020-10-18 14:10] LABS: ANION GAP 8 MMOL/L (8-16); BLOOD UREA NITROGEN 27.3 mg/dL (7-18); CO2 26 mmol/L (21-32); GLUCOSE,RANDOM 90 mg/dL (74-106); MAGNESIUM 2.5 mg/dL (1.8-2.4)
[2020-10-18 14:13] LABS: SGOT/AST 16 U/L (15-37); SGPT/ALT 16 U/L (13-61)
[2020-10-18 14:15] LABS: BILIRUBIN,TOTAL 0.6 mg/dL (0.2-1); TOT PROT 7.2 g/dl (6.4-8.2)
[2020-10-18 14:16] LABS: ALK PHOS 69 U/L (45-117)
[2020-10-18 15:40] LABS: EPI CELLS 19 /uL (0-25.1); HYALINE CASTS 2 /uL (0-3.1); PH,URINE 8.5 (5.0-8.0); URINE APPEARANCE CLOUDY; URINE BACTERIA 19 /uL (0-1359); URINE BILIRUBIN NEGATIVE (NEGATIVE); URINE COLOR YELLOW; URINE GLUCOSE (UA) NEGATIVE (NEGATIVE); URINE KETONE TRACE (NEGATIVE); URINE LEUK ESTERASE TRACE (NEGATIVE); URINE NITRITE NEGATIVE (NEGATIVE); URINE PROTEIN NEGATIVE (NEGATIVE); URINE UROBILINOGEN 0.2 mg/dL (0.2-1.0); URINE WBC 54 /uL (0-25.8)
[2020-10-18] MEDS ORDERED: CEFTRIAXONE 1 GM/50 ML BAG ONE (16:35)
[2020-10-18] MEDS ORDERED: ESCITALOPRAM OXALATE 10 MG TABLET PO SCH (22:00)
[2020-10-18] MEDS ORDERED: ESCITALOPRAM OXALATE 10 MG TABLET ONE (22:05)
[2020-10-19 09:09] LABS: BASO % 0.5 % (0-2.0); EOS % 2.4 % (0-4.5); HEMATOCRIT 36.7 % (32.4-45.2); LYMPH % 30.2 % (8-40); MCH 32.9 pg (25.7-33.7); MCHC 35.4 g/dl (32.0-36.0); MEAN CELL VOLUME 92.8 fl (80-96); MEAN PLT VOLUME 7.7 fl (7.5-11.1); MONO % 8.2 % (3.8-10.2); NEUT % 58.7 % (42.8-82.8); PLATELET COUNT 154 K/MM3 (134-434); RBC 3.95 M/mm3 (3.60-5.2); RDW 13.3 % (11.6-15.6)
[2020-10-19] MEDS ORDERED: PT OWN MED DRAWER 7, Y5N ONE ×2 (09:41→10:11)
[2020-10-19 09:50] LABS: POTASSIUM 3.9 mmol/L (3.5-5.1)
[2020-10-19] MEDS ORDERED: METHIMAZOLE 5 MG TABLET (FP) PO SCH (10:00)
[2020-10-19] MEDS ORDERED: amLODIPine BESYLATE 2.5 MG TABLET (FP) PO SCH (10:00)
[2020-10-19] MEDS ORDERED: CALCIUM 500MG/VIT-D 200 UNITS COMBO TABLET (FP) PO SCH (10:00)
[2020-10-19] MEDS ORDERED: MULTIVITAMINS THER W-MINERALS COMBO TABLET (FP) PO SCH (10:00)
[2020-10-19] MEDS ORDERED: CLOPIDOGREL BISULFATE 75 MG TABLET (FP) PO SCH (10:00)
[2020-10-19] MEDS ORDERED: ENOXAPARIN NA (PORCINE) 40 MG/0.4 ML DISP.SYRIN SQ SCH (10:00)
[2020-10-19] MEDS ORDERED: ASPIRIN COATED 81 MG TABLET.EC PO SCH (10:00)
[2020-10-19 10:11] LABS: CALCIUM 8.9 mg/dL (8.5-10.1)
[2020-10-19 10:12] LABS: ALBUMIN 3.8 g/dl (3.4-5.0); MAGNESIUM 2.3 mg/dL (1.8-2.4)
[2020-10-19 10:15] LABS: CREATININE 0.8 mg/dL (0.55-1.3); PHOSPHOROUS 3.6 mg/dL (2.5-4.9)
[2020-10-19 10:16] LABS: BILIRUBIN,TOTAL 0.6 mg/dL (0.2-1); TOT PROT 6.9 g/dl (6.4-8.2)
[2020-10-19 15:36] VITALS: BP 133/74; PULSE 69; TEMP 98
[2020-10-20] MEDS ORDERED: amLODIPine BESYLATE 2.5 MG TABLET (FP) PO SCH (14:00)
== END 2020-10-19 17:17 | disposition home or self-care (01) ==
LOC: JER 12:41 → JERBED 16:17 → INTOOBSV 17:55 → OBSVTOIN 17:55 → J4S 10-19 02:07
PROVIDERS: ADMIT Internal Medicine; ATTEND Nurse Practitioner Acute Care
DX: I25.10 Atherosclerotic heart disease of native coronary artery without angina pectoris (principal); I31.9 Disease of pericardium, unspecified; I10 Essential (primary) hypertension; I71.9 Aortic aneurysm of unspecified site, without rupture; I95.1 Orthostatic hypotension; W18.39XA Other fall on same level, initial encounter; Y93.89 Activity, other specified; Y92.009 Unspecified place in unspecified non-institutional (private) residence as the place of occurrence of the external cause; S09.90XA Unspecified injury of head, initial encounter; E78.5 Hyperlipidemia, unspecified; Z95.5 Presence of coronary angioplasty implant and graft; Z23 Encounter for immunization; Z20.822 Contact with and (suspected) exposure to COVID-19; F32.9 Major depressive disorder, single episode, unspecified; Z95.2 Presence of prosthetic heart valve; E05.90 Thyrotoxicosis, unspecified without thyrotoxic crisis or storm
CPT/HCPCS: 36415; 70450-TC; 71045-TC-FY; 72125-TC; 80053; 81003; 82550; 83735; 84100; 84443; 84484; 85025; 85610; 85730; 87086; 93005; 93010; 96372; 96374; 99285-25; C9803; G0378; U0003

== ENCOUNTER 2023-01-15 14:06 | Inpatient (IN) | payer OTHER, BC ==
[2023-01-15 14:16] VITALS: BMI 21.9
[2023-01-15] MEDS ORDERED: LACTATED RINGERS SOLUTION 1000 ML INFUS.BAG IV ONE (15:03)
[2023-01-15 17:06] LABS: BASO % 0.4 % (0-2.0); EOS % 0.2 % (0-4.5); HEMATOCRIT 41.3 % (32.4-45.2); HEMOGLOBIN 14.1 GM/dL (10.7-15.3); LYMPH % 25.9 % (8-40); MCH 31.1 pg (25.7-33.7); MEAN CELL VOLUME 91.4 fl (80-96); MEAN PLT VOLUME 7.7 fl (7.5-11.1); MONO % 15.3 % (3.8-10.2); NEUT % 58.2 % (42.8-82.8); PLATELET COUNT 145 10^3/uL (134-434); RBC 4.52 M/mm3 (3.60-5.2); RDW 13.2 % (11.6-15.6); WHITE BLOOD COUNT 4.2 K/mm3 (4.0-10.0)
[2023-01-15 17:14] LABS: INR 1.06 (0.83-1.09); PROTHROMBIN TIME (PATIENT) 12.3 SEC (9.7-13.0)
[2023-01-15 17:16] LABS: ACTIVATED PTT 34.1 SECONDS (25.2-36.5)
[2023-01-15 17:24] LABS: POTASSIUM 4.3 mmol/L (3.5-5.1)
[2023-01-15 17:26] LABS: CALCIUM 8.8 mg/dL (8.5-10.1)
[2023-01-15 17:27] LABS: ALBUMIN 3.8 g/dl (3.4-5.0); BLOOD UREA NITROGEN 28.9 mg/dL (7-18); MAGNESIUM 2.4 mg/dL (1.8-2.4)
[2023-01-15 17:29] LABS: CREATININE 1.3 mg/dL (0.55-1.3)
[2023-01-15 17:32] LABS: BILIRUBIN,TOTAL 0.4 mg/dL (0.2-1); TOT PROT 7.4 g/dl (6.4-8.2)
[2023-01-15] MEDS ORDERED: DEXAMETHASONE SOD PHOSPHATE 10 MG/1 ML VIAL IVPUSH ONE (17:59)
[2023-01-15] MEDS ORDERED: ACETAMINOPHEN 1000 MG/100 ML BAG IVPB ONE (17:59)
[2023-01-15] MEDS ORDERED: DEXAMETHASONE SOD PHOSPHATE 10 MG/1 ML VIAL ONE (18:36)
[2023-01-15] MEDS ORDERED: ACETAMINOPHEN INJECTION 100 ML IVPB ONE (18:37)
[2023-01-15] MEDS ORDERED: ACETAMINOPHEN 325 MG TABLET (FP) PO PRN (18:54)
[2023-01-15] MEDS ORDERED: SODIUM CHLORIDE 1,000 ML IV SCH (19:00)
[2023-01-15] MEDS ORDERED: REMDESIVIR 200 MG in SODIUM CHLORIDE 250 ML IVPB ONE (20:00)
[2023-01-15] MEDS: ESCITALOPRAM OXALATE 10 MG TABLET PO SCH (21:38)
[2023-01-15] MEDS: APIXABAN 5 MG TABLET PO SCH (21:38)
[2023-01-15] MEDS: FENOFIBRIC ACID 45 MG CAP PO SCH (21:39)
[2023-01-15] MEDS: DIVALPROEX SODIUM 250 MG TABLET E.C. PO SCH (21:39)
[2023-01-15] MEDS ORDERED: METOPROLOL TARTRATE 25 MG TABLET (FP) PO SCH ×2 (22:00)
[2023-01-16] MEDS ORDERED: METOPROLOL TARTRATE 25 MG TABLET (FP) PO SCH (06:18)
[2023-01-16 07:39] LABS: HEMOGLOBIN 13.5 GM/dL (10.7-15.3); MCH 30.8 pg (25.7-33.7); MCHC 32.8 g/dl (32.0-36.0); MEAN CELL VOLUME 93.7 fl (80-96); MEAN PLT VOLUME 7.6 fl (7.5-11.1); PLATELET COUNT 145 10^3/uL (134-434); RBC 4.37 M/mm3 (3.60-5.2); RDW 13.3 % (11.6-15.6)
[2023-01-16 07:47] LABS: WHITE BLOOD COUNT 1.9 K/mm3 (4.0-10.0)
[2023-01-16 08:05] LABS: CALCIUM 8.5 mg/dL (8.5-10.1)
[2023-01-16 08:06] LABS: BLOOD UREA NITROGEN 25.3 mg/dL (7-18)
[2023-01-16 08:09] LABS: CREATININE 0.9 mg/dL (0.55-1.3)
[2023-01-16 08:22] LABS: POTASSIUM 4.7 mmol/L (3.5-5.1)
[2023-01-16] MEDS: DIVALPROEX SODIUM 250 MG TABLET E.C. PO SCH ×2 (09:35→21:30)
[2023-01-16] MEDS: ASPIRIN COATED 81 MG TABLET.EC PO SCH (09:35)
[2023-01-16] MEDS: METOPROLOL TARTRATE 25 MG TABLET (FP) PO SCH ×2 (09:36→21:27)
[2023-01-16] MEDS: APIXABAN 5 MG TABLET PO SCH ×2 (09:36→21:27)
[2023-01-16] MEDS: amLODIPine BESYLATE 2.5 MG TABLET (FP) PO SCH (09:37)
[2023-01-16] MEDS: METHIMAZOLE 5 MG TABLET PO SCH (09:38)
[2023-01-16] MEDS ORDERED: REMDESIVIR 100 MG in SODIUM CHLORIDE 250 ML IVPB SCH ×2 (10:00→21:00)
[2023-01-16] MEDS ORDERED: DEXAMETHASONE 4 MG TABLET (FP) PO SCH (10:00)
[2023-01-16 12:19] LABS: BASO % 0.3 % (0-2.0); HEMOGLOBIN 12.1 GM/dL (10.7-15.3); LYMPH % 28.2 % (8-40); MCH 31.1 pg (25.7-33.7); MCHC 33.6 g/dl (32.0-36.0); MEAN CELL VOLUME 92.3 fl (80-96); MEAN PLT VOLUME 7.7 fl (7.5-11.1); MONO % 10.8 % (3.8-10.2); NEUT % 60.7 % (42.8-82.8); PLATELET COUNT 136 10^3/uL (134-434); RDW 13.2 % (11.6-15.6); WHITE BLOOD COUNT 2.5 K/mm3 (4.0-10.0)
[2023-01-16] MEDS: ESCITALOPRAM OXALATE 10 MG TABLET PO SCH (21:27)
[2023-01-16] MEDS: FENOFIBRIC ACID 45 MG CAP PO SCH (21:28)
[2023-01-17] MEDS: amLODIPine BESYLATE 2.5 MG TABLET (FP) PO SCH (09:33)
[2023-01-17] MEDS: APIXABAN 5 MG TABLET PO SCH ×2 (09:33→22:04)
[2023-01-17] MEDS: ASPIRIN COATED 81 MG TABLET.EC PO SCH (09:33)
[2023-01-17] MEDS: DIVALPROEX SODIUM 250 MG TABLET E.C. PO SCH ×2 (09:33→22:04)
[2023-01-17] MEDS: METHIMAZOLE 5 MG TABLET PO SCH (09:36)
[2023-01-17] MEDS ORDERED: DEXAMETHASONE 4 MG TABLET (FP) PO SCH (10:00)
[2023-01-17] MEDS ORDERED: ACETAMINOPHEN 325 MG TABLET (FP) PO PRN (16:55)
[2023-01-17] MEDS ORDERED: REMDESIVIR 100 MG in SODIUM CHLORIDE 250 ML IVPB SCH (21:00)
[2023-01-17] MEDS ORDERED: ESCITALOPRAM OXALATE 10 MG TABLET PO SCH (22:00)
[2023-01-17] MEDS ORDERED: FENOFIBRIC ACID 45 MG CAP PO SCH (22:00)
[2023-01-18 07:32] LABS: BASO % 0.3 % (0-2.0); HEMATOCRIT 37.1 % (32.4-45.2); HEMOGLOBIN 12.7 GM/dL (10.7-15.3); LYMPH % 22.3 % (8-40); MCHC 34.2 g/dl (32.0-36.0); MEAN CELL VOLUME 93.7 fl (80-96); MEAN PLT VOLUME 8.3 fl (7.5-11.1); MONO % 5.5 % (3.8-10.2); NEUT % 71.9 % (42.8-82.8); PLATELET COUNT 139 10^3/uL (134-434); RBC 3.96 M/mm3 (3.60-5.2); RDW 12.8 % (11.6-15.6); WHITE BLOOD COUNT 4.3 K/mm3 (4.0-10.0)
[2023-01-18 07:47] LABS: POTASSIUM 3.9 mmol/L (3.5-5.1)
[2023-01-18 08:02] LABS: ALBUMIN 3.3 g/dl (3.4-5.0); CALCIUM 8.7 mg/dL (8.5-10.1)
[2023-01-18 08:07] LABS: BILIRUBIN,TOTAL 0.4 mg/dL (0.2-1); CREATININE 0.8 mg/dL (0.55-1.3); TOT PROT 6.6 g/dl (6.4-8.2)
[2023-01-18] MEDS: DIVALPROEX SODIUM 250 MG TABLET E.C. PO SCH (09:44)
[2023-01-18] MEDS: APIXABAN 5 MG TABLET PO SCH (09:44)
[2023-01-18] MEDS ORDERED: amLODIPine BESYLATE 2.5 MG TABLET (FP) PO SCH (10:00)
[2023-01-18] MEDS ORDERED: METHIMAZOLE 5 MG TABLET PO SCH (10:00)
[2023-01-18] MEDS ORDERED: ASPIRIN COATED 81 MG TABLET.EC PO SCH (10:00)
[2023-01-18 12:23] VITALS: RESP 18
[2023-01-18 13:56] VITALS: PULSE 75
[2023-01-18 18:26] VITALS: BP 147/83; TEMP 97.9
== END 2023-01-18 18:39 | disposition home or self-care (01) | DRG 179 ==
LOC: JER 14:06 → JERBED 18:15 → J5S 19:29 → OBSVTOIN 01-17 13:59 → J4S 01-17 15:46
PROVIDERS: ADMIT Internal Medicine
PROC: XW033E5 Introduction of Remdesivir Anti-infective into Peripheral Vein, Percutaneous Approach, New Technology Group 5 (ICD-10-PCS; principal; 2023-01-17)
DX: U07.1 COVID-19 (principal); I10 Essential (primary) hypertension; E78.5 Hyperlipidemia, unspecified; I25.10 Atherosclerotic heart disease of native coronary artery without angina pectoris; I48.91 Unspecified atrial fibrillation; Z85.038 Personal history of other malignant neoplasm of large intestine; E86.0 Dehydration; Z95.5 Presence of coronary angioplasty implant and graft
CPT/HCPCS: 0241U-QW; 36415; 71045-TC-FY; 80048; 80053; 80061; 83735; 84443; 84484; 85025; 85027; 85610; 85730; 86140; 87635; 93005; 93010; 94761; 97116-GP; 97162-GP; 99285-25; C9399; G0378; J1100

== ENCOUNTER 2023-06-29 17:25 | Emergency (ER) | payer OTHER, BC ==
[2023-06-29 17:34] VITALS: TEMP 98.3; BMI 23.3
[2023-06-29] MEDS ORDERED: ACETAMINOPHEN 1000 MG/100 ML BAG IVPB ONE (18:21)
[2023-06-29] MEDS ORDERED: SODIUM CHLORIDE 0.9% 500 ML INFUS.BAG IV ONE (18:21)
[2023-06-29 19:11] LABS: EPI CELLS 3 /uL (0-25.1); HYALINE CASTS 0 /uL (0-3.1); URINE APPEARANCE CLEAR; URINE BACTERIA 47 /uL (0-1359); URINE BILIRUBIN NEGATIVE (NEGATIVE); URINE COLOR YELLOW; URINE GLUCOSE (UA) NEGATIVE (NEGATIVE); URINE KETONE NEGATIVE (NEGATIVE); URINE LEUK ESTERASE 3+ (NEGATIVE); URINE NITRITE NEGATIVE (NEGATIVE); URINE PROTEIN NEGATIVE (NEGATIVE); URINE RBC 4 /uL (0-23.9); URINE UROBILINOGEN 0.2 mg/dL (0.2-1.0); URINE WBC 37 /uL (0-25.8)
[2023-06-29 19:42] LABS: BASO % 0.7 % (0-2.0); EOS % 1.6 % (0-4.5); HEMATOCRIT 37.6 % (32.4-45.2); HEMOGLOBIN 12.9 GM/dL (10.7-15.3); LYMPH % 32.4 % (8-40); MCH 30.5 pg (25.7-33.7); MCHC 34.4 g/dl (32.0-36.0); MEAN CELL VOLUME 88.7 fl (80-96); MEAN PLT VOLUME 7.4 fl (7.5-11.1); NEUT % 56.3 % (42.8-82.8); PLATELET COUNT 170 10^3/uL (134-434); RBC 4.24 M/mm3 (3.60-5.2); RDW 13.2 % (11.6-15.6); WHITE BLOOD COUNT 5.1 K/mm3 (4.0-10.0)
[2023-06-29] MEDS ORDERED: ACETAMINOPHEN INJECTION 100 ML IVPB ONE (19:42)
[2023-06-29 20:10] LABS: POTASSIUM 4.3 mmol/L (3.5-5.1)
[2023-06-29 20:11] LABS: ALBUMIN 4.1 g/dl (3.4-5.0); CALCIUM 9.3 mg/dL (8.5-10.1)
[2023-06-29] MEDS ORDERED: CEPHALEXIN MONOHYDRATE 500 MG CAPSULE (UD) PO ONE (20:11)
[2023-06-29 20:12] LABS: BLOOD UREA NITROGEN 29.8 mg/dL (7-18)
[2023-06-29 20:15] LABS: CREATININE 1.2 mg/dL (0.55-1.3)
[2023-06-29] MEDS ORDERED: CEPHALEXIN MONOHYDRATE 500 MG CAPSULE (UD) ONE (20:15)
[2023-06-29 20:16] LABS: BILIRUBIN,TOTAL 0.5 mg/dL (0.2-1); TOT PROT 7.1 g/dl (6.4-8.2)
[2023-06-29 21:10] VITALS: BP 150/74; PULSE 62; RESP 18
== END 2023-06-29 21:31 | disposition home or self-care (01) ==
LOC: JER 17:25
PROC: 3E033NZ Introduction of Analgesics, Hypnotics, Sedatives into Peripheral Vein, Percutaneous Approach (ICD-10-PCS; principal; 2023-06-29)
DX: N39.0 Urinary tract infection, site not specified (principal); J06.9 Acute upper respiratory infection, unspecified; B34.9 Viral infection, unspecified; R42 Dizziness and giddiness; R05.9 Cough, unspecified; R53.81 Other malaise; R11.0 Nausea; I10 Essential (primary) hypertension; R63.8 Other symptoms and signs concerning food and fluid intake; Z20.822 Contact with and (suspected) exposure to COVID-19
CPT/HCPCS: 0241U-QW; 36415; 71045-TC-FY; 80053; 81003; 84484; 85025; 87086; 93005; 93010; 96374; 99285-25

== ENCOUNTER 2023-07-20 06:02 | Observation (INO) | payer OTHER, BC ==
[2023-07-20] MEDS ORDERED: MECLIZINE HCL 25 MG TABLET (FP) PO ONE (07:38)
[2023-07-20] MEDS ORDERED: SODIUM CHLORIDE 0.9% 500 ML INFUS.BAG IV ONE (07:40)
[2023-07-20 08:28] LABS: BASO % 0.3 % (0-2.0); EOS % 0.4 % (0-4.5); HEMATOCRIT 38.7 % (32.4-45.2); HEMOGLOBIN 13.4 GM/dL (10.7-15.3); LYMPH % 20.6 % (8-40); MCH 31.3 pg (25.7-33.7); MCHC 34.5 g/dl (32.0-36.0); MEAN CELL VOLUME 90.6 fl (80-96); MEAN PLT VOLUME 7.1 fl (7.5-11.1); MONO % 5.9 % (3.8-10.2); NEUT % 72.8 % (42.8-82.8); PLATELET COUNT 171 10^3/uL (134-434); RBC 4.27 M/mm3 (3.60-5.2); RDW 13.3 % (11.6-15.6); WHITE BLOOD COUNT 5.1 K/mm3 (4.0-10.0)
[2023-07-20] MEDS ORDERED: MECLIZINE HCL 25 MG TABLET (FP) ONE (08:34)
[2023-07-20 08:43] LABS: INR 1.85 (0.83-1.09); PROTHROMBIN TIME (PATIENT) 21.3 SEC (9.7-13.0)
[2023-07-20 08:46] LABS: ACTIVATED PTT 42.7 SECONDS (25.2-36.5)
[2023-07-20 08:50] LABS: PH,URINE 8.5 (5.0-8.0); URINE APPEARANCE CLOUDY; URINE BILIRUBIN NEGATIVE (NEGATIVE); URINE COLOR YELLOW; URINE GLUCOSE (UA) NEGATIVE (NEGATIVE); URINE KETONE NEGATIVE (NEGATIVE); URINE LEUK ESTERASE NEGATIVE (NEGATIVE); URINE NITRITE NEGATIVE (NEGATIVE); URINE PROTEIN NEGATIVE (NEGATIVE); URINE UROBILINOGEN 0.2 mg/dL (0.2-1.0)
[2023-07-20 08:53] LABS: POTASSIUM 4.1 mmol/L (3.5-5.1)
[2023-07-20 08:55] LABS: CALCIUM 9.8 mg/dL (8.5-10.1)
[2023-07-20 08:56] LABS: ALBUMIN 4.3 g/dl (3.4-5.0); BLOOD UREA NITROGEN 23.2 mg/dL (7-18); MAGNESIUM 2.2 mg/dL (1.8-2.4)
[2023-07-20 09:00] LABS: BILIRUBIN,TOTAL 0.7 mg/dL (0.2-1); TOT PROT 7.8 g/dl (6.4-8.2)
[2023-07-20] MEDS ORDERED: amLODIPine BESYLATE 2.5 MG TABLET (FP) PO ONE (09:00)
[2023-07-20] MEDS ORDERED: amLODIPine BESYLATE 2.5 MG TABLET (FP) ONE (10:12)
[2023-07-20] MEDS: SODIUM CHLORIDE 1,000 ML IV SCH (11:03)
[2023-07-20] MEDS ORDERED: ESCITALOPRAM OXALATE 10 MG TABLET PO SCH (12:30)
[2023-07-20] MEDS ORDERED: CITALOPRAM HYDROBROMIDE 10 MG TABLET PO SCH (12:45)
[2023-07-20] MEDS ORDERED: CITALOPRAM HYDROBROMIDE 10 MG TABLET ONE ×2 (12:59→13:00)
[2023-07-20] MEDS: METHIMAZOLE 5 MG TABLET PO SCH (14:16)
[2023-07-20 18:38] VITALS: BMI 26.4
[2023-07-20] MEDS: RIVAROXABAN 15 MG TABLET PO SCH (21:30)
[2023-07-20] MEDS: FENOFIBRIC ACID 45 MG CAP PO SCH (21:47)
[2023-07-21 07:17] LABS: HEMATOCRIT 36.9 % (32.4-45.2); HEMOGLOBIN 12.6 GM/dL (10.7-15.3); MCH 31.2 pg (25.7-33.7); MCHC 34.1 g/dl (32.0-36.0); MEAN CELL VOLUME 91.5 fl (80-96); MEAN PLT VOLUME 7.4 fl (7.5-11.1); PLATELET COUNT 160 10^3/uL (134-434); RBC 4.04 M/mm3 (3.60-5.2); RDW 13.1 % (11.6-15.6); WHITE BLOOD COUNT 4.1 K/mm3 (4.0-10.0)
[2023-07-21 07:42] LABS: CHLORIDE 108 mmol/L (98-107); SODIUM 141 mmol/L (136-145)
[2023-07-21 07:46] LABS: CALCIUM 8.5 mg/dL (8.5-10.1)
[2023-07-21 07:47] LABS: ANION GAP 5 mmol/L (4-13); BLOOD UREA NITROGEN 21.7 mg/dL (7-18); CO2 27 mmol/L (21-32); GLUCOSE,RANDOM 87 mg/dL (74-106)
[2023-07-21 07:51] LABS: CREATININE 0.9 mg/dL (0.55-1.3)
[2023-07-21] MEDS: METHIMAZOLE 5 MG TABLET PO SCH (09:36)
[2023-07-21] MEDS: amLODIPine BESYLATE 2.5 MG TABLET (FP) PO SCH (09:36)
[2023-07-21] MEDS: SODIUM CHLORIDE 1,000 ML IV SCH (11:58)
[2023-07-21] MEDS ORDERED: SODIUM CHLORIDE 1,000 ML IV SCH (16:15)
[2023-07-21] MEDS: CITALOPRAM HYDROBROMIDE 10 MG TABLET PO SCH (19:05)
[2023-07-21] MEDS: RIVAROXABAN 15 MG TABLET PO SCH (21:26)
[2023-07-21] MEDS: FENOFIBRIC ACID 45 MG CAP PO SCH (21:26)
[2023-07-21] MEDS ORDERED: MIRTAZAPINE 15 MG TABLET (FP) PO SCH (22:00)
[2023-07-22 08:12] LABS: HEMATOCRIT 35.7 % (32.4-45.2); HEMOGLOBIN 12.4 GM/dL (10.7-15.3); MCH 31.7 pg (25.7-33.7); MCHC 34.8 g/dl (32.0-36.0); MEAN PLT VOLUME 7.4 fl (7.5-11.1); PLATELET COUNT 153 10^3/uL (134-434); RBC 3.92 M/mm3 (3.60-5.2); RDW 13.1 % (11.6-15.6); WHITE BLOOD COUNT 3.6 K/mm3 (4.0-10.0)
[2023-07-22 09:23] LABS: CHLORIDE 108 mmol/L (98-107); POTASSIUM 3.8 mmol/L (3.5-5.1); SODIUM 141 mmol/L (136-145)
[2023-07-22] MEDS: amLODIPine BESYLATE 2.5 MG TABLET (FP) PO SCH (09:30)
[2023-07-22 09:31] LABS: ALBUMIN 3.6 g/dl (3.4-5.0); BLOOD UREA NITROGEN 19.2 mg/dL (7-18); CALCIUM 8.8 mg/dL (8.5-10.1)
[2023-07-22] MEDS: METHIMAZOLE 5 MG TABLET PO SCH (09:31)
[2023-07-22] MEDS: CITALOPRAM HYDROBROMIDE 10 MG TABLET PO SCH (09:31)
[2023-07-22 09:32] LABS: ANION GAP 7 mmol/L (4-13); CO2 26 mmol/L (21-32)
[2023-07-22 09:33] LABS: GLUCOSE,RANDOM 92 mg/dL (74-106)
[2023-07-22 09:36] LABS: CREATININE 0.9 mg/dL (0.55-1.3); SGOT/AST 16 U/L (15-37); SGPT/ALT 14 U/L (13-61)
[2023-07-22 09:37] LABS: BILIRUBIN,TOTAL 0.9 mg/dL (0.2-1); TOT PROT 6.8 g/dl (6.4-8.2)
[2023-07-22 09:38] LABS: ALK PHOS 58 U/L (45-117)
[2023-07-22] MEDS ORDERED: TETRAHYDROZOLINE HCL EYE DROPS OD PRN (17:29)
[2023-07-22] MEDS: FENOFIBRIC ACID 45 MG CAP PO SCH (22:03)
[2023-07-22] MEDS: RIVAROXABAN 15 MG TABLET PO SCH (22:03)
[2023-07-23] MEDS: amLODIPine BESYLATE 2.5 MG TABLET (FP) PO SCH (10:01)
[2023-07-23] MEDS: CITALOPRAM HYDROBROMIDE 10 MG TABLET PO SCH (10:02)
[2023-07-23] MEDS: METHIMAZOLE 5 MG TABLET PO SCH (10:02)
[2023-07-23 10:57] VITALS: TEMP 98.2
[2023-07-23 14:54] VITALS: BP 142/86; PULSE 72; RESP 18
[2023-07-23] MEDS ORDERED: CITALOPRAM HYDROBROMIDE 10 MG TABLET PO SCH (22:00)
== END 2023-07-23 15:50 | disposition home or self-care (01) ==
LOC: JER 06:02 → JERBED 08:13 → J4S 18:28
PROVIDERS: ADMIT Internal Medicine; ATTEND Internal Medicine
PROC: 3E0337Z Introduction of Electrolytic and Water Balance Substance into Peripheral Vein, Percutaneous Approach (ICD-10-PCS; principal; 2023-07-20)
DX: R42 Dizziness and giddiness (principal); I25.10 Atherosclerotic heart disease of native coronary artery without angina pectoris; R94.31 Abnormal electrocardiogram [ECG] [EKG]; I11.0 Hypertensive heart disease with heart failure; E78.5 Hyperlipidemia, unspecified; I48.91 Unspecified atrial fibrillation; E05.90 Thyrotoxicosis, unspecified without thyrotoxic crisis or storm; I71.9 Aortic aneurysm of unspecified site, without rupture; Z79.01 Long term (current) use of anticoagulants; F32.A Depression, unspecified; Z85.038 Personal history of other malignant neoplasm of large intestine
CPT/HCPCS: 36415; 70450-TC; 70496-TC; 70498-TC; 70551-TC; 71045-TC-FY; 80048; 80053; 81003; 83735; 84443; 84484; 85025; 85027; 85610; 85651; 85730; 86140; 86850; 86900; 86901; 87086; 93005; 93010; 93306-TC; 96360; 96361; 99285-25; G0378; Q9967

== ENCOUNTER 2024-06-02 10:58 | Inpatient (IN) | payer OTHER, BC ==
[2024-06-02 11:46] LABS: BASO % 0.6 % (0-2.0); EOS % 2.2 % (0-4.5); HEMATOCRIT 38.8 % (32.4-45.2); HEMOGLOBIN 13.4 GM/dL (10.7-15.3); LYMPH % 29.3 % (8-40); MCH 30.6 pg (25.7-33.7); MCHC 34.5 g/dl (32.0-36.0); MEAN CELL VOLUME 88.8 fl (80-96); MEAN PLT VOLUME 6.7 fl (7.5-11.1); MONO % 8.9 % (3.8-10.2); PLATELET COUNT 183 10^3/uL (134-434); RBC 4.36 M/mm3 (3.60-5.2); RDW 14.2 % (11.6-15.6); WHITE BLOOD COUNT 4.2 K/mm3 (4.0-10.0)
[2024-06-02 11:52] LABS: INR 1.19 (0.83-1.09); PROTHROMBIN TIME (PATIENT) 13.6 SEC (9.7-13.0)
[2024-06-02 11:55] LABS: ACTIVATED PTT 36.9 SECONDS (25.2-36.5)
[2024-06-02 12:05] LABS: POTASSIUM 4.5 mmol/L (3.5-5.1)
[2024-06-02 12:08] LABS: ALBUMIN 4.1 g/dl (3.4-5.0); CALCIUM 9.5 mg/dL (8.5-10.1)
[2024-06-02 12:09] LABS: BLOOD UREA NITROGEN 19.5 mg/dL (7-18)
[2024-06-02 12:13] LABS: BILIRUBIN,TOTAL 0.7 mg/dL (0.2-1); CREATININE 1.3 mg/dL (0.55-1.3); TOT PROT 7.4 g/dl (6.4-8.2)
[2024-06-02 12:43] LABS: EPI CELLS 5 /uL (0-25.1); HYALINE CASTS 0 /uL (0-3.1); PH,URINE 8.5 (5.0-8.0); URINE APPEARANCE CLOUDY; URINE BACTERIA 43 /uL (0-1359); URINE BILIRUBIN NEGATIVE (NEGATIVE); URINE COLOR YELLOW; URINE GLUCOSE (UA) NEGATIVE (NEGATIVE); URINE KETONE NEGATIVE (NEGATIVE); URINE LEUK ESTERASE TRACE (NEGATIVE); URINE NITRITE NEGATIVE (NEGATIVE); URINE PROTEIN NEGATIVE (NEGATIVE); URINE RBC 11 /uL (0-23.9); URINE UROBILINOGEN 0.2 mg/dL (0.2-1.0); URINE WBC 20 /uL (0-25.8)
[2024-06-02] MEDS: RIVAROXABAN 15 MG TABLET PO SCH (18:42)
[2024-06-02 21:02] VITALS: BMI 25.2
[2024-06-02] MEDS: CALCIUM (OYSTER SHELL) 500 MG TABLET (FP) PO SCH (22:17)
[2024-06-02] MEDS: FENOFIBRIC ACID 45 MG CAP PO SCH (22:17)
[2024-06-02] MEDS: ATORVASTATIN CA 40 MG TABLET (FP) PO SCH (22:17)
[2024-06-03] MEDS: hydrALAZINE HCL 20 MG/ML VIAL IVPB ONE (01:36)
[2024-06-03 08:36] LABS: BASO % 0.5 % (0-2.0); EOS % 2.4 % (0-4.5); HEMATOCRIT 37.7 % (32.4-45.2); HEMOGLOBIN 12.9 GM/dL (10.7-15.3); LYMPH % 28.7 % (8-40); MCH 30.9 pg (25.7-33.7); MCHC 34.1 g/dl (32.0-36.0); MEAN CELL VOLUME 90.5 fl (80-96); MEAN PLT VOLUME 7.4 fl (7.5-11.1); MONO % 9.5 % (3.8-10.2); NEUT % 58.9 % (42.8-82.8); PLATELET COUNT 174 10^3/uL (134-434); RBC 4.17 M/mm3 (3.60-5.2); RDW 14.2 % (11.6-15.6); WHITE BLOOD COUNT 4.7 K/mm3 (4.0-10.0)
[2024-06-03 08:46] LABS: POTASSIUM 3.8 mmol/L (3.5-5.1)
[2024-06-03 08:51] LABS: BLOOD UREA NITROGEN 21.8 mg/dL (7-18); CALCIUM 9.9 mg/dL (8.5-10.1)
[2024-06-03 08:54] LABS: CREATININE 1.2 mg/dL (0.55-1.3)
[2024-06-03] MEDS ORDERED: FOLIC ACID PO SCH (10:00)
[2024-06-03] MEDS ORDERED: [UNRECOGNIZED DRUG - OTHER] PO SCH (10:00)
[2024-06-03] MEDS ORDERED: IRON PS COMPLEX PO SCH (10:00)
[2024-06-03] MEDS ORDERED: B12 PO SCH (10:00)
[2024-06-03] MEDS: LACTOBACILLUS ACIDOPHILUS 1 TABLET PO SCH (10:51)
[2024-06-03] MEDS: CITALOPRAM HYDROBROMIDE 10 MG TABLET PO SCH (10:51)
[2024-06-03] MEDS: MULTIVITAMINS THER W-MINERALS COMBO TABLET (FP) PO SCH (10:52)
[2024-06-03] MEDS: METHIMAZOLE 5 MG TABLET PO SCH (10:52)
[2024-06-03] MEDS: buPROPion HCL 100 MG TABLET PO SCH (10:52)
[2024-06-03] MEDS: ATORVASTATIN CA 80 MG TABLET (FP) PO SCH (21:47)
[2024-06-04 08:29] LABS: BASO % 0.4 % (0-2.0); HEMATOCRIT 38.8 % (32.4-45.2); HEMOGLOBIN 13.2 GM/dL (10.7-15.3); LYMPH % 25.1 % (8-40); MCH 30.9 pg (25.7-33.7); MEAN PLT VOLUME 7.3 fl (7.5-11.1); MONO % 8.6 % (3.8-10.2); NEUT % 63.9 % (42.8-82.8); PLATELET COUNT 167 10^3/uL (134-434); RBC 4.26 M/mm3 (3.60-5.2); RDW 13.9 % (11.6-15.6); WHITE BLOOD COUNT 4.7 K/mm3 (4.0-10.0)
[2024-06-04 08:54] LABS: ALBUMIN 4.2 g/dl (3.4-5.0); BLOOD UREA NITROGEN 21.8 mg/dL (7-18)
[2024-06-04 08:57] LABS: CALCIUM 9.6 mg/dL (8.5-10.1)
[2024-06-04 08:59] LABS: BILIRUBIN,TOTAL 0.7 mg/dL (0.2-1); TOT PROT 7.2 g/dl (6.4-8.2)
[2024-06-04 09:00] LABS: CREATININE 1.1 mg/dL (0.55-1.3)
[2024-06-04 09:37] LABS: ERYTHROCYTE SEDIMENTATION RATE 21 mm/hr (0-30)
[2024-06-04] MEDS ORDERED: amLODIPine BESYLATE 5 MG TABLET (FP) PO SCH (10:00)
[2024-06-04] MEDS: MAGNESIUM CITRATE AND OXIDE 250 MG PO SCH (11:00)
[2024-06-04] MEDS: [UNRECOGNIZED DRUG - OTHER] PO SCH (11:00)
[2024-06-04] MEDS: amLODIPine BESYLATE 2.5 MG TABLET (FP) PO SCH (12:38)
[2024-06-04] MEDS ORDERED: clonazePAM 0.5 MG TABLET PO PRN (15:01)
[2024-06-04] MEDS: clonazePAM 0.5 MG TABLET PO SCH (21:43)
[2024-06-04] MEDS: levETIRAcetam 250 MG TABLET PO SCH (21:43)
[2024-06-05 09:37] LABS: HEMATOCRIT 37.9 % (32.4-45.2); HEMOGLOBIN 13.2 GM/dL (10.7-15.3); MCH 31.2 pg (25.7-33.7); MCHC 34.8 g/dl (32.0-36.0); MEAN CELL VOLUME 89.7 fl (80-96); MEAN PLT VOLUME 7.3 fl (7.5-11.1); PLATELET COUNT 162 10^3/uL (134-434); RBC 4.22 M/mm3 (3.60-5.2); RDW 14.2 % (11.6-15.6); WHITE BLOOD COUNT 3.9 K/mm3 (4.0-10.0)
[2024-06-05 09:46] LABS: POTASSIUM 3.9 mmol/L (3.5-5.1)
[2024-06-05 09:48] LABS: CALCIUM 9.2 mg/dL (8.5-10.1)
[2024-06-05 09:49] LABS: ALBUMIN 3.9 g/dl (3.4-5.0); BLOOD UREA NITROGEN 24.1 mg/dL (7-18)
[2024-06-05 09:52] LABS: CREATININE 1.1 mg/dL (0.55-1.3)
[2024-06-05 09:53] LABS: BILIRUBIN,TOTAL 0.7 mg/dL (0.2-1); TOT PROT 6.9 g/dl (6.4-8.2)
[2024-06-05 15:16] VITALS: BP 149/81; PULSE 78; RESP 18; TEMP 97.4
== END 2024-06-05 19:35 | disposition home or self-care (01) | DRG 66 ==
LOC: JER 10:58 → JERBED 13:01 → J4S 18:14 → OBSVTOIN 06-03 11:30
PROVIDERS: ADMIT Internal Medicine; ATTEND Internal Medicine
DX: I63.81 Other cerebral infarction due to occlusion or stenosis of small artery (principal); I69.320 Aphasia following cerebral infarction; I10 Essential (primary) hypertension; I65.23 Occlusion and stenosis of bilateral carotid arteries; I48.91 Unspecified atrial fibrillation; E05.90 Thyrotoxicosis, unspecified without thyrotoxic crisis or storm; R29.810 Facial weakness; R47.81 Slurred speech; E78.5 Hyperlipidemia, unspecified; I25.10 Atherosclerotic heart disease of native coronary artery without angina pectoris; K21.9 Gastro-esophageal reflux disease without esophagitis; E78.00 Pure hypercholesterolemia, unspecified; Z85.038 Personal history of other malignant neoplasm of large intestine; Z95.5 Presence of coronary angioplasty implant and graft; Z95.2 Presence of prosthetic heart valve
CPT/HCPCS: 36415; 70450-TC; 70496-TC; 70498-TC; 70551-TC; 80048; 80053; 80061; 81003; 82607; 82962; 83090; 84436; 84443; 84484; 85025; 85027; 85610; 85651; 85730; 86140; 86850; 86900; 86901; 87086; 93005; 93010; 93880-TC; 97116-GP; 97162-GP; 99285-25; G0378; Q9967

== ENCOUNTER 2024-07-12 18:46 | Observation (INO) | payer OTHER, BC ==
[2024-07-12 19:04] VITALS: BMI 23.8
[2024-07-12] MEDS ORDERED: FAMOTIDINE 20 MG/50 ML IVPB 20 MG/50 ML MG IVPB ONE (19:44)
[2024-07-12] MEDS: FAMOTIDINE 20 MG/50 ML IVPB 20 MG/50 ML MG IVPB ONE (19:50)
[2024-07-12] MEDS: SODIUM CHLORIDE 0.9% 500 ML INFUS.BAG IV ONE (19:50)
[2024-07-12 20:11] LABS: BASO % 0.3 % (0-2.0); EOS % 1.5 % (0-4.5); HEMATOCRIT 40.7 % (32.4-45.2); HEMOGLOBIN 13.8 GM/dL (10.7-15.3); LYMPH % 19.7 % (8-40); MCH 30.7 pg (25.7-33.7); MCHC 33.9 g/dl (32.0-36.0); MEAN CELL VOLUME 90.5 fl (80-96); MEAN PLT VOLUME 7.2 fl (7.5-11.1); MONO % 7.6 % (3.8-10.2); NEUT % 70.9 % (42.8-82.8); PLATELET COUNT 195 10^3/uL (134-434); RBC 4.49 M/mm3 (3.60-5.2); RDW 13.7 % (11.6-15.6); WHITE BLOOD COUNT 4.7 K/mm3 (4.0-10.0)
[2024-07-12 20:16] LABS: INR 1.1 (0.83-1.09); PROTHROMBIN TIME (PATIENT) 12.6 SEC (9.7-13.0)
[2024-07-12 20:19] LABS: ACTIVATED PTT 33.5 SECONDS (25.2-36.5)
[2024-07-12 20:28] LABS: POTASSIUM 3.6 mmol/L (3.5-5.1)
[2024-07-12 20:31] LABS: ALBUMIN 4.7 g/dl (3.4-5.0); CALCIUM 10.4 mg/dL (8.5-10.1)
[2024-07-12 20:32] LABS: MAGNESIUM 2.3 mg/dL (1.8-2.4)
[2024-07-12 20:34] LABS: CREATININE 1.2 mg/dL (0.55-1.3)
[2024-07-12 20:36] LABS: BILIRUBIN,TOTAL 0.5 mg/dL (0.2-1); TOT PROT 8.3 g/dl (6.4-8.2)
[2024-07-12 21:10] LABS: EPI CELLS 1 /uL (0-25.1); HYALINE CASTS 0 /uL (0-3.1); PH,URINE >= 9.0 (5.0-8.0); URINE APPEARANCE CLOUDY; URINE BACTERIA 28 /uL (0-1359); URINE BILIRUBIN NEGATIVE (NEGATIVE); URINE COLOR YELLOW; URINE GLUCOSE (UA) NEGATIVE (NEGATIVE); URINE KETONE NEGATIVE (NEGATIVE); URINE LEUK ESTERASE TRACE (NEGATIVE); URINE NITRITE NEGATIVE (NEGATIVE); URINE PROTEIN NEGATIVE (NEGATIVE); URINE RBC 5 /uL (0-23.9); URINE UROBILINOGEN 0.2 mg/dL (0.2-1.0); URINE WBC 9 /uL (0-25.8)
[2024-07-13] MEDS: SODIUM CHLORIDE 0.45% 1,000 ML IV SCH (04:42)
[2024-07-13] MEDS: amLODIPine BESYLATE 2.5 MG TABLET (FP) PO SCH (04:54)
[2024-07-13 05:39] VITALS: RESP 18
[2024-07-13] MEDS: INSULIN ASPART SLIDING SCALE (NOVOLOG) 1 VIAL SQ SCH (06:37)
[2024-07-13 07:49] LABS: BASO % 0.5 % (0-2.0); EOS % 1.5 % (0-4.5); HEMATOCRIT 38.9 % (32.4-45.2); HEMOGLOBIN 12.8 GM/dL (10.7-15.3); MCH 30.4 pg (25.7-33.7); MCHC 32.9 g/dl (32.0-36.0); MEAN CELL VOLUME 92.6 fl (80-96); MEAN PLT VOLUME 7.2 fl (7.5-11.1); MONO % 9.4 % (3.8-10.2); NEUT % 58.6 % (42.8-82.8); PLATELET COUNT 182 10^3/uL (134-434); RDW 13.9 % (11.6-15.6); WHITE BLOOD COUNT 4.7 K/mm3 (4.0-10.0)
[2024-07-13 08:00] LABS: POTASSIUM 3.7 mmol/L (3.5-5.1)
[2024-07-13 08:02] LABS: CALCIUM 9.3 mg/dL (8.5-10.1)
[2024-07-13 08:03] LABS: ALBUMIN 3.8 g/dl (3.4-5.0); BLOOD UREA NITROGEN 22.4 mg/dL (7-18); MAGNESIUM 2.3 mg/dL (1.8-2.4)
[2024-07-13 08:06] LABS: PHOSPHOROUS 3.2 mg/dL (2.5-4.9)
[2024-07-13 08:08] LABS: BILIRUBIN,TOTAL 0.6 mg/dL (0.2-1); TOT PROT 6.8 g/dl (6.4-8.2)
[2024-07-13] MEDS: LACTOBACILLUS ACIDOPHILUS 1 TABLET PO SCH (09:29)
[2024-07-13] MEDS: PANTOPRAZOLE 40 MG TABLET PO SCH (09:29)
[2024-07-13] MEDS: MULTIVITAMINS THER W-MINERALS COMBO TABLET (FP) PO SCH (09:29)
[2024-07-13] MEDS: CALCIUM (OYSTER SHELL) 500 MG TABLET (FP) PO SCH (09:29)
[2024-07-13] MEDS ORDERED: [UNRECOGNIZED DRUG - OTHER] PO SCH (10:00)
[2024-07-13] MEDS ORDERED: MAGNESIUM CITRATE AND OXIDE 250 MG PO SCH (10:00)
[2024-07-13] MEDS: CITALOPRAM HYDROBROMIDE 10 MG TABLET PO SCH (11:06)
[2024-07-13] MEDS: METHIMAZOLE 5 MG TABLET PO SCH (11:07)
[2024-07-13 15:58] VITALS: BP 120/80; PULSE 80; TEMP 98.2
[2024-07-13] MEDS ORDERED: RIVAROXABAN 15 MG TABLET PO SCH (17:00)
[2024-07-13] MEDS ORDERED: FENOFIBRIC ACID 45 MG CAP PO SCH (22:00)
== END 2024-07-13 15:38 | disposition home or self-care (01) ==
LOC: JER 18:46 → JERBED 22:24 → J4W 07-13 01:20
PROVIDERS: ADMIT Internal Medicine
PROC: 3E033GC Introduction of Other Therapeutic Substance into Peripheral Vein, Percutaneous Approach (ICD-10-PCS; principal; 2024-07-12)
PROC: 3E0337Z Introduction of Electrolytic and Water Balance Substance into Peripheral Vein, Percutaneous Approach (ICD-10-PCS; 2024-07-12)
DX: I95.1 Orthostatic hypotension (principal); Z85.038 Personal history of other malignant neoplasm of large intestine; E78.5 Hyperlipidemia, unspecified; I48.0 Paroxysmal atrial fibrillation; M34.9 Systemic sclerosis, unspecified; F32.A Depression, unspecified; E07.9 Disorder of thyroid, unspecified; I11.9 Hypertensive heart disease without heart failure; Z86.73 Personal history of transient ischemic attack (TIA), and cerebral infarction without residual deficits; Z90.49 Acquired absence of other specified parts of digestive tract; Z90.79 Acquired absence of other genital organ(s); K21.9 Gastro-esophageal reflux disease without esophagitis
CPT/HCPCS: 0241U-QW; 36415; 70450-TC; 71045-TC-FY; 80053; 81003; 82962; 83036; 83690; 83735; 84100; 84484; 85025; 85610; 85730; 93005; 93010; 96361; 96365; 97116-GP; 97161-GP; 99285-25; G0378